=== PATIENT | male | born 1930 | race Caucasian/White ===

== ENCOUNTER 2017-11-16 07:04 | Emergency (ER) | payer OTHER ==
[~2017-11-16] VITALS: Ht 177.8 cm; Wt 75.0 kg
[~2017-11-16 07:04] MED LIST: ASPI81 PO; LISI-363 PO
[2017-11-16 07:08] VITALS: BP 160/71; PULSE 73; RESP 16; TEMP 97.8; O2SAT 99
[2017-11-16] MEDS ORDERED: FAMOTIDINE 20 MG/2 ML VIAL IV PUSH ONE (07:30)
[2017-11-16] MEDS ORDERED: diphenhydrAMINE HCL 50 MG/ML VIAL IVP ONE (07:30)
[2017-11-16] MEDS ORDERED: SODIUM CHLORIDE 0.9% FLUSH 10 ML FLUSH IV FLUSH PRN (07:30)
[2017-11-16] MEDS ORDERED: methylPREDNISolone SOD SUCC 125 MG/2 ML VIAL IV PUSH ONE (07:30)
--- NOTE | 2017-11-16 07:34 | PD ---
HPI Chief Complaint: Allergic/Adverse Reaction Time Seen by Provider: 07:27 Travel History International Travel<30 days: No Contact w/Intl Traveler<30days: No Traveled to known affect area: No History of Present Illness HPI 87-year-old male patient with history of hypertension currently on an MARIA DEL CARMEN inhibitor, presents to the ER today because he woke up this morning felt that his tongue was swollen. He states that he does not have difficulty swallowing and is able to breathe but has to breathe through his nose. He denies any shortness of breath or any other symptoms currently. He states that this has never happened to him before but he has been on MARIA DEL CARMEN inhibitors for years. He denies any other new medications or food. Modifying Factors: None Associated Signs & Symptoms: Tongue swelling Risk Factors: On MARIA DEL CARMEN inhibitor PFSH Past Medical History Cancer: No Cardiovascular Problems: Yes Endocrine: No Genitourinary: No Hypertension: Yes Immune Disorder: No Musculoskeletal: No Neurologic: Yes Psychiatric: No Reproductive: No Respiratory: No Social History Alcohol Use: No Tobacco Use: No Substance Use: No Allergies-Medications (Allergen,Severity, Reaction): Coded Allergies: No Known Allergies (Verified Adverse Reaction, Unknown, 11/16/17) Reported Meds & Prescriptions Reported Meds & Active Scripts Active Reported Aspirin 81 Mg Chew 81 Mg CHEW DAILY Lisinopril 10 Mg Tab 10 Mg PO BID Review of Systems Except as stated in HPI: all other systems reviewed are Neg Physical Exam Narrative GENERAL: Well-developed elderly male patient currently in mild distress. Awake and oriented 3. SKIN: Focused skin assessment warm/dry. HEAD: Atraumatic. Normocephalic. EYES: Pupils equal and round. No scleral icterus. No injection or drainage. ENT: Mucosa pink and moist. There is notable edema of the tongue. No erythema or exudates. No uvular edema. No uvular, palatal, or tonsillar deviation. Airway patent. NECK: Trachea midline. No JVD. Supple. No masses. CARDIOVASCULAR: Regular rate and rhythm. No murmur appreciated. RESPIRATORY: No accessory muscle use. Clear to auscultation. Breath sounds equal bilaterally. GASTROINTESTINAL: Abdomen soft, non-tender, nondistended. Hepatic and splenic margins not palpable. MUSCULOSKELETAL: No obvious deformities. No clubbing. No cyanosis. No edema. NEUROLOGICAL: Awake and alert. No obvious cranial nerve deficits. Motor grossly within normal limits. Slurred speech. PSYCHIATRIC: Appropriate mood and affect; insight and judgment normal. Data Data Last Documented VS Vital Signs Date Time Temp Pulse Resp B/P (MAP) Pulse Ox O2 Delivery O2 Flow Rate FiO2 11/16/17 08:44 54 17 140/65 (90) 99 Room Air 11/16/17 07:08 97.8 Orders Orders Ecg Monitoring (11/16/17 07:27) Iv Access Insert/Monitor (11/16/17 07:27) Oximetry (11/16/17 07:27) Diphenhydramine Inj (Benadryl Inj) (11/16/17 07:30) Methylprednisolone So Succ Inj (Solumedr (11/16/17 07:30) Famotidine Inj (Pepcid Inj) (11/16/17 07:30) Sodium Chloride 0.9% Flush (Ns Flush) (11/16/17 07:30) Ed Discharge Order (11/16/17 10:17) MDM Medical Decision Making Medical Screen Exam Complete: Yes Emergency Medical Condition: Yes Medical Record Reviewed: Yes Differential Diagnosis MARIA DEL CARMEN inhibitor reaction versus allergic reaction/angioedema Narrative Course I suspect an MARIA DEL CARMEN inhibitor reaction in this case. Patient has been on lisinopril for years. I will stop lisinopril. Patient was given Benadryl and Solu-Medrol in the ER. After a few hours, on reevaluation the patient is doing well, states his tongue is feeling better and he is swallowing without issues. At this point, my plan would be to release him with further treatment. We will have him follow-up with his primary care doctor for reevaluation and also for new blood pressure medication. Return for any worsening in symptoms as needed. The plan has been discussed with him and he states understanding. 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
[2017-11-16 07:43] VITALS: BP 149/68; PULSE 65; RESP 17; O2SAT 98
[2017-11-16] MEDS ORDERED: LISI10TA3 PO (07:50)
[2017-11-16] MEDS ORDERED: ASPI-516 CHEW (07:50)
[2017-11-16 08:44] VITALS: BP 140/65; PULSE 54; RESP 17; O2SAT 99
[2017-11-16] MEDS ORDERED: EPIP0.3I SQ (10:20)
[2017-11-16] MEDS ORDERED: MEDR4PAK PO (10:20)
[2017-11-16] MEDS ORDERED: DIPH25TA2 PO (10:20)
[2017-11-16 10:37] VITALS: BP 156/70
== END 2017-11-16 10:43 | disposition home or self-care (01) ==
LOC: NEPC 07:04
DX: T46.4X5A Adverse effect of angiotensin-converting-enzyme inhibitors, initial encounter (principal); T78.3XXA Angioneurotic edema, initial encounter; I10 Essential (primary) hypertension
CPT/HCPCS: 96374; 96375; 99284; J1200; J2930

== ENCOUNTER 2017-11-18 17:23 | Emergency (ER) | payer OTHER ==
[~2017-11-18] VITALS: Ht 180.3 cm; Wt 71.2 kg
[~2017-11-18 17:23] MED LIST changes: +ASPI-516 CHEW; -ASPI81 PO; +DIPH25TA2 PO; +EPIP0.3I SQ; -LISI-363 PO; +LISI10TA3 PO; +MEDR4PAK PO
[2017-11-18 17:33] VITALS: BP 172/72; PULSE 54; RESP 16; TEMP 98.3; O2SAT 98
[2017-11-18] MEDS ORDERED: LOSA25TA PO (17:45)
[2017-11-18] MEDS ORDERED: MULTTAB67 PO (17:45)
--- NOTE | 2017-11-18 19:06 | PD ---
HPI Chief Complaint: Skin Problem Time Seen by Provider: 18:35 Travel History International Travel<30 days: No Contact w/Intl Traveler<30days: No Traveled to known affect area: No History of Present Illness HPI This is an 87-year-old male here for evaluation of bleeding from his right ear at the site of a skin biopsy performed 2 days ago. He reports the area intermittently bleeds. Bleeding is controlled with applied pressure. His granddaughter encouraged him to come seek evaluation today. No fever or pain. Since in severity mild. Minimal active bleeding currently. PFSH Past Medical History Hx Anticoagulant Therapy: Yes (asa 81mg) Cancer: No Cardiovascular Problems: Yes (htn on meds) Diminished Hearing: No Endocrine: No Genitourinary: No Hypertension: Yes Immune Disorder: No Musculoskeletal: No Neurologic: Yes Psychiatric: No Reproductive: No Respiratory: No Immunizations Current: Yes Tetanus Vaccination: < 5 Years Influenza Vaccination: Yes Social History Alcohol Use: No Tobacco Use: No Substance Use: No Allergies-Medications (Allergen,Severity, Reaction): Coded Allergies: lisinopril (Verified Allergy, Severe, tounge swelling, 11/18/17) Reported Meds & Prescriptions Reported Meds & Active Scripts Active Reported Multiple Vitamin 1 Tab 1 Tab PO DAILY Losartan (Losartan Potassium) 25 Mg Tab 25 Mg PO DAILY Aspirin 81 Mg Chew 81 Mg CHEW DAILY Review of Systems Except as stated in HPI: all other systems reviewed are Neg General / Constitutional: No: Fever Eyes: No: Visual changes HENT: No: Headaches Cardiovascular: No: Chest Pain or Discomfort Physical Exam Narrative GENERAL: Alert and well-appearing 87-year-old male SKIN: Warm and dry. Biopsy site to the posterior aspect of the right helix measuring 1 cm. The area has mild bleeding. No evidence of infection HEAD: Normocephalic. EYES: No injection or drainage. Ears/nose/throat: Normal external appearance of the ear. See skin noted above NECK: Supple Data Data Last Documented VS Vital Signs Date Time Temp Pulse Resp B/P (MAP) Pulse Ox O2 Delivery O2 Flow Rate FiO2 11/18/17 17:33 98.3 54 16 172/72 (105) 98 MDM Medical Decision Making Medical Screen Exam Complete: Yes Emergency Medical Condition: Yes Differential Diagnosis Bleeding from biopsy site, wound infection, wound recheck Narrative Course 87-year-old male here for evaluation of bleeding from a skin biopsy site on his right ear. On exam he has minimal bleeding. No evidence of infection. Quick clot hemostatic dressing applied. Hemostasis achieved Diagnosis Primary Impression: Bleeding Referrals: Forest Fire Control Officer Additional Instructions: Keep the dressing in place for 48 hours. To remove the dressing apply warm water or get in the shower and then removed. Follow-up with the helicopter pilot instructor for recheck Disposition: 01 DISCHARGE HOME Condition: Stable Mary Montano Nov 18, 2017 19:06
== END 2017-11-18 19:16 | disposition home or self-care (01) ==
LOC: PHEFT 17:23
DX: H95.42 Postprocedural hemorrhage of ear and mastoid process following other procedure (principal); I10 Essential (primary) hypertension; Z88.8 Allergy status to other drugs, medicaments and biological substances; Z79.82 Long term (current) use of aspirin; Z79.899 Other long term (current) drug therapy
CPT/HCPCS: 12011

== ENCOUNTER 2018-03-01 09:03 | Emergency (ER) | payer OTHER ==
[~2018-03-01 09:03] MED LIST changes: -DIPH25TA2 PO; -EPIP0.3I SQ; -LISI10TA3 PO; +LOSA25TA PO; -MEDR4PAK PO; +MULTTAB67 PO
[2018-03-01 09:04] VITALS: BP 185/76; PULSE 82; RESP 18; TEMP 97.7
[2018-03-01] MEDS ORDERED: IRONTAB5 (09:17)
[2018-03-01] MEDS ORDERED: VITATAB43 PO (09:17)
--- NOTE | 2018-03-01 09:25 | PD ---
HPI Chief Complaint: Dizziness Time Seen by Provider: 09:17 Travel History International Travel<30 days: No Contact w/Intl Traveler<30days: No Traveled to known affect area: No History of Present Illness HPI Patient states that he has been feeling this sharp chest sensation that has been going on repeatedly over the last 2-3 days. Describes the area as substernal, intermittent, lasting approximately an hour at a time, patient has a hard time really developing good description of the pain, HE HAS USED WORDS such as jabbing, pooling, States allergy to lisinopril Past medical history significant for macular degeneration, dizziness, hypertension, ankle fracture surgery PFSH Past Medical History Hx Anticoagulant Therapy: Yes (asa 81mg) Cancer: No Cardiovascular Problems: Yes Diminished Hearing: No Endocrine: No Genitourinary: No Hypertension: Yes Immune Disorder: No Musculoskeletal: No Neurologic: Yes Psychiatric: No Reproductive: No Respiratory: No Immunizations Current: Yes Past Surgical History Other Surgery: No Social History Alcohol Use: No Tobacco Use: No Substance Use: No Allergies-Medications (Allergen,Severity, Reaction): Coded Allergies: lisinopril (Verified Allergy, Severe, tounge swelling, 03/01/18) Reported Meds & Prescriptions Reported Meds & Active Scripts Active Reported [Iron] Vitamin N11-Buhnz Acid (Cobalamine Combinations) 500-400 Mcg Tab 1 Tab PO DAILY Multiple Vitamin 1 Tab 1 Tab PO DAILY Losartan (Losartan Potassium) 25 Mg Tab 25 Mg PO DAILY Aspirin 81 Mg Chew 81 Mg CHEW DAILY Review of Systems General / Constitutional: No: Fever Eyes: No: Visual changes HENT: Positive: Lightheadedness Cardiovascular: Positive: Chest Pain or Discomfort Respiratory: No: Shortness of Breath Gastrointestinal: No: Abdominal Pain Genitourinary: No: Dysuria Musculoskeletal: No: Pain Skin: No Rash Neurologic: Positive: Weakness (Generalized), Dizziness Psychiatric: No: Depression Endocrine: No: Polydipsia Hematologic/Lymphatic: No: Easy Bruising Physical Exam Narrative GENERAL: SKIN: Warm and dry. HEAD: Atraumatic. Normocephalic. EYES: Pupils equal and round. No scleral icterus. No injection or drainage. ENT: No nasal bleeding or discharge. Mucous membranes pink and moist. NECK: Trachea midline. No JVD. CARDIOVASCULAR: Regular rate and rhythm. RESPIRATORY: No accessory muscle use. Clear to auscultation. Breath sounds equal bilaterally. GASTROINTESTINAL: Abdomen soft, non-tender, nondistended. Hepatic and splenic margins not palpable. MUSCULOSKELETAL: Extremities without clubbing, cyanosis, or edema. No obvious deformities. NEUROLOGICAL: Awake and alert. No obvious cranial nerve deficits. Motor grossly within normal limits. Five out of 5 muscle strength in the arms and legs. Normal speech. PSYCHIATRIC: Appropriate mood and affect; insight and judgment normal. Data Data Last Documented VS Vital Signs Date Time Temp Pulse Resp B/P (MAP) Pulse Ox O2 Delivery O2 Flow Rate FiO2 03/01/18 13:12 54 20 176/80 (112) 94 Nasal Cannula 2.00 03/01/18 09:04 97.7 Orders Orders Electrocardiogram (03/01/18 09:17) B-Type Natriuretic Peptide (03/01/18 09:17) Ckmb (Isoenzyme) Profile (03/01/18 09:17) Complete Blood Count With Diff (03/01/18 09:17) Comprehensive Metabolic Panel (03/01/18 09:17) Prothrombin Time / Inr (Pt) (03/01/18 09:17) Act Partial Throm Time (Ptt) (03/01/18 09:17) Troponin I (03/01/18 09:17) Lipase (03/01/18 09:17) Chest, Single Ap (03/01/18 09:17) Ecg Monitoring (03/01/18 09:17) Bilateral Bp Monitoring (03/01/18 09:17) Iv Access Insert/Monitor (03/01/18 09:17) Oximetry (03/01/18 09:17) Oxygen Administration (03/01/18 09:17) Sodium Chloride 0.9% Flush (Ns Flush) (03/01/18 09:30) Ct Pulmonary Angiogram (03/01/18 09:49) Iohexol 350 Inj (Omnipaque 350 Inj) (03/01/18 10:41) Ketorolac Inj (Toradol Inj) (03/01/18 11:15) Troponin I (03/01/18 12:25) Labs Laboratory Tests Test 03/01/18 09:25 03/01/18 11:25 White Blood Count 5.4 TH/MM3 Red Blood Count 3.61 MIL/MM3 Hemoglobin 10.7 GM/DL Hematocrit 30.9 % Mean Corpuscular Volume 85.4 FL Mean Corpuscular Hemoglobin 29.5 PG Mean Corpuscular Hemoglobin Concent 34.6 % Red Cell Distribution Width 14.8 % Platelet Count 174 TH/MM3 Mean Platelet Volume 8.3 FL Neutrophils (%) (Auto) 67.7 % Lymphocytes (%) (Auto) 21.1 % Monocytes (%) (Auto) 6.8 % Eosinophils (%) (Auto) 3.4 % Basophils (%) (Auto) 1.0 % Neutrophils # (Auto) 3.5 TH/MM3 Lymphocytes # (Auto) 1.1 TH/MM3 Monocytes # (Auto) 0.4 TH/MM3 Eosinophils # (Auto) 0.2 TH/MM3 Basophils # (Auto) 0.1 TH/MM3 CBC Comment DIFF FINAL Differential Comment Prothrombin Time 10.2 SEC Prothromb Time International Ratio 1.0 RATIO Activated Partial Thromboplast Time 25.7 SEC Blood Urea Nitrogen 33 MG/DL Creatinine 1.30 MG/DL Random Glucose 95 MG/DL Total Protein 8.1 GM/DL Albumin 3.7 GM/DL Calcium Level 8.8 MG/DL Alkaline Phosphatase 52 U/L Aspartate Amino Transf (AST/SGOT) 14 U/L Alanine Aminotransferase (ALT/SGPT) 16 U/L Total Bilirubin 0.5 MG/DL Sodium Level 141 MEQ/L Potassium Level 4.2 MEQ/L Chloride Level 107 MEQ/L Carbon Dioxide Level 25.5 MEQ/L Anion Gap 9 MEQ/L Estimat Glomerular Filtration Rate 52 ML/MIN Total Creatine Kinase 96 U/L Troponin I LESS THAN 0.02 NG/ML LESS THAN 0.02 NG/ML B-Type Natriuretic Peptide 46 PG/ML Lipase 94 U/L MDM Medical Decision Making Medical Screen Exam Complete: Yes Emergency Medical Condition: Yes Medical Record Reviewed: Yes Interpretation(s) EKG shows normal sinus rhythm, 64 bpm, right bundle branch block pattern, PVCs, no evidence of any SGARBOSSA'S criteria or ST elevation VT Differential Diagnosis Pneumonia versus pneumothorax versus STEMI versus pericardial effusion versus pulmonary embolus Narrative Course CBC does not show any evidence of leukocytosis, mild anemia 10/30, normal platelet count, no left shift Coagulation profile is within normal limits Electrolytes are all within normal limits, normal kidney liver and pancreatic functions. First set of cardiac enzymes are negative, and beta natruretic peptide is 46. CT Angio-Seal read by radiologist as no evidence of pulmonary embolism, coronary artery calcifications, lungs are clear, and no evidence of any pericardial effusion. Diagnosis Primary Impression: Atypical chest Patient Instructions: General Instructions, Noncardiac Chest Pain (ED) Scripts Ketorolac (Ketorolac) 10 Mg Tab 10 MG PO TID Y for Pain Management for 3 Days, #10 TAB 0 Refills Prov: Jean Pierre Tolliver MD 03/01/18 Disposition: 01 DISCHARGE HOME Condition: Stable Jean Pierre Tolliver MD March 01, 2018 09:25
[2018-03-01 09:28] VITALS: O2SAT 98
[2018-03-01] MEDS ORDERED: SODIUM CHLORIDE 0.9% FLUSH 10 ML FLUSH IVF PRN (09:30)
[2018-03-01 09:32] LABS: AUTOMATED NEUTROPHIL # 3.5 TH/MM3 (1.8-7.7); BASOPHIL # 0.1 TH/MM3 (0-0.2); EOSINOPHIL # 0.2 TH/MM3 (0-0.4); EOSINOPHIL % 3.4 % (0.0-4.0); HEMATOCRIT 30.9 % (39.0-51.0); HEMOGLOBIN 10.7 GM/DL (13.0-17.0); LYMPH % 21.1 % (9.0-44.0); LYMPHOCYTE # 1.1 TH/MM3 (1.0-4.8); MEAN CELL VOLUME 85.4 FL (80.0-100.0); MEAN CORPUSCULAR HEMOGLOBIN 29.5 PG (27.0-34.0); MEAN CORPUSCULAR HGB CONC 34.6 % (32.0-36.0); MEAN PLATELET VOLUME 8.3 FL (7.0-11.0); MONO % 6.8 % (0.0-8.0); MONOCYTE # 0.4 TH/MM3 (0-0.9); NEUT % 67.7 % (16.0-70.0); PLATELET COUNT 174 TH/MM3 (150-450); RED BLOOD COUNT 3.61 MIL/MM3 (4.50-5.90); RED CELL DISTRIBUTION WIDTH 14.8 % (11.6-17.2); WHITE BLOOD COUNT 5.4 TH/MM3 (4.0-11.0)
[2018-03-01 09:44] LABS: PROTHROMBIN TIME - PATIENT 10.2 SEC (9.8-11.6)
[2018-03-01 09:58] VITALS: BP_SYST 171; BP_SYST 174; BP_DIAS 70; BP_DIAS 76; PULSE 61; RESP 20; O2SAT 100
--- NOTE | 2018-03-01 10:04 | RADRPT ---
EXAM DATE: 03/01/2018 10:01 AM EDT AGE/SEX: 88 years / Male INDICATIONS: Chest pain, short of breath. CLINICAL DATA: This is the patient's initial encounter. Patient reports that signs and symptoms have been present for 1 day and indicates a pain score of 1/10. MEDICAL/SURGICAL HISTORY: Hypertension. None. COMPARISON: [facility] [place], 06/27/2011. . FINDINGS: No new focal pleural or parenchymal opacities. Cardiomediastinal contours are stable. Osseous structu res are intact. CONCLUSION: 1. No acute abnormality or significant interval change. Electronically signed by: Quirino Butler MD 03/01/2018 10:02 AM EDT
[2018-03-01 10:13] LABS: ALBUMIN 3.7 GM/DL (3.4-5.0); BICARBONATE 25.5 MEQ/L (21.0-32.0); CALCIUM 8.8 MG/DL (8.5-10.1); GLUCOSE,RANDOM 95 MG/DL (74-106)
[2018-03-01 10:16] LABS: ALT (GPT) 16 U/L (12-78); AST (GOT) 14 U/L (15-37); GLOMERULAR FILTRATION RATE 52 ML/MIN (>89)
[2018-03-01 10:18] LABS: TOTAL BILIRUBIN ADULT 0.5 MG/DL (0.2-1.0); TOTAL PROTEIN 8.1 GM/DL (6.4-8.2)
[2018-03-01 10:19] LABS: ALKALINE PHOSPHATASE 52 U/L (45-117); CHLORIDE 107 MEQ/L (98-107); SODIUM (NA) 141 MEQ/L (136-145)
[2018-03-01 10:21] LABS: TROPONIN I LESS THAN 0.02 NG/ML (0.02-0.05)
[2018-03-01 10:24] LABS: BLOOD UREA NITROGEN 33 MG/DL (7-18)
[2018-03-01] MEDS ORDERED: IOHEXOL 350 MG/ML 10 ML VIAL (for RAD DIAG) IVCONTRAST ONE (10:41)
[2018-03-01 10:50] VITALS: BP 164/74; PULSE 54; RESP 20; O2SAT 93
--- NOTE | 2018-03-01 10:53 | RADRPT ---
EXAM DATE: 03/01/2018 10:40 AM EDT AGE/SEX: 88 years / Male INDICATIONS: Intermittent chest pain and dizziness since last night. CLINICAL DATA: This is the patient's initial encounter. Patient reports that signs and symptoms have been present for 1 day and indicates a pain score of 2/10. MEDICAL/SURGICAL HISTORY: Hypertension. Cardiovascular disease. None. RADIATION DOSE: 10.78 CTDI (mGy) COMPARISON: [facility], CHEST SINGLE AP, 03/01/2018. . TECHNIQUE: Volumetric scanning was performed using a multi-row detector CT scanner during bolus infu chelsey of 75 ml Omnipaque 350 (iohexol) nonionic water-soluble contrast as a single exam dose. The gmóez a was post processed with a variety of visualization algorithms including full volume maximum intensi ty projection and sliding thin slab reformation. Using automated exposure control and adjustment of the mA and/or kV according to patient size, radiation dose was kept as low as reasonably achievable t o obtain optimal diagnostic quality images. FINDINGS: Pulmonary Arteries: No filling defects are seen in the pulmonary arteries out to the subsegmental ve ssels. The left and right pulmonary arteries are normal in diameter. Lung: No infiltrates seen. Effusion: None. Mediastinum: No evidence of mediastinal or hilar adenopathy. Coronary artery calcifications are pres ent. Other: The axilla is unremarkable. CONCLUSION: 1. No evidence of pulmonary embolism. 2. The lungs are clear. 3. Coronary artery calcifications. Electronically signed by: Scott Sal MD 03/01/2018 10:51 AM EDT
[2018-03-01] MEDS ORDERED: KETOROLAC TROMETHAMINE 30 MG/ML (IVP) VIAL IV PUSH ONE (11:15)
[2018-03-01 11:50] VITALS: BP 169/70; PULSE 61; RESP 20; O2SAT 100
[2018-03-01 13:12] VITALS: BP 176/80; PULSE 54; RESP 20; O2SAT 94
[2018-03-01] MEDS ORDERED: KETO10 PO (14:01)
--- NOTE | 2018-03-01 14:49 | EKG ---
Date Performed: 03/01/2018 Time Performed: 09:17:45 PTAGE: 88 years EKG: Sinus rhythm WITH OCCASIONAL VENTRICULAR PREMATURE COMPLEXES MARKED LEFT AXIS DEVIATION RIGHT BUNDLE BRANCH BLOCK Left anterior fascicular block ABNORMAL ECG PREVIOUS TRACING : 06/28/2011 08.44 DOCTOR: Austin Carbajal Interpretating Date/Time 03/01/2018 14:45:40
== END 2018-03-01 14:19 | disposition home or self-care (01) ==
LOC: PHED 09:03
DX: R07.89 Other chest pain (principal); I10 Essential (primary) hypertension; R42 Dizziness and giddiness; R94.31 Abnormal electrocardiogram [ECG] [EKG]; R53.1 Weakness; Z88.8 Allergy status to other drugs, medicaments and biological substances; Z79.82 Long term (current) use of aspirin
CPT/HCPCS: 71045; 71275; 80053; 82550; 83690; 83880; 84484; 85025; 85610; 85730; 93005; 96374; 99285; J1885; Q9967

== ENCOUNTER 2018-03-14 09:39 | Observation (INO) | payer OTHER ==
[~2018-03-14] VITALS: Ht 180.3 cm; Wt 61.4 kg
[2018-03-14] VITALS (8 sets, daily range): BP systolic 116–181; BP diastolic 57–78; PULSE 56–82; RESP 16–22; TEMP 96–98.7; O2SAT 95–100
[~2018-03-14 09:39] MED LIST changes: +IRONTAB5; +KETO10 PO; +VITATAB43 PO
[2018-03-14] MEDS ORDERED: SODIUM CHLOR 0.9% 1000 ML INJ 1,000 ML IV ONE (09:51)
--- NOTE | 2018-03-14 09:57 | PD ---
HPI Chief Complaint: Neuro Symptoms/ Deficits Time Seen by Provider: 09:44 Travel History International Travel<30 days: No Contact w/Intl Traveler<30days: No Traveled to known affect area: No History of Present Illness HPI This 88-year-old man is brought by family members because of slurred speech. He lives with his grandson who saw him at 630 and said he seemed okay. His girlfriend called him at 830 and so the gentleman was slurring his speech. The son says that he had trouble standing. He was leaning to one side. He is not complaining of headache. He does have a history of dementia. The son thinks he may have had a stroke several years ago. He is not on any blood thinners. He was evaluated here for atypical chest pain on March 01. At that time his creatinine was 1.3. PFSH Past Medical History Hx Anticoagulant Therapy: Yes (asa 81mg) Cancer: No Cardiovascular Problems: Yes Diminished Hearing: No Endocrine: No Genitourinary: No Hypertension: Yes Immune Disorder: No Musculoskeletal: No Neurologic: Yes Psychiatric: No Reproductive: No Respiratory: No Immunizations Current: Yes Past Surgical History Other Surgery: No Social History Alcohol Use: No Tobacco Use: No Substance Use: No Allergies-Medications (Allergen,Severity, Reaction): Coded Allergies: lisinopril (Verified Allergy, Severe, tounge swelling, 03/14/18) Reported Meds & Prescriptions Reported Meds & Active Scripts Active Reported Ferrous Sulfate 325 Mg (65 Mg Iron) Tablet 325 Mg PO DAILY Thera-M (Multiple Vitamins W/ Minerals) 1 Tab 1 Tab PO DAILT Quetiapine (Quetiapine Fumarate) 50 Mg Tab 50 Mg PO HS Donepezil 10 Mg Tab 10 Mg PO HS Vitamin E23-Keifj Acid (Cobalamine Combinations) 500-400 Mcg Tab 1 Tab PO DAILY Losartan (Losartan Potassium) 25 Mg Tab 25 Mg PO DAILY Aspirin 81 Mg Chew 81 Mg CHEW DAILY Review of Systems ROS Limitations: Poor Historian Except as stated in HPI: all other systems reviewed are Neg Neurologic: Positive: Weakness, Slurred Speech Physical Exam Narrative GENERAL: Elderly male SKIN: Focused skin assessment warm/dry. HEAD: Atraumatic. Normocephalic. EYES: Pupils equal and round. No scleral icterus. No injection or drainage. ENT: No nasal bleeding or discharge. Mucous membranes pink and moist. NECK: Trachea midline. No JVD. CARDIOVASCULAR: Regular rate and rhythm. No murmur appreciated. RESPIRATORY: No accessory muscle use. Clear to auscultation. Breath sounds equal bilaterally. GASTROINTESTINAL: Abdomen soft, non-tender, nondistended. Hepatic and splenic margins not palpable. MUSCULOSKELETAL: No obvious deformities. No clubbing. No cyanosis. No edema. NEUROLOGICAL: Awake and alert. No obvious cranial nerve deficits. Motor grossly within normal limits. Speech is slurred. There is no obvious weakness. Sensation appears to be intact. He is oriented to the year but not to the month. He does know he is in [place]. He is confused and asks questions repeatedly. Psychiatric: He is somewhat volatile he gets angry easily Data Data Last Documented VS Vital Signs Date Time Temp Pulse Resp B/P (MAP) Pulse Ox O2 Delivery O2 Flow Rate FiO2 03/14/18 11:20 82 16 121/57 (78) 99 Room Air 03/14/18 09:40 98.7 Orders Orders Cath For Specimen (03/14/18 09:51) Neuro Checks Q2HX12,Q4H (03/14/18 09:51) Nursing Bedside Swallow Assess .ONCE (03/14/18 09:51) Activity Bed Rest (03/14/18 09:51) Diet Npo (03/14/18 Breakfast) Prothrombin Time / Inr (Pt) (03/14/18 09:51) Act Partial Throm Time (Ptt) (03/14/18 09:51) Complete Blood Count With Diff (03/14/18 09:51) Basic Metabolic Panel (Bmp) (03/14/18 09:51) Fibrinogen (03/14/18 09:51) Creatine Kinase (Cpk) (03/14/18 09:51) Troponin I (03/14/18 09:51) Ua Includes Microscopic (03/14/18 09:51) Drug Screen, Random Urine (03/14/18 09:51) Type And Screen (03/14/18 09:51) Ct Brain W/O Iv Contrast(Rout) (03/14/18 ) Electrocardiogram (03/14/18 ) Consult Neurology (03/14/18 09:51) Sodium Chlor 0.9% 1000 Ml Inj (Ns 1000 M (03/14/18 09:51) Blood Glucose (6/13/18 09:51) Ecg Monitoring (03/14/18 09:51) Iv Access Insert/Monitor (03/14/18 09:51) NPO (03/14/18 09:51) Oximetry (03/14/18 09:51) Resp Oxygen Nc Stroke (03/14/18 ) Cta Brain W Iv Contrast W 3d (03/14/18 09:58) Cta Neck W Iv Contrast W 3d (03/14/18 09:58) Mri Brain W/O Contrast (03/14/18 10:23) Iodixanol 320 Inj (Rad Ct) (Visipaque 32 (03/14/18 10:34) (Hub Use Only)Inp Phy Cons/Ref (03/14/18 10:46) Aspirin (Aspirin) (03/14/18 11:30) Admit Order (Ed Use Only) (03/14/18 11:24) Labs Laboratory Tests Test 03/14/18 09:48 White Blood Count 6.1 TH/MM3 Red Blood Count 3.41 MIL/MM3 Hemoglobin 10.2 GM/DL Hematocrit 29.0 % Mean Corpuscular Volume 85.2 FL Mean Corpuscular Hemoglobin 29.8 PG Mean Corpuscular Hemoglobin Concent 35.0 % Red Cell Distribution Width 14.6 % Platelet Count 193 TH/MM3 Mean Platelet Volume 8.3 FL Neutrophils (%) (Auto) 79.6 % Lymphocytes (%) (Auto) 13.5 % Monocytes (%) (Auto) 5.7 % Eosinophils (%) (Auto) 0.8 % Basophils (%) (Auto) 0.4 % Neutrophils # (Auto) 5.0 TH/MM3 Lymphocytes # (Auto) 0.8 TH/MM3 Monocytes # (Auto) 0.3 TH/MM3 Eosinophils # (Auto) 0.0 TH/MM3 Basophils # (Auto) 0.0 TH/MM3 CBC Comment DIFF FINAL Differential Comment Prothrombin Time 10.6 SEC Prothromb Time International Ratio 1.0 RATIO Activated Partial Thromboplast Time 25.4 SEC Fibrinogen 265 mg/dL Blood Urea Nitrogen 27 MG/DL Creatinine 1.30 MG/DL Random Glucose 112 MG/DL Calcium Level 8.4 MG/DL Sodium Level 141 MEQ/L Potassium Level 4.3 MEQ/L Chloride Level 106 MEQ/L Carbon Dioxide Level 26.6 MEQ/L Anion Gap 8 MEQ/L Estimat Glomerular Filtration Rate 52 ML/MIN Total Creatine Kinase 136 U/L Troponin I LESS THAN 0.02 NG/ML MDM Medical Decision Making Medical Screen Exam Complete: Yes Emergency Medical Condition: Yes Medical Record Reviewed: Yes Differential Diagnosis Differential includes CVA, TIA, adverse medication reaction Narrative Course CT is read as negative. A CTA has been done and there is some blockage at the right carotid. She has been given aspirin. He will be admitted this appears to be a stroke or TIA. He still has some residual slurred speech though the speech seemed worse when he first came in. Case was discussed with Dr. Lobato. He was not thought to be a candidate for TPA. The timing is a little bit confusing and the deficit is relatively mild. The risks would be high because of his advanced age and dementia Diagnosis Primary Impression: CVA (cerebral vascular accident) Admitting Information Admitting Physician Requests: Admit Disposition: 01 DISCHARGE HOME Condition: Stable Jeff Guajardo MD Mar 14, 2018 09:57
[2018-03-14 10:02] LABS: BASOPHIL % 0.4 % (0.0-2.0); EOSINOPHIL % 0.8 % (0.0-4.0); HEMOGLOBIN 10.2 GM/DL (13.0-17.0); LYMPH % 13.5 % (9.0-44.0); LYMPHOCYTE # 0.8 TH/MM3 (1.0-4.8); MEAN CELL VOLUME 85.2 FL (80.0-100.0); MEAN CORPUSCULAR HEMOGLOBIN 29.8 PG (27.0-34.0); MEAN PLATELET VOLUME 8.3 FL (7.0-11.0); MONO % 5.7 % (0.0-8.0); MONOCYTE # 0.3 TH/MM3 (0-0.9); NEUT % 79.6 % (16.0-70.0); PLATELET COUNT 193 TH/MM3 (150-450); RED BLOOD COUNT 3.41 MIL/MM3 (4.50-5.90); RED CELL DISTRIBUTION WIDTH 14.6 % (11.6-17.2); WHITE BLOOD COUNT 6.1 TH/MM3 (4.0-11.0)
--- NOTE | 2018-03-14 10:06 | RADRPT ---
EXAM DATE: 03/14/2018 10:02 AM EDT AGE/SEX: 88 years / Male INDICATIONS: Stroke alert. Slurred speech. Altered mental status. CLINICAL DATA: This is the patient's initial encounter. Patient reports that signs and symptoms have been present for 1 day and indicates a pain score of 0/10. MEDICAL/SURGICAL HISTORY: Hypertension. Dementia. None. RADIATION DOSE: 56.13 CTDI (mGy) COMPARISON: [facility] – [place], [place] BRAIN W/O CONTRAST, 06/27/2011. . TECHNIQUE: CT of the head without contrast. Using automated exposure control and adjustment of the mA and/or kV according to patient size, radiation dose was kept as low as reasonably achievable to ob tain optimal diagnostic quality images. FINDINGS: Cerebrum: The ventricles are normal for age. No evidence of midline shift, mass lesion, hemorrhage or acute infarction. No extraaxial fluid collections are seen. Posterior Fossa: The cerebellum and brainstem are intact. The 4th ventricle is midline. The cerebe llopontine angle is unremarkable. Extracranial: The visualized portion of the orbits is intact. Skull: The calvaria is intact. No evidence of skull fracture. CONCLUSION: 1. Negative for acute process Electronically signed by: Seth Gonzales MD 03/14/2018 10:05 AM EDT
[2018-03-14 10:22] LABS: CHLORIDE 106 MEQ/L (98-107); SODIUM (NA) 141 MEQ/L (136-145)
[2018-03-14 10:25] LABS: PROTHROMBIN TIME - PATIENT 10.6 SEC (9.8-11.6)
[2018-03-14 10:26] LABS: CALCIUM 8.4 MG/DL (8.5-10.1)
[2018-03-14 10:27] LABS: BICARBONATE 26.6 MEQ/L (21.0-32.0); BLOOD UREA NITROGEN 27 MG/DL (7-18); GLUCOSE,RANDOM 112 MG/DL (74-106)
[2018-03-14 10:30] LABS: GLOMERULAR FILTRATION RATE 52 ML/MIN (>89)
[2018-03-14] MEDS ORDERED: FERR325T18 PO (10:33)
[2018-03-14] MEDS ORDERED: THERTAB17 PO (10:33)
[2018-03-14] MEDS ORDERED: QUET5TAB PO (10:33)
[2018-03-14] MEDS ORDERED: DONE10TA7 PO (10:33)
[2018-03-14] MEDS ORDERED: IODIXANOL 320 MG/ML 10 ML VIAL (for Rad CT) IVCONTRAST ONE (10:34)
[2018-03-14 10:35] LABS: TROPONIN I LESS THAN 0.02 NG/ML (0.02-0.05)
--- NOTE | 2018-03-14 11:11 | RADRPT ---
EXAM DATE: 03/14/2018 10:22 AM EDT AGE/SEX: 88 years / Male INDICATIONS: Stroke alert. Slurred speech. Altered mental status. CLINICAL DATA: This is the patient's initial encounter. Patient reports that signs and symptoms have been present for 1 day and indicates a pain score of 0/10. MEDICAL/SURGICAL HISTORY: Hypertension. Dementia. None. RADIATION DOSE: 42.27 CTDI (mGy) ; Combined studies COMPARISON: No prior exams available for comparison. TECHNIQUE: Volumetric scanning was performed using a multi-row detector CT scanner during bolus infu chelsey of 95 ml Visipaque 320 (iodixanol) nonionic water-soluble contrast as a cumulative dose for mul tiple exams. The data was post processed with a variety of visualization algorithms including full volume maximum intensity projection, multi-planar sliding thin slab reformation, curved planar reform ation, and surface rendering techniques. Using automated exposure control and adjustment of the mA a nd/or kV according to patient size, radiation dose was kept as low as reasonably achievable to obtain optimal diagnostic quality images. FINDINGS: There is excellent visualization of the major intracranial arteries out to the second-order branch ve ssels. There is no evidence for aneurysm, vessel truncation or stenosis, and no evidence for vascula r malformation. Moderate atherosclerotic intracranial vascular disease. CONCLUSION: 1. Moderate atherosclerotic intracranial vascular disease without major branch vessel occlusion. Electronically signed by: Seth Gonzales MD 03/14/2018 11:10 AM EDT
--- NOTE | 2018-03-14 11:13 | RADRPT ---
EXAM DATE: 03/14/2018 10:37 AM EDT AGE/SEX: 88 years / Male INDICATIONS: Stroke alert. Slurred speech. Altered mental status. CLINICAL DATA: This is the patient's initial encounter. Patient reports that signs and symptoms have been present for 1 day and indicates a pain score of 0/10. MEDICAL/SURGICAL HISTORY: Hypertension. Dementia. None. RADIATION DOSE: 42.27 CTDI (mGy) COMPARISON: [facility] – [place] CAROTID ARTERIES, 06/28/2011. . TECHNIQUE: Volumetric scanning was performed using a multirow detector CT scanner during bolus infus ion of 95 ml Visipaque 320 (iodixanol) nonionic water-soluble contrast as a cumulative dose for mult iple exams. The data was postprocessed with a variety of visualization algorithms including full-vo lume maximum intensity projection, multiplanar sliding thin-slab reformation, curved-planar reformati on, and surface-rendering techniques. Using automated exposure control and adjustment of the mA and/ or kV according to patient size, radiation dose was kept as low as reasonably achievable to obtain op timal diagnostic quality images. FINDINGS: Aortic Arch: Moderate vascular calcifications are seen at the origin of the innominate artery, and l eft subclavian. Left carotid arises from a bovine configuration. Right Carotid: Moderate osseous chronic vascular calcifications are evident, not felt to be hemodyna mically significant. The bulk of the plaque is hard. Left Carotid: Minimal soft plaque is evident with moderate calcification at the origin. Lumen is com promised I 60-70%. Carotid ultrasound be of benefit to exclude significant stenosis. Vertebrals: Both vertebral arteries are patent with this right small and diminutive. Elevated flow velocities and ICA/CCA ratios have been found to correlate with increased degrees of ve ssel stenosis, calculated as percentage of diameter relative to a normal segment of distal ICA/CCA. CONCLUSION: 1. Borderline significant stenosis on the left. Ultrasound the carotids would be of benefit. Electronically signed by: Seth Gonzales MD 03/14/2018 11:12 AM EDT
[2018-03-14] MEDS ORDERED: SODIUM CHLORIDE 0.9% FLUSH 10 ML FLUSH IV FLUSH PRN (11:30)
[2018-03-14] MEDS ORDERED: ASPIRIN 325 MG TAB PO ONE (11:30)
--- NOTE | 2018-03-14 11:50 | HHI.HP ---
[facility] Service [facility] Primary Care Physician [facility] Admission Diagnosis CVA, TIA Diagnoses: Chief Complaint: ams Travel History International Travel<30 Days: No Contact w/Intl Traveler <30 Da: No Traveled to Known Affected Are: No History of Present Illness patient is a 88-year-old gentleman with a history of progressive dementia. He had an episode of confusion with some slurred speech while being quite antagonizing to his family members with whom he lives. He notes no chest pain or shortness of breath. He has had no symptoms of diarrhea or cough. At this time he appears to be back to baseline per the family at the bedside. His speech is back to baseline. He is following commands. He is moving all 4 extremities and there is no focal deficit. Patient reports he was recently started on "memory pills "due to worsening dementia. Patient was brought to the emergency room for further evaluation due to acute neurological complaints. Initial imaging is unremarkable. Patient will be observed in the hospital for further evaluation Review of Systems Constitutional: DENIES: Diaphoretic episodes, Fatigue, Fever, Weight gain, Weight loss, Chills, Dizziness, Change in appetite, Night Sweats Endocrine: DENIES: Heat/cold intolerance, Polydipsia, Polyuria, Polyphagia Eyes: DENIES: Blurred vision, Diplopia, Eye inflammation, Eye pain, Vision loss , Photosensitivity, Double Vision Ears, nose, mouth, throat: DENIES: Tinnitus, Hearing loss, Vertigo, Nasal discharge, Oral lesions, Throat pain, Hoarseness, Ear Pain, Running Nose, Epistaxis, Sinus Pain, Toothache, Odynophagia Respiratory: DENIES: Apneas, Cough, Snoring, Wheezing, Hemoptysis, Sputum production, Shortness of breath Cardiovascular: DENIES: Chest pain, Palpitations, Syncope, Dyspnea on Exertion , PND, Lower Extremity Edema, Orthopnea, Claudication Gastrointestinal: DENIES: Abdominal pain, Black stools, Bloody stools, Constipation, Diarrhea, Nausea, Vomiting, Difficulty Swallowing, Anorexia Genitourinary: DENIES: Sexual dysfunction, Urinary frequency, Urinary incontinence, Urgency, Hematuria, Dysuria, Nocturia, Penile Discharge, Testicular Pain, Testicular Swelling Musculoskeletal: DENIES: Joint pain, Muscle aches, Stiffness, Joint Swelling, Back pain, Neck pain Integumentary: DENIES: Abnormal pigmentation, Nail changes, Pruritus, Rash Hematologic/lymphatic: DENIES: Bruising, Lymphadenopathy Immunologic/allergic: DENIES: Eczema, Urticaria Neurologic: DENIES: Abnormal gait, Headache, Localized weakness, Paresthesias, Seizures, Speech Problems, Tremor, Poor Balance Psychiatric: COMPLAINS OF: Confusion, DENIES: Anxiety, Mood changes, Depression , Hallucinations, Agitation, Suicidal Ideation, Homicidal Ideation, Delusions Past Family Social History Past Medical History Dementia Hypertension Iron deficiency anemia Past Surgical History Denies Reported Medications Reviewed in the EMR, recently prescribed Seroquel and donezepil but has not yet started Allergies: Coded Allergies: lisinopril (Verified Allergy, Severe, tounge swelling, 03/14/18) Active Ordered Medications Reviewed in the EMR Family History Patient does not recall Social History Lives with his family, independent with ADLs No tobacco, alcohol or illicit drug use Physical Exam Vital Signs Vital Signs Date Time Temp Pulse Resp B/P (MAP) Pulse Ox O2 Delivery O2 Flow Rate FiO2 03/14/18 11:20 82 16 121/57 (78) 99 Room Air 03/14/18 09:45 Room Air 03/14/18 09:40 98.7 72 18 116/69 (85) 98 03/14/18 09:40 18 98 Room Air 03/14/18 09:40 98 Room Air Physical Exam GENERAL: This is a well-nourished, well-developed patient, in no apparent distress. Poor dentition SKIN: No rashes, ecchymoses or lesions. Cool and dry. HEAD: Atraumatic. Normocephalic. No temporal or scalp tenderness. EYES: Pupils equal round and reactive. Extraocular motions intact. No scleral icterus. No injection or drainage. ENT: Nose without bleeding, purulent drainage or septal hematoma. Throat without erythema, tonsillar hypertrophy or exudate. Uvula midline. Airway patent. NECK: Trachea midline. No JVD or lymphadenopathy. Supple, nontender, no meningeal signs. CARDIOVASCULAR: Regular rate and rhythm without murmurs, gallops, or rubs. RESPIRATORY: Clear to auscultation. Breath sounds equal bilaterally. No wheezes , rales, or rhonchi. GASTROINTESTINAL: Abdomen soft, non-tender, nondistended. No hepato-splenomegaly , or palpable masses. No guarding. MUSCULOSKELETAL: Extremities without clubbing, cyanosis, or edema. No joint tenderness, effusion, or edema noted. No calf tenderness. Negative Homans sign bilaterally. NEUROLOGICAL: Awake and alert. Cranial nerves II through XII intact. Motor and sensory grossly within normal limits. Five out of 5 muscle strength in all muscle groups. Normal speech. Laboratory Laboratory Tests Test 03/14/18 09:48 White Blood Count 6.1 Red Blood Count 3.41 Hemoglobin 10.2 Hematocrit 29.0 Mean Corpuscular Volume 85.2 Mean Corpuscular Hemoglobin 29.8 Mean Corpuscular Hemoglobin Concent 35.0 Red Cell Distribution Width 14.6 Platelet Count 193 Mean Platelet Volume 8.3 Neutrophils (%) (Auto) 79.6 Lymphocytes (%) (Auto) 13.5 Monocytes (%) (Auto) 5.7 Eosinophils (%) (Auto) 0.8 Basophils (%) (Auto) 0.4 Neutrophils # (Auto) 5.0 Lymphocytes # (Auto) 0.8 Monocytes # (Auto) 0.3 Eosinophils # (Auto) 0.0 Basophils # (Auto) 0.0 CBC Comment DIFF FINAL Differential Comment Prothrombin Time 10.6 Prothromb Time International Ratio 1.0 Activated Partial Thromboplast Time 25.4 Fibrinogen 265 Blood Urea Nitrogen 27 Creatinine 1.30 Random Glucose 112 Calcium Level 8.4 Sodium Level 141 Potassium Level 4.3 Chloride Level 106 Carbon Dioxide Level 26.6 Anion Gap 8 Estimat Glomerular Filtration Rate 52 Total Creatine Kinase 136 Troponin I LESS THAN 0.02 Result Diagram: 03/14/1894703/14/18947 Imaging Last Impressions Neck CTA 03/14/18957 Signed Impressions: CONCLUSION: 1. Borderline significant stenosis on the left. Ultrasound the carotids would be of benefit. Head CTA 03/14/18957 Signed Impressions: CONCLUSION: 1. Moderate atherosclerotic intracranial vascular disease without major [facility] h vessel occlusion. Head CT 03/14/18 0000 Signed Impressions: CONCLUSION: 1. Negative for acute process Assessment and Plan Problem List: (1) Neurological symptoms ICD Code: R29.90 - Unspecified symptoms and signs involving the nervous system Plan: Patient with unclear presentation whether it was a TIA versus acute psychosis related to dementia remains unchanged. Current neurologic workup in progress for her MRI. CT, CTA head and neck unremarkable at this time. Patient blood pressure stable. Urinalysis is pending We will follow clinically. Patient was recently put on quetiapine and danazepil for increased dementia symptoms. Care plan discussed with the ER MD and family at bedside. Code Status DO NOT RESUSCITATE Discussed Condition With Patient, son, ER Kiley Hairston MD Mar 14, 2018 11:50
[2018-03-14 12:08] LABS: BILIRUBIN, URINE NEG (NEG); BLOOD, URINE TRACE (NEG); GLUCOSE,URINE NEG (NEG); KETONE, URINE NEG (NEG); NITRITE,URINE NEG (NEG); PH, URINE 5.5 (5.0-8.5); URINE COLOR YELLOW (YELLW/STRAW); URINE LEUKOCYTE ESTERASE NEG (NEG)
[2018-03-14 12:16] LABS: WBC, URINE 0-2 /hpf (0-5)
--- NOTE | 2018-03-14 12:38 | RADRPT ---
EXAM DATE: 03/14/2018 12:29 PM EDT AGE/SEX: 88 years / Male INDICATIONS: CVA. Slurred speech. CLINICAL DATA: This is the patient's initial encounter. Patient reports that signs and symptoms have been present for 1 day and indicates a pain score of 0/10. MEDICAL/SURGICAL HISTORY: Hypertension. . Right ankle. COMPARISON: No prior exams available for comparison. TECHNIQUE: Multiplanar, multisequence examination of the brain was performed without contrast. FINDINGS: There is no recent infarct on the diffusion-weighted images. There is no mass effect or midline shift . No hydrocephalus. Mild white matter ischemic changes are present. No sellar mass. No abnormal extra -axial fluid collections CONCLUSION: 1. No recent infarct or acute findings. Mild white matter ischemic changes, chronic. Electronically signed by: Odell Banks MD 03/14/2018 12:37 PM EDT
--- NOTE | 2018-03-14 13:05 | EKG ---
Date Performed: 03/14/2018 Time Performed: 09:47:57 PTAGE: 88 years EKG: Sinus rhythm WITH FREQUENT VENTRICULAR PREMATURE COMPLEXES RIGHT BUNDLE BRANCH BLOCK LEFT ANTERIOR FASCICULAR BLO CK POSSIBLE SEPTAL MYOCARDIAL INFARCTION ABNORMAL ECG INTERPRETATION BASED ON A DEFAULT AGE OF 40 ROGELIO CURRY PREVIOUS TRACING : 03/01/2018 09.17 DOCTOR: Milton Moncada Interpretating Date/Time 03/14/2018 13:03:08
[2018-03-14] MEDS: HEPARIN SODIUM - SQ 10,000 UNITS/ML VIAL SQ SCH ×2 (14:07→21:23)
--- NOTE | 2018-03-14 16:07 | RADRPT ---
EXAM DATE: 03/14/2018 3:35 PM EDT AGE/SEX: 88 years / Male INDICATIONS: Altered mental status. Slurred speech. CLINICAL DATA: This is the patient's initial encounter. Patient reports that signs and symptoms have been present for 1 day and indicates a pain score of 0/10. MEDICAL/SURGICAL HISTORY: . Hypertension. Dementia . COMPARISON: [facility] – [place], CAROTID ARTERIES, 06/28/2011. . CTA done here. VELOCITY PARAMETERS: ICA/CCA Ratio: Right 2.1 , Left 1.5 ICA: Right 95.2 cm/sec, Left 87.7 cm/sec CCA: Right 45.1 cm/sec, Left 60.3 cm/sec ECA: Right 76.3 cm/sec, Left 65.3 cm/sec Vertebral: Right not visualized. cm/sec absent, Left 61.2 cm/sec antegrade FINDINGS: Right Carotid: Calcific plaque on the right and elevated ratio and depressed velocities. Stenosis is is not felt to be significant at this time. Left Carotid: Calcified plaque without hemodynamically significant stenosis. Other: None antegrade flow both vertebral bodies.. CONCLUSION: Calcified plaques bilaterally worse on the right not felt to be significant at this time by asaf bloom. CT angiogram may be helpful. Electronically signed by: Seth Gonzales MD 03/14/2018 3:43 PM EDT
--- NOTE | 2018-03-14 16:15 | MB ---
cc: Lisseth Lobato MD DATE: 03/14/2018 REASON FOR CONSULTATION: Initially stroke alert. HISTORY OF PRESENT ILLNESS: An 88-year-old man with a history of dementia with confusion and some slurred speech today, worried that he may have had a stroke, came in as a stroke alert. Symptoms had improved by the time he came here and given his questionable symptoms, he was not deemed to be a TPA candidate. He seems to be moving everything now equally, is confused, needing to use a urinal. He has a history of dementia, hypertension, iron deficiency anemia. HOME MEDICATIONS: Aricept, Seroquel. ALLERGIES: LISINOPRIL. SOCIAL HISTORY: Lives with family, does not smoke, drink or use drugs. PHYSICAL EXAMINATION: GENERAL: He is awake and alert. NECK: Supple, no bruits. HEART: Regular. NEUROLOGIC: He knows himself. His pupils are reactive. Face symmetrical. Tongue midline. Motor: I do not see any lateralizing weakness. Withdraws, holds his arms up. Toes downgoing. DTRs are 1+. Gait is withheld at this time. IMAGING: Brain MRI did not show anything acute. His CTA showed possible borderline left carotid. They recommend a carotid ultrasound, I did order that. [place] showed moderate atherosclerosis. LABORATORY DATA: Reviewed. Hemoglobin 10.2. Chemistries: BUN 27, GFR 52. Hemoglobin A1c is pending. Lipids are pending. Echo is pending. Toxicology screen was negative. IMPRESSION/PLAN: Questionable TIA. Recommend putting him on aspirin. Can tolerate a full dose and put him on a baby aspirin. Will get a carotid ultrasound, lipid panel, hemoglobin A1c, and 2D echo, PT, OT evaluation and if stable discharge planning. Lisseth Lobato MD DF/LAURI , 03:34 PM , 03:51 PM
[2018-03-14] MEDS ORDERED: DONEPEZIL HCL 5 MG TAB PO SCH (21:00)
[2018-03-14] MEDS ORDERED: QUEtiapine FUMARATE 25 MG TAB PO SCH (21:00)
[2018-03-14] MEDS: SODIUM CHLORIDE 0.9% FLUSH 10 ML FLUSH IV FLUSH SCH (21:23)
[2018-03-15] VITALS: BP 172/72; PULSE 61; RESP 20; TEMP 96.2; O2SAT 97
[2018-03-15 04:00] VITALS: BP 167/75; PULSE 66; RESP 18; TEMP 96; O2SAT 98
[2018-03-15] MEDS: HEPARIN SODIUM - SQ 10,000 UNITS/ML VIAL SQ SCH ×2 (04:57→12:49)
[2018-03-15 08:52] VITALS: BP 151/68; PULSE 69; RESP 18; TEMP 96.5; O2SAT 100
[2018-03-15] MEDS ORDERED: MULTIVITAMINS/MINERALS THERAPEUTIC TAB PO SCH (09:00)
[2018-03-15] MEDS ORDERED: NON-FORMULARY DRUG (Cobalamine Combinations (Vitamin B12-Folic Acid) 1 TAB) PO SCH (09:00)
[2018-03-15] MEDS ORDERED: FERROUS SULFATE 325 MG (65 MG ELEMENTAL IRON) TAB PO SCH (09:00)
[2018-03-15] MEDS ORDERED: ASPIRIN 325 MG TAB PO SCH (09:00)
[2018-03-15] MEDS ORDERED: LOSARTAN 25 MG TAB PO SCH (09:00)
[2018-03-15] MEDS: SODIUM CHLORIDE 0.9% FLUSH 10 ML FLUSH IV FLUSH SCH (09:31)
[2018-03-15 10:12] LABS: CHOLESTEROL/ HDL RATIO 2.45 RATIO; HDL CHOLESTEROL 47.3 MG/DL (40.0-60.0)
--- NOTE | 2018-03-15 12:20 | HHI.PR ---
Subjective Remarks She seen today in follow-up for acute neurological issues which are resolved Objective Vitals Vital Signs Date Time Temp Pulse Resp B/P (MAP) Pulse Ox O2 Delivery O2 Flow Rate FiO2 03/15/18 08:52 96.5 69 18 151/68 (95) 100 03/15/18 04:00 96.0 66 18 167/75 (105) 98 03/15/18 00:00 96.2 61 20 172/72 (105) 97 03/14/18 21:00 59 03/14/18 20:03 95 21 03/14/18 20:00 96.0 58 20 181/78 (112) 100 03/14/18 16:00 97.8 56 22 166/74 (104) 100 I/O 03/14/18 03/14/18 03/14/18 03/15/18 03/15/18 03/15/18 07:00 15:00 23:00 07:00 15:00 23:00 Intake Total 120 ml 240 ml Output Total 600 ml 300 ml Balance -480 ml -60 ml Intake Oral 120 ml 240 ml Output Urine Total 600 ml 300 ml # Voids 3 # Bowel Movements 1 0 Result Diagram: 03/14/18 0948 03/14/18 0948 Objective Remarks GENERAL: This is a well-nourished, well-developed patient, in no apparent distress. CARDIOVASCULAR: Regular rate and rhythm without murmurs, gallops, or rubs. RESPIRATORY: Clear to auscultation. Breath sounds equal bilaterally. No wheezes , rales, or rhonchi. GASTROINTESTINAL: Abdomen soft, non-tender, nondistended. Normal active bowel sounds MUSCULOSKELETAL: Extremities without clubbing, cyanosis, or edema. NEURO: Alert & Oriented x4 at his baseline, moves all 4 extremities A/P Problem List: (1) Neurological symptoms ICD Code: R29.90 - Unspecified symptoms and signs involving the nervous system Plan: Symptoms improved Continue aspirin and home medication Blood pressures improved continue quetiapine and donepezil (2) Dementia ICD Code: F03.90 - Unspecified dementia without behavioral disturbance Plan: Continue home medications Stable Discharge Planning Likely discharge home pending echo and MRI results Kiley Orozco MD Mar 15, 2018 12:20
[2018-03-15 13:29] VITALS: BP 127/58; PULSE 63; RESP 16; TEMP 97; O2SAT 100
--- NOTE | 2018-03-15 14:18 | HHI.DCPOC ---
Discharge Care Plan Diagnosis: (1) Dementia (2) Neurological symptoms Goals to Promote Your Health * To prevent worsening of your condition and complications * To maintain your health at the optimal level Directions to Meet Your Goals Take your medications as prescribed Follow your dietary instruction Follow activity as directed Keep your appointments as scheduled Take your immunizations and boosters as scheduled If your symptoms worsen call your PCP, if no PCP go to Urgent Care Center or Emergency Room Smoking is Dangerous to Your Health. Avoid second hand smoke Call the 24-hour hour crisis hotline for domestic abuse at Kiley Orozco MD Mar 15, 2018 14:18
--- NOTE | 2018-03-15 14:20 | HHI.FF ---
Face to Face Verification Diagnosis: (1) Dementia (2) Neurological symptoms Physical Therapy Order: Evaluate and Treat, Improve ambulation Home Health Nursing Order: Medical education Signs/symptoms of disease process Nursing assessment with vital signs Senior Research Analyst Order: To Provide: Community services I have seen patient Del García on 03/15/18. My clinical findings support the need for the requested home health care services because: Ltd mobility - disease progression Med compliance is questionable Limited ability to care for self I certify that my clinical findings support that this patient is homebound because: Impaired cognitive ability/safety Unsteady gait/balance Kiley Orozco MD Mar 15, 2018 14:20
--- NOTE | 2018-03-15 14:35 | ECHRPT ---
Indication: CVA/TIA CONCLUSIONS The left ventricular systolic function is normal with an estimated ejection fraction in the range of 55-60%. Mild concentric left ventricular hypertrophy. Doppler parameters are consistent with impaired left ventricular relaxtion (grade 1 diastolic dysfun ction). Mild aortic valve regurgitation. There is mild tricuspid valve regurgitation. BP: 167 / 75 HR: 66 Rhythm: Sinus MEASUREMENTS (Male / Female) Normal Values Technical Quality:Fair 2D ECHO LV Diastolic Diameter PLAX 4.9 cm 4.2 - 5.9 / 3.9 - 5.3 cm LV Systolic Diameter PLAX 3.4 cm IVS Diastolic Thickness 1.1 cm 0.6 - 1.0 / 0.6 - 0.9 cm LVPW Diastolic Thickness 1.1 cm 0.6 - 1.0 / 0.6 - 0.9 cm LV Relative Wall Thickness 0.5 RV Internal Dim ED PLAX 1.6 cm LVOT Diameter 1.9 cm Aortic Root Diameter 3.0 cm DOPPLER AV Peak Velocity 196.0 cm/s AV Peak Gradient 15.4 mmHg AV Mean Gradient 7.0 mmHg AV Velocity Time Integral 32.3 cm AI Peak Velocity 388.0 cm/s AI Peak Gradient 60.2 mmHg AI Pressure Half Time 563.0 ms LVOT Peak Velocity 102.0 cm/s LVOT Peak Gradient 4.2 mmHg LVOT Velocity Time Integral 19.3 cm AV Area Cont Eq vti 1.7 cm AV Area Cont Eq pk 1.5 cm Mitral E Point Velocity 58.7 cm/s Mitral A Point Velocity 79.5 cm/s Mitral E to A Ratio 0.7 LV E' Lateral Velocity 4.7 cm/s Mitral E to LV E' Lateral Ratio 12.5 LV E' Septal Velocity 4.9 cm/s Mitral E to LV E' Septal Ratio 12.1 TR Peak Velocity 255.0 cm/s TR Peak Gradient 26.0 mmHg Right Atrial Pressure 10.0 mmHg Pulmonary Artery Systolic Pressu 36.0 mmHg Right Ventricular Systolic Press 36.0 mmHg FINDINGS LEFT VENTRICLE Normal left ventricular size. Mild concentric left ventricular hypertrophy. The left ventricular systolic function is normal with an estimated ejection fraction in the range of 55-60%. Doppler parameters are consistent with impaired left ventricular relaxtion (grade 1 diastolic dysfun ction). RIGHT VENTRICLE Normal right ventricular size and systolic function. LEFT ATRIUM The left atrial size is normal. RIGHT ATRIUM The right atrial size is normal. ATRIAL SEPTUM No atrial level shunt is demonstrated by color flow Doppler interrogation. AORTA The aortic root and proximal ascending aorta are not well visualized. MITRAL VALVE Structurally normal mitral valve. No mitral valve stenosis or regurgitation. AORTIC VALVE Trileaflet aortic valve. Mild aortic valve regurgitation. No aortic valve stenosis. TRICUSPID VALVE Grossly normal There is mild tricuspid valve regurgitation. The estimated pulmonary arterial pressure is 36 mmHg. PULMONARY VALVE The pulmonary valve is not well visualized. VESSELS The inferior vena cava is normal in size. PERICARDIUM No pericardial effusion. Tan Munoz DO (Electronically Signed) Final Date:15 March 2018 14:34
== END 2018-03-15 15:18 | disposition home or self-care (01) ==
LOC: PHED 09:39 → PHEDA 11:41 → PH3B 12:19
PROVIDERS: ADMIT Hospitalist; ATTEND Hospitalist
DX: F03.90 Unspecified dementia, unspecified severity, without behavioral disturbance, psychotic disturbance, mood disturbance, and anxiety (principal); R29.90 Unspecified symptoms and signs involving the nervous system; I65.23 Occlusion and stenosis of bilateral carotid arteries; I10 Essential (primary) hypertension; Z79.82 Long term (current) use of aspirin; Z66 Do not resuscitate
CPT/HCPCS: 70450; 70496; 70498; 70551; 80048; 80061; 80307; 81001; 82550; 82948; 83036; 84443; 84484; 85025; 85384; 85610; 85730; 86850; 86900; 86901; 93005; 93306; 93880; 96125; 96360; 96361; 96372; 97162; 97166; 99285; G0378; G8987; G8988; G8989; G9168; G9169; G9170; J1644; J7030; Q9967

== ENCOUNTER 2018-06-22 20:05 | Inpatient (IN) ==
--- NOTE | 2018-06-22 20:35 | ED ---
HPI General Chief Complaint: Psychiatric Symptoms Stated Complaint: Pysch Eval/[facility] Time Seen by Provider: 06/23/18 14:13 Source: patient, RN notes reviewed and police Mode of arrival: other (police) Limitations: other (dementia) History of Present Illness HPI Narrative: 88-year-old male the presents to the ED for evaluation of Ngo act. Patient was Ngo acted by police secondary to apparently making suicidal statements. Patient has a history of Alzheimer's and apparently going argument with family. Patient apparently left the home and when police arrived he stated that he was going to walk into traffic. Per patient he is not homicidal or suicidal. Patient himself is a very poor historian and cannot really get much history from him. No family at bedside to provide any information. Patient was brought here by police for evaluation of Ngo act and psychiatric evaluation. Patient does appear to have some skin tears to the right arm. Patient denies any chest pain or shortness of breath. No other medical issues reported at this time. Related Data Previous Rx's Medication Instructions Recorded nitrofurantoin monohyd/m-cryst 100 mg PO BID 5 Days #10 cap 06/22/18 [Macrobid] Allergies Allergy/AdvReac Type Severity Reaction Status Date / Time lisinopril Allergy Severe tounge Verified 06/22/18 20:19 swelling Review of Systems ROS Unobtainable ROS Unobtainable: unobtainable due to mental status [facility] Medical History Medical History Alzheimer disease (Acute) Social History Social History Substance History: Unable to Obtain Smoking Status: Cognitive impairment How Often Do You Have a Drink Containing Alcohol: Unable to Obtain Recent Travel in [facility] within the Last 8 Weeks: No Recent Out of Country Travel within the Last 8 Weeks: No Immunization History Tetanus Immunization: Unable to Assess Hx Influenza Vaccine This Season: Unable to Assess Exam Narrative Exam Narrative: GENERAL: Well appearing SKIN: Focused skin assessment warm/dry. HEAD: Atraumatic. Normocephalic. EYES: Pupils equal and round. No scleral icterus. No injection or drainage. ENT: No nasal bleeding or discharge. Mucous membranes pink and moist. NECK: Trachea midline. No JVD. CARDIOVASCULAR: Regular rate and rhythm. No murmur appreciated. RESPIRATORY: No accessory muscle use. Clear to auscultation. Breath sounds equal bilaterally. GASTROINTESTINAL: Abdomen soft, non-tender, nondistended. Hepatic and splenic margins not palpable. MUSCULOSKELETAL: No obvious deformities. No clubbing. No cyanosis. No edema. Full range of motion of the upper and lower extremities bilaterally. Patient does have some skin tears to the right arm that appeared to be old. Not actively bleeding. NEUROLOGICAL: Awake and alert. No obvious cranial nerve deficits. Motor grossly within normal limits. Normal speech. PSYCHIATRIC: Demented mood and affect; insight and judgment very minimal. Course Initial Documented Vital Signs Temperature 98.4 F 06/22/18 20:14 Pulse Rate 102 H 06/22/18 20:14 Respiratory Rate 20 06/22/18 20:14 Blood Pressure 104/61 06/22/18 20:14 Pulse Oximetry 96 06/22/18 20:14 Last Documented Vital Signs Temperature 98.6 F 06/23/18 07:29 Pulse Rate 61 06/23/18 12:58 Respiratory Rate 16 06/23/18 12:58 Blood Pressure 143/65 H 06/23/18 12:58 Pulse Oximetry 99 06/23/18 12:58 Medical Decision Making LALO Attestation LALO supervised visit: Yes Attestation: I, Dr. Escalona, have reviewed the advance practice practitioner's documentation and am in agreement, met with the patient face to face, made the diagnosis, and the medical decision making was done by me. *My assessment and Findings: Patient seen and examined by me at 1450, Ngo acted been lifted by Elsy KARIMI. Patient has no medical complaints on my history that warrant further workup. The patient is alert and awake and oriented however does have some minor confusion. He states he is trying to buy house but is broke. He states that his 2 nephews he has been living with, he states he has been trying to get out of that living situation. He states he has a couple of fishing buddies he might be able to go stay with. Nursing is attempted to call his 2 nephews with no response, we have asked case management consult to determine a safe discharge for this patient. MDM Narrative Medical decision making narrative: 88-year-old male the presents to the ED for evaluation of Ngo act. Patient was properly examined and was found to have signs and symptoms consistent with appears to be likely dementia. Labs and imagings were ordered. Labs and imaging showed no sign of acute disease. Patient was medically cleared. Okay to be seen by psych. Mental health screening was discussed with the patient. Medical Screen Exam Complete: Yes Emergency Medical Condition: Yes Differential Diagnosis Differential Diagnosis: Alzheimer's disease versus altered mental status versus dementia versus UTI versus suicidal ideation Medical Records Medical records reviewed: Yes I reviewed the patient's medical records. Lab Data Result diagrams: 06/22/18 20:20 06/22/18 20:20 Lab Results 06/22/18 06/22/18 06/22/18 Range/Units 20:20 20:20 22:35 WBC 10.2 (4.0-11.0) th/mm3 RBC 4.25 L (4.50-5.90) mil/mm3 Hgb 12.6 L (13.0-17.0) gm/dL Hct 36.6 L (39.0-51.0) % MCV 86.2 (80.0-100.0) fL MCH 29.7 (27.0-34.0) pg MCHC 34.5 (32.0-36.0) % RDW 14.4 (11.6-17.2) % Plt Count 201 (150-450) th/mm3 MPV 8.6 (7.0-11.0) fL Neut % (Auto) 87.7 H (16.0-70.0) % Lymph % (Auto) 8.1 L (9.0-44.0) % [place] % (Auto) 3.6 (0.0-8.0) % Eos % (Auto) 0.3 (0.0-4.0) % Baso % (Auto) 0.3 (0.0-2.0) % Neut # (Auto) 9.0 H (1.8-7.7) th/mm3 Lymph # (Auto) 0.8 L (1.0-4.8) th/mm3 [place] # (Auto) 0.4 (0.0-0.9) th/mm3 Eos # (Auto) 0.0 (0.0-0.4) th/mm3 Baso # (Auto) 0.0 (0.0-0.2) th/mm3 WBC Differential . Differential Comment Auto diff final Sodium 139 (136-145) meq/L Potassium 3.9 (3.5-5.1) meq/L Chloride 105 (98-107) meq/L Carbon Dioxide 23.7 (21.0-32.0) meq/L Anion Gap 10 (5-15) meq/L BUN 28 H (7-18) mg/dL Creatinine 1.63 H (0.60-1.30) mg/dL Estimated GFR 40 L (>89) mL/min Random Glucose 192 H (74-106) mg/dL Calcium 8.7 (8.5-10.1) mg/dL Total Bilirubin 0.6 (0.2-1.0) mg/dL AST 14 L (15-37) U/L ALT 17 (12-78) U/L Alkaline Phosphatase 56 (45-117) U/L Total Protein 8.0 (6.4-8.2) g/dL Albumin 3.9 (3.4-5.0) g/dL TSH 1.780 (0.358-3.740) uIU/mL Urine Color (Yellw/Straw) Urine Clarity (Clear) Urine pH (5.0-8.5) Ur Specific [place] (1.002-1.035) Urine Protein (Neg-Trace) mg/dL Urine Glucose (UA) (Negative) mg/dL Urine Ketones (Negative) mg/dL Urine Occult Blood (Negative) Urine Nitrate (Negative) Urine Bilirubin (Negative) Urine Urobilinogen (Less than 2) mg/dL Ur Leukocyte Esterase (Negative) Urine RBC (0-3) /hpf Urine WBC (0-5) /hpf Ur Squamous Epith Cells (0-5) /hpf Urine Bacteria (None) /hpf Hyaline Casts (0-3) /lpf Urine Mucus (Occasional) /lpf Micro UA Comment Ur Microscopic Review Urine Culture Comments Urine Opiates Screen Neg (Neg) Ur Barbiturates Screen Neg (Neg) Ur Amphetamines Screen Neg (Neg) U Benzodiazepines Scrn Neg (Neg) Urine Cocaine Screen Neg (Neg) U Cannabinoids Screen Neg (Neg) Serum Alcohol Less than 3 (0-5) mg/dL 06/22/18 Range/Units 22:35 WBC (4.0-11.0) th/mm3 RBC (4.50-5.90) mil/mm3 Hgb (13.0-17.0) gm/dL Hct (39.0-51.0) % MCV (80.0-100.0) fL MCH (27.0-34.0) pg MCHC (32.0-36.0) % RDW (11.6-17.2) % Plt Count (150-450) th/mm3 MPV (7.0-11.0) fL Neut % (Auto) (16.0-70.0) % Lymph % (Auto) (9.0-44.0) % [place] % (Auto) (0.0-8.0) % Eos % (Auto) (0.0-4.0) % Baso % (Auto) (0.0-2.0) % Neut # (Auto) (1.8-7.7) th/mm3 Lymph # (Auto) (1.0-4.8) th/mm3 [place] # (Auto) (0.0-0.9) th/mm3 Eos # (Auto) (0.0-0.4) th/mm3 Baso # (Auto) (0.0-0.2) th/mm3 WBC Differential Differential Comment Sodium (136-145) meq/L Potassium (3.5-5.1) meq/L Chloride (98-107) meq/L Carbon Dioxide (21.0-32.0) meq/L Anion Gap (5-15) meq/L BUN (7-18) mg/dL Creatinine (0.60-1.30) mg/dL Estimated GFR (>89) mL/min Random Glucose (74-106) mg/dL Calcium (8.5-10.1) mg/dL Total Bilirubin (0.2-1.0) mg/dL AST (15-37) U/L ALT (12-78) U/L Alkaline Phosphatase (45-117) U/L Total Protein (6.4-8.2) g/dL Albumin (3.4-5.0) g/dL TSH (0.358-3.740) uIU/mL Urine Color Yellow (Yellw/Straw) Urine Clarity Hazy H (Clear) Urine pH 5.0 (5.0-8.5) Ur Specific [place] 1.020 (1.002-1.035) Urine Protein 30 H (Neg-Trace) mg/dL Urine Glucose (UA) Negative (Negative) mg/dL Urine Ketones Negative (Negative) mg/dL Urine Occult Blood Large H (Negative) Urine Nitrate Negative (Negative) Urine Bilirubin Negative (Negative) Urine Urobilinogen 2.0 H (Less than 2) mg/dL Ur Leukocyte Esterase Negative (Negative) Urine RBC 154 H (0-3) /hpf Urine WBC 3 (0-5) /hpf Ur Squamous Epith Cells <1 (0-5) /hpf Urine Bacteria Few H (None) /hpf Hyaline Casts 1 (0-3) /lpf Urine Mucus Few H (Occasional) /lpf Micro UA Comment Culture not ind Ur Microscopic Review Not Reportable Urine Culture Comments Culture not ind Urine Opiates Screen (Neg) Ur Barbiturates Screen (Neg) Ur Amphetamines Screen (Neg) U Benzodiazepines Scrn (Neg) Urine Cocaine Screen (Neg) U Cannabinoids Screen (Neg) Serum Alcohol (0-5) mg/dL Imaging Data Radiologist's impression: Head CT 06/22/18 20:28 CONCLUSION: 1. No acute intracranial abnormalities. . Discharge Plan Discharge Disposition Patient Disposition: 01 Discharge Home Discharge Condition Condition: Stable Discharge Details Diagnosis: Dementia, UTI (urinary tract infection) Physicians Team ED Provider: Del Escalona ED Midlevel Provider: Erick Rodriguez Primary Care Provider: UNKNOWN, Rxs /Orders / Referrals /Forms Prescriptions: New nitrofurantoin monohyd/m-cryst [Macrobid] 100 mg capsule 100 mg PO BID 5 Days Qty: 10 RF: 0 Discharge Instructions Patient Printed Instructions: Urinary Tract Infection in Men (ED) Status ED Status: Medically Cleared
[2018-06-22 21:00] LABS: Baso % (Auto) 0.3 % (0.0-2.0); Eos % (Auto) 0.3 % (0.0-4.0); Hematocrit 36.6 % (39.0-51.0); Hemoglobin 12.6 gm/dL (13.0-17.0); Lymph # (Auto) 0.8 th/mm3 (1.0-4.8); Lymph % (Auto) 8.1 % (9.0-44.0); Mean Corpuscular HGB Conc 34.5 % (32.0-36.0); Mean Corpuscular Hemoglobin 29.7 pg (27.0-34.0); Mean Corpuscular Volume 86.2 fL (80.0-100.0); Mean Platelet Volume 8.6 fL (7.0-11.0); Mono # (Auto) 0.4 th/mm3 (0.0-0.9); Mono % (Auto) 3.6 % (0.0-8.0); Neut % (Auto) 87.7 % (16.0-70.0); Platelet Count 201 th/mm3 (150-450); Red Blood Count 4.25 mil/mm3 (4.50-5.90); Red Cell Distribution Width 14.4 % (11.6-17.2); White Blood Count 10.2 th/mm3 (4.0-11.0)
[2018-06-22 21:16] LABS: Albumin 3.9 g/dL (3.4-5.0); Anion Gap 10 meq/L (5-15); Aspartate Aminotransferase 14 U/L (15-37); Blood Urea Nitrogen 28 mg/dL (7-18); Calcium 8.7 mg/dL (8.5-10.1); Carbon Dioxide 23.7 meq/L (21.0-32.0); Chloride 105 meq/L (98-107); Glomerular Filtration Rate 40 mL/min (>89); Glucose,Random 192 mg/dL (74-106); Potassium 3.9 meq/L (3.5-5.1); Sodium 139 meq/L (136-145)
[2018-06-22 21:17] LABS: Alanine Aminotransferase 17 U/L (12-78)
[2018-06-22 21:27] LABS: Alkaline Phosphatase 56 U/L (45-117)
--- NOTE | 2018-06-22 21:30 | CT ---
EXAM DATE: 06/22/2018 9:16 PM EDT AGE/SEX: 88 years / Male INDICATIONS: Altered mental status, patient stated that he wanted to walk into traffic. CLINICAL DATA: This is the patient's initial encounter. Patient reports that signs and symptoms have been present for 1 day and indicates a pain score of 0/10. MEDICAL/SURGICAL HISTORY: Alzheimer's disease. None. RADIATION DOSE: 56.35 CTDI (mGy) COMPARISON: [facility], CT BRAIN W/O CONTRAST, 03/14/2018. . TECHNIQUE: CT of the head without contrast. Using automated exposure control and adjustment of the mA and/or kV according to patient size, radiation dose was kept as low as reasonably achievable to ob tain optimal diagnostic quality images. DICOM format image data is available electronically for revi ew and comparison. FINDINGS: Cerebrum: The ventricles are normal for age. No evidence of midline shift, mass lesion, hemorrhage or acute infarction. No extraaxial fluid collections are seen. Posterior Fossa: The cerebellum and brainstem are intact. The 4th ventricle is midline. The cerebe llopontine angle is unremarkable. Extracranial: The visualized portion of the orbits is intact. Skull: The calvaria is intact. No evidence of skull fracture. CONCLUSION: 1. No acute intracranial abnormalities. . Electronically signed by: Odell Banks MD 06/22/2018 9:28 PM EDT
[2018-06-22 23:00] LABS: Bacteria,Urine Few /hpf; Bilirubin,Urine Negative (Negative); Clarity,Urine Hazy (Clear); Color,Urine Yellow (Yellw/Straw); Glucose,Urine (UA) Negative (Negative); Hyaline Casts,Urine 1 /lpf (0-3); Leukocyte Esterase,Urine Negative (Negative); Mucus,Urine Few /lpf (Occasional); Nitrite,Urine Negative (Negative); Squamous Epithelial Cell,Urine <1 /hpf (0-5)
[2018-06-22 23:01] LABS: Amphetamine Screen,Urine Neg (Neg); Barbiturate Screen,Urine Neg (Neg); Cannabinoid Screen,Urine Neg (Neg); Cocaine Screen,Urine Neg (Neg)
[2018-06-22 23:06] LABS: Opiate Screen,Urine Neg (Neg)
[2018-06-23] MEDS: Nitrofurantoin Monohydrate-Macrocrystal 100 MG Capsule PO SCH ×3 (00:16→19:24)
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
[2018-06-24] MEDS ORDERED: Bisacodyl 10 MG Supp RECTAL PRN (02:12)
--- NOTE | 2018-06-24 02:21 | P.HPIM ---
History of Present Illness Primary Care Physician: UNKNOWN History of Present Illness: This is an 88-year-old male with PMH of Alzheimer's Dementia was originally brought to the ER under [place] by Police secondary to suicidal ideation. Unable to obtain much history from patient, per report pt had argued w/ family members and left the house, found wandering into traffic by police. S/p eval by Psychiatry, not noted to be suicidal/homicidal and BA lifted. Pt attempted to be discharged, however family not willing to take patient back despite being informed by Officer that DCF would be called. Unable to obtain placement at this time, pending DCF evaluation in the next 24hrs. Of note, pt found to have UTI, started on Macrobid bid. - Diagnosis (1) Dementia (2) UTI (urinary tract infection) Review of Systems PAST FAMILY HISTORY: Unknown unobtainable due to mental status PMFSH - Medical History Medical History: Medical History (Last Reviewed 06/22/18 @ 20:34 by SANTOSH Barrientos) Alzheimer disease - Tobacco History Smoking Status: Cognitive impairment - Alcohol History How Often Do You Have a Drink Containing Alcohol: Unable to Obtain - Substance Use History Substance History: Unable to Obtain - Travel History Recent Travel in the USA Within the Last 8 Weeks: No Recent Travel Out of the Country Within the Last 8 Weeks: No - Immunization History Tetanus Immunization: Unable to Assess Hx Influenza Vaccine This Season: Unable to Assess Medications and Allergies Active Medications: Active Medications Al Hydroxide/Mg Hydroxide (Milk Of Magnesia Liq) 30 ml PO Q12H PRN PRN Reason: Mild Constipation Bisacodyl (Dulcolax Supp) 10 mg RECTAL DAILY PRN PRN Reason: SEVERE CONSITIPATION Lactulose (Lactulose Liq) 30 ml PO DAILY PRN PRN Reason: SEVERE CONSITIPATION Nitrofurantoin Macrocrystals (Macrobid) 100 mg PO BIDPC [facility]HA Last Admin: 06/23/18 19:24 Dose: 100 mg Senna/Docusate Sodium (Jenn-Colace) 1 tab PO BID [facility] Sennosides (Senokot) 17.2 mg PO Q12H PRN PRN Reason: Moderate Constipation Allergies Allergy/AdvReac Type Severity Reaction Status Date / Time lisinopril Allergy Severe tounge Verified 06/22/18 20:19 swelling Exam Vital signs: Vital Signs 06/23/18 07:29 06/23/18 12:58 06/23/18 19:15 Temperature 98.6 F Pulse Rate 62 61 75 Respiratory Rate 17 16 17 Blood Pressure 189/69 H 143/65 H 149/67 H Pulse Oximetry 99 99 99 Intake & Output 06/23/18 06/23/18 06/24/18 06:59 18:59 06:59 Weight 68.039 kg Narrative: PE: GENERAL: Elderly white male in no acute distress resting,. SKIN: Focused skin assessment warm and dry. HEENT: PERRLA, EOMI. No scleral icterus or conjunctival pallor. No lid lag or facial droop. CARDIOVASCULAR: Regular rate and rhythm. No obvious murmurs to auscultation. No chest tenderness to palpation. RESPIRATORY: No obvious rhonchi or wheezing. Clear to auscultation. Breath sounds equal bilaterally. GASTROINTESTINAL: Abdomen soft, non-tender, nondistended. BS normal. MUSCULOSKELETAL: Extremities without clubbing, cyanosis, or edema. No obvious deformities. NEUROLOGICAL: Awake, alert. No focal neurologic deficits. Moving both upper and lower extremities spontaneously. PSYCHIATRIC: Appropriate mood and affect. Insight and judgment normal. Results - Labs CBC & Chem 7: 06/22/18 20:20 06/22/18 20:20 Caprini VTE Risk Assessment Caprini VTE Risk Assessment: No/Low Risk (score <= 1) Caprini Risk Assessment Model: Point Value = 1 Point Value = 2 Point Value = 3 Point Value = 5 Age 41-60 Minor surgery BMI > 25 kg/m2 Swollen legs Varicose veins or History of unexplained or recurrent spontaneous Oral contraceptives or hormone replacement Sepsis (< 1 month) Serious lung disease, including pneumonia (< 1 month) Abnormal pulmonary function Acute myocardial infarction Congestive heart failure (< 1 month) History of inflammatory bowel disease Medical patient at bed rest Age 61-74 Arthroscopic surgery Major open surgery (> 45 min) Laparoscopic surgery (> 45 min) Malignancy Confined to bed (> 72 hours) Immobilizing plaster cast Central venous access Age >= 75 History of VTE Family history of VTE Factor V Leiden Prothrombin [id number] Lupus anticoagulant Anticardiolipin antibodies Elevated serum homocysteine Heparin-induced thrombocytopenia Other congenital or acquired thrombophilia Stroke (< 1 month) Elective arthroplasty Hip, pelvis, or leg fracture Acute spinal cord injury (< 1 month) Prophylaxis Regimen: Total Risk Factor Score Risk Level Prophylaxis Regimen 0-1 Low Early ambulation 2 Moderate Order ONE of the following: *Sequential Compression Device (SCD) *Heparin 5000 units SQ BID 3-4 Higher Order ONE of the following medications: *Heparin 5000 units SQ TID *Enoxaparin/Lovenox 40 mg SQ daily (WT < 150 kg, CrCl > 30 mL/min) *Enoxaparin/Lovenox 30 mg SQ daily (WT < 150 kg, CrCl > 10-29 mL/min) *Enoxaparin/Lovenox 30 mg SQ BID (WT < 150 kg, CrCl > 30 mL/min) AND/OR *Sequential Compression Device (SCD) 5 or more Highest Order ONE of the following medications: *Heparin 5000 units SQ TID (Preferred with Epidurals) *Enoxaparin/Lovenox 40 mg SQ daily (WT < 150 kg, CrCl > 30 mL/min) *Enoxaparin/Lovenox 30 mg SQ daily (WT < 150 kg, CrCl > 10-29 mL/min) *Enoxaparin/Lovenox 30 mg SQ BID (WT < 150 kg, CrCl > 30 mL/min) AND *Sequential Compression Device (SCD) Assessment and Plan - Assessment (1) Dementia Code(s): F03.90 - Unspecified dementia without behavioral disturbance Status: Acute (2) UTI (urinary tract infection) Code(s): N39.0 - Urinary tract infection, site not specified Status: Acute - Plan A/P: 1. Dementia: h/o Alzheimer's Dementia, brought in by Police under BA for suicidal ideation after being found wandering in the street. S/p eval by [facility] , pt not suicidal/homicidal, BA lifted. Family contacted at time of discharge, however per report family not willing to take pt back, DCF involved, pending eval in the next 24hrs. Will admit as Bedded Outpatient. 2. UTI: U/a w/ UTI, started on Macrobid bid, will continue. 3. DVT Prophylaxis: SCD/Teds 4. Social work for assistance w/ discharge 5. Case discussed at length w/ ER staff/Case Management, labs/records reviewed by me (1) Dementia Qualifiers: Dementia type: Alzheimer's disease Alzheimer's disease onset: late-onset Dementia behavioral disturbance: with behavioral disturbance Qualified Code(s) : G30.1 - Alzheimer's disease with late onset; F02.81 - Dementia in other diseases classified elsewhere with behavioral disturbance
--- NOTE | 2018-06-24 07:43 | P.PN ---
Subjective Interval history: Patient doing well overnight. Patient reports that he is tolerating p.o. and voiding without difficulty. Per nursing, no overnight events. Patient states that he is ready to be discharged from the ER however that he does not know where he is going to go, as he does not remember where he lives. Physical Exam Vital signs: Vital Signs 06/23/18 12:58 06/23/18 19:15 06/24/18 04:00 Temperature 97.5 F L Pulse Rate 61 75 57 L Respiratory Rate 16 17 18 Blood Pressure 143/65 H 149/67 H 180/71 H Pulse Oximetry 99 99 99 Intake & Output 06/23/18 06/24/18 06/24/18 18:59 06:59 18:59 Intake Total 0 / 0 Balance 0 / 0 Intake: Oral 0 / 0 Other: # Voids 0 Date of Last Bowel Movement 06/23/18 Narrative: GENERAL: thin male, in NAD, lying comfortably in bed, AAOx2 SKIN: Warm and dry. HEAD: Normocephalic. EYES: No scleral icterus. No injection or drainage. NECK: Supple, trachea midline. No JVD or lymphadenopathy. CARDIOVASCULAR: Regular rate and rhythm without murmurs, gallops, or rubs. RESPIRATORY: Breath sounds equal bilaterally. No accessory muscle use. GASTROINTESTINAL: Abdomen soft, non-tender, nondistended. MUSCULOSKELETAL: No cyanosis, or edema. BACK: Nontender without obvious deformity. No CVA tenderness. - Urinary Catheter Management Straight Cath placed during this visit: yes, but has since been removed by the nurse Reason for continuing: Not indwelling catheter Insertion date: 06/22/18 Insertion time: 22:42 Removal date: 06/22/18 Removal time: 22:43 Results - Labs CBC & Chem 7: 06/22/18 20:20 06/24/18 09:30 Assessment and Plan - Assessment (1) Dementia Code(s): F03.90 - Unspecified dementia without behavioral disturbance Status: Chronic (2) UTI (urinary tract infection) Code(s): N39.0 - Urinary tract infection, site not specified Status: Acute - Plan 88 y/o CM with PMHx of Dementia admitted for IP mgmt of KELESY and UTI, initially brought in by Police under BA for suicidal ideation after being found wandering in the street. s/p eval by [facility], pt not suicidal/homicidal, BA lifted. Family contacted at time of discharge, however per report family not willing to take pt back, DCF involved, HD#1 1. UTI: Dx via UA Started on Macrobid PO BID F/U Urine Cx 2. Dementia: at basline per family, increased confusion due to UTI on admission Cleared by Psych Not on meds 3. KELSEY/Dehydration: improved with PO hydration Creatinine 1.40 today, 1.63 on admission Starting IVF F/U in AM, avoid nephortoxic meds 4. DVT Prophylaxis: SCD/Teds 5. Case mgmt consult for assistance w/ discharge 6. Dispo: F/U urine cx and creatinine in AM, pending placement Code Status: full Discussed Condition With: patient and RN (1) Dementia Qualifiers: Dementia type: Alzheimer's disease Alzheimer's disease onset: late-onset Dementia behavioral disturbance: with behavioral disturbance Qualified Code(s) : G30.1 - Alzheimer's disease with late onset; F02.81 - Dementia in other diseases classified elsewhere with behavioral disturbance
[2018-06-24] MEDS: Senna/Docusate Sodium 8.6/50 MG Tablet PO SCH ×2 (10:25→21:36)
[2018-06-24] MEDS: Nitrofurantoin Monohydrate-Macrocrystal 100 MG Capsule PO SCH ×2 (10:36→18:05)
[2018-06-24 11:06] LABS: Carbon Dioxide 27.7 meq/L (21.0-32.0); Potassium 4.2 meq/L (3.5-5.1)
--- NOTE | 2018-06-24 16:14 | P.CONPSY ---
Provisional Diagnosis Admission Date: June 24, 2018 00:59 [place] I.: Dementia [place] III.: Urinary tract infection History of Present Illness Service: Psychiatry Reason for Consult: dementia Primary Care Provider: UNKNOWN Chief Complaint: "I'm very happy" History of Present Illness: Pt is an 88 YOWM with a hx of dementia who was admitted to [facility] observation unit for UTI. Pt was originally brought to [facility] under a BA after he left home and allegedly made statements of wanting to harm self. He was seen by psych service yesterday, he did not meet criteria for BA and BA was lifted. Chart reviewed by author. Family is refusing to take pt home and DCF has been contacted by primary team. Pt is very friendly and affable. He states that he is happy to be at the hospital "taking care of whatever the problems are." He states that he was experiencing discomfort with using the bathroom but feels better today. He cannot recall the name of the president but states, "I know that I don't like him and what he is doing. But if I met him I'd probably say "pleased to meet you " to be polite." He states that his memory is poor and he takes medication for it. He denies SI/HI and states that "you don't have to worry about that. I'm a big chicken and I don't like pain!" He states that he thinks he did elope from his home but he gets confused. He states that the staff has been very kind to him and he appreciates care. I spoke with RN who reports that pt has been calm without agitation and has not expressed any SI/HI. He denies psychosis and does not appear to be internally stimulated or preoccupied. He reports that it is june, but does not know year. He does know that he is "at the hospital in [facility]". Review of Systems Psychiatric: Reports confusion PMFSH - History History Provided By: Patient, Medical Record - Medical History Medical History: Medical History (Last Reviewed 06/24/18 @ 16:09 by Rachel Guillaume MD) Alzheimer disease - Tobacco History Second Hand Smoke Exposure: No Tobacco Use In Past 30 Days: No Smoking Status: Never smoker - Alcohol History How Often Do You Have a Drink Containing Alcohol: Never - Substance Use History Substance History: No History of Abuse - Travel History Recent Travel in the [place] Within the Last 8 Weeks: No Recent Travel Out of the Country Within the Last 8 Weeks: No - Immunization History Tetanus Immunization: Unable to Assess Hx Influenza Vaccine This Season: Unable to Assess Medications and Allergies Active Medications: Active Medications Al Hydroxide/Mg Hydroxide (Milk Of Magnesia Liq) 30 ml PO Q12H PRN PRN Reason: Mild Constipation Bisacodyl (Dulcolax Supp) 10 mg RECTAL DAILY PRN PRN Reason: SEVERE CONSITIPATION Lactulose (Lactulose Liq) 30 ml PO DAILY PRN PRN Reason: SEVERE CONSITIPATION Nitrofurantoin [facility]rocrystals [facility]bid) [facility] Last Admin: 06/24/18 10:36 Dose: 100 mg Senna/Docusate Sodium (Jenn-Colace) 1 tab PO BID [facility] Last Admin: 06/24/18 10:25 Dose: Not Given Sennosides (Senokot) 17.2 mg PO Q12H PRN PRN Reason: Moderate Constipation Allergies Allergy/AdvReac Type Severity Reaction Status Date / Time lisinopril Allergy Severe tounge Verified 06/22/18 20:19 swelling Exam Vital signs: Vital Signs 06/23/18 19:15 06/24/18 04:00 06/24/18 11:36 Temperature 97.5 F L 97.7 F Pulse Rate 75 57 L 76 Respiratory Rate 17 18 16 Blood Pressure 149/67 H 180/71 H 107/63 Pulse Oximetry 99 99 98 Intake & Output 06/23/18 06/24/18 06/24/18 18:59 06:59 18:59 Intake Total 0 / 0 Balance 0 / 0 Intake: Oral 0 / 0 Other: # Voids 0 Date of Last Bowel Movement 06/23/18 Mental Status Examination Appearance: Appropriate Consciousness: Alert Orientation: Person, Place, Date/Time (Partial) Speech: Unremarkable Language: Adequate Fund of Knowledge: Adequate Attention and Concentration: Inadequate Memory: Impaired Mood: Appropriate Affect: Appropriate ("happy"), Euthymic Thought Process & Associations: Intact, Logical Thought Content: Appropriate Hallucination Type: None Delusion Type: None Suicidal Ideation: No Suicidal Plan: No Suicidal Intention: No Homicidal Ideation: No Homicidal Plan: No Homicidal Intention: No Insight: Poor Judgment: Poor Assessment and Plan - Assessment (1) Dementia Code(s): F03.90 - Unspecified dementia without behavioral disturbance Status: Acute - Plan Plan: Estimated LOS: [] days Presenting behavioral changes most likely due to UTI, which is being treated by primary team. Pt does not meet criteria for inpatient psychiatric admission at this time. He does not meet criteria for BA which was dismissed. Justification for Continued Inpatient Stay: medial care by primary team (1) Dementia Qualifiers: Dementia type: Alzheimer's disease Alzheimer's disease onset: late-onset Dementia behavioral disturbance: with behavioral disturbance Qualified Code(s) : G30.1 - Alzheimer's disease with late onset; F02.81 - Dementia in other diseases classified elsewhere with behavioral disturbance
[2018-06-24] MEDS ORDERED: amLODIPine 5 MG Tablet PO SCH (17:30)
[2018-06-24] MEDS: Sod Chloride 0.9% Inj 1,000 ML IV.CONT SCH ×2 (18:04→21:37)
[2018-06-25] MEDS: Sod Chloride 0.9% Inj 1,000 ML IV.CONT SCH ×2 (03:00)
[2018-06-25 06:07] LABS: Hematocrit 35.3 % (39.0-51.0); Hemoglobin 11.8 gm/dL (13.0-17.0); Mean Corpuscular HGB Conc 33.4 % (32.0-36.0); Mean Corpuscular Hemoglobin 29.4 pg (27.0-34.0); Mean Platelet Volume 8.8 fL (7.0-11.0); Platelet Count 180 th/mm3 (150-450); Red Blood Count 4.02 mil/mm3 (4.50-5.90); Red Cell Distribution Width 14.8 % (11.6-17.2); White Blood Count 6.4 th/mm3 (4.0-11.0)
[2018-06-25 06:21] LABS: Alanine Aminotransferase 16 U/L (12-78); Albumin 3.7 g/dL (3.4-5.0); Anion Gap 11 meq/L (5-15); Aspartate Aminotransferase 15 U/L (15-37); Blood Urea Nitrogen 25 mg/dL (7-18); Calcium 8.4 mg/dL (8.5-10.1); Carbon Dioxide 27.4 meq/L (21.0-32.0); Chloride 106 meq/L (98-107); Glomerular Filtration Rate 52 mL/min (>89); Glucose,Random 87 mg/dL (74-106); Potassium 4.1 meq/L (3.5-5.1); Sodium 144 meq/L (136-145)
[2018-06-25 06:24] LABS: Alkaline Phosphatase 54 U/L (45-117); Total Protein 7.9 g/dL (6.4-8.2)
--- NOTE | 2018-06-25 07:51 | P.PN ---
Subjective Interval history: Patient doing well overnight, tolerating PO and voiding/stooling without difficulty. Per RN patient fell overnight coming out of bed and hit his L elbow , no head trauma. Patient reports pain is minimal and he desires D/C home. Physical Exam Vital signs: Vital Signs 06/24/18 11:36 06/24/18 16:00 06/24/18 17:20 Temperature 97.7 F Pulse Rate 76 72 Respiratory Rate 16 18 Blood Pressure 107/63 181/80 H 168/63 H Pulse Oximetry 98 97 6 L 06/24/18 20:00 06/24/18 23:56 06/25/18 01:57 Temperature 98.3 F 98.0 F 98.7 F Pulse Rate 72 78 84 Respiratory Rate 18 19 18 Blood Pressure 171/77 H 164/76 H 150/74 H Pulse Oximetry 100 99 99 06/25/18 04:00 Temperature 98.2 F Pulse Rate 54 L Respiratory Rate 17 Blood Pressure 120/78 Pulse Oximetry 96 Intake & Output 06/24/18 06/25/18 06/25/18 18:59 06:59 18:59 Intake Total 800 / 800 Balance 800 / 800 Intake: Oral 800 / 800 Narrative: GENERAL: thin male, in NAD, lying comfortably in bed, AAOx2 SKIN: Warm and dry. HEAD: Normocephalic. EYES: No scleral icterus. No injection or drainage. NECK: Supple, trachea midline. No JVD or lymphadenopathy. CARDIOVASCULAR: Regular rate and rhythm without murmurs, gallops, or rubs. RESPIRATORY: Breath sounds equal bilaterally. No accessory muscle use. GASTROINTESTINAL: Abdomen soft, non-tender, nondistended. MUSCULOSKELETAL: No cyanosis, or edema. BACK: Nontender without obvious deformity. No CVA tenderness. - Urinary Catheter Management Straight Cath placed during this visit: yes, but has since been removed by the nurse Reason for continuing: Not indwelling catheter Insertion date: 06/22/18 Insertion time: 22:42 Removal date: 06/22/18 Removal time: 22:43 Results - Labs CBC & Chem 7: 06/25/18 05:00 06/25/18 05:00 Laboratory Results - last 24 hr 06/24/18 06/25/18 06/25/18 09:30 01:29 05:00 WBC 6.4 RBC 4.02 L Hgb 11.8 L Hct 35.3 L MCV 88.0 MCH 29.4 MCHC 33.4 RDW 14.8 Plt Count 180 MPV 8.8 Sodium 142 Potassium 4.2 Chloride 104 Carbon Dioxide 27.7 Anion Gap 10 BUN 30 H Creatinine 1.55 H Estimated GFR 43 L POC Glucose 105 Random Glucose 115 H Calcium 9.0 Total Bilirubin AST ALT Alkaline Phosphatase Total Protein Albumin 06/25/18 05:00 WBC RBC Hgb Hct MCV MCH MCHC RDW Plt Count MPV Sodium 144 Potassium 4.1 Chloride 106 Carbon Dioxide 27.4 Anion Gap 11 BUN 25 H Creatinine 1.31 H Estimated GFR 52 L POC Glucose Random Glucose 87 Calcium 8.4 L Total Bilirubin 0.3 AST 15 ALT 16 Alkaline Phosphatase 54 Total Protein 7.9 Albumin 3.7 Assessment and Plan - Assessment (1) Dementia Code(s): F03.90 - Unspecified dementia without behavioral disturbance Status: Chronic (2) UTI (urinary tract infection) Code(s): N39.0 - Urinary tract infection, site not specified Status: Acute - Plan 88 y/o CM with PMHx of Dementia admitted for IP mgmt of KELSEY and UTI, initially brought in by Police under BA for suicidal ideation after being found wandering in the street. [facility] not suicidal/homicidal, BA lifted. Family contacted at time of discharge, however per report family not willing to take pt back, DCF involved, HD#2 1. UTI: Dx via UA Started on Macrobid PO BID F/U Urine Cx- still not resulted 2. Dementia: at basline per family, increased confusion due to UTI on admission Cleared by Psych- per their note behavioral changes most likely due to UTI Not on meds 3. KELSEY/Dehydration: improved with PO hydration Creatinine 1.31 from 1.40, 1.63 on admission (per EMR review 1.30 is baseline) s/p IVF F/U in AM, avoid nephrotoxic meds 4. HTN: not well controlled overnight, started on Norvasc 5mg QD on 06/24, will increase to 10mg today. 5. DVT Prophylaxis: SCD/Teds 6. Case mgmt consult for assistance w/ discharge 7. Dispo: Pending placement Code Status: full Discussed Condition With: RN and patient (1) Dementia Qualifiers: Dementia type: Alzheimer's disease Alzheimer's disease onset: late-onset Dementia behavioral disturbance: with behavioral disturbance Qualified Code(s) : G30.1 - Alzheimer's disease with late onset; F02.81 - Dementia in other diseases classified elsewhere with behavioral disturbance
[2018-06-25] MEDS: Nitrofurantoin Monohydrate-Macrocrystal 100 MG Capsule PO SCH ×2 (11:20→17:39)
[2018-06-25] MEDS: amLODIPine 10 MG Tablet PO SCH (11:20)
[2018-06-25] MEDS: Senna/Docusate Sodium 8.6/50 MG Tablet PO SCH ×2 (11:20→20:36)
[2018-06-26 07:22] LABS: Baso % (Auto) 0.6 % (0.0-2.0); Eos # (Auto) 0.1 th/mm3 (0.0-0.4); Eos % (Auto) 1.9 % (0.0-4.0); Hematocrit 35.2 % (39.0-51.0); Lymph # (Auto) 1.5 th/mm3 (1.0-4.8); Lymph % (Auto) 20.5 % (9.0-44.0); Mean Corpuscular HGB Conc 34.2 % (32.0-36.0); Mean Corpuscular Hemoglobin 29.6 pg (27.0-34.0); Mean Corpuscular Volume 86.3 fL (80.0-100.0); Mean Platelet Volume 8.9 fL (7.0-11.0); Mono # (Auto) 0.6 th/mm3 (0.0-0.9); Mono % (Auto) 8.5 % (0.0-8.0); Neut % (Auto) 68.5 % (16.0-70.0); Platelet Count 189 th/mm3 (150-450); Red Blood Count 4.07 mil/mm3 (4.50-5.90); Red Cell Distribution Width 15.2 % (11.6-17.2); White Blood Count 7.3 th/mm3 (4.0-11.0)
--- NOTE | 2018-06-26 07:41 | P.PN ---
Subjective Interval history: Patient doing well, tolerating PO, voiding/stooling without difficulty. Patient states he wants to eat breakfast and that he is ready to go home. His left elbow is not causing him pain, no further falls. No overnight events per RN. Physical Exam Vital signs: Vital Signs 06/25/18 07:49 06/25/18 11:57 06/25/18 16:00 Temperature 97.8 F 97.8 F 97.5 F L Pulse Rate 66 77 68 Respiratory Rate 16 16 12 Blood Pressure 138/75 170/76 H 140/65 Pulse Oximetry 99 100 100 06/25/18 20:00 06/25/18 23:37 06/26/18 03:56 Temperature 98.3 F 97.8 F Pulse Rate 72 77 68 Respiratory Rate 21 21 21 Blood Pressure 117/70 129/68 131/66 Pulse Oximetry 98 97 96 Intake & Output 06/25/18 06/26/18 06/26/18 18:59 06:59 18:59 Output Total 300 / 300 300 / 300 Balance -300 / -300 -300 / -300 Weight 59.9 kg Output: Urine 300 / 300 300 / 300 Other: # Voids 2 Narrative: GENERAL: thin male, in NAD, lying comfortably in bed, AAOx2 SKIN: Warm and dry. HEAD: Normocephalic. EYES: No scleral icterus. No injection or drainage. NECK: Supple, trachea midline. No JVD or lymphadenopathy. CARDIOVASCULAR: Regular rate and rhythm without murmurs, gallops, or rubs. RESPIRATORY: Breath sounds equal bilaterally. No accessory muscle use. GASTROINTESTINAL: Abdomen soft, non-tender, nondistended. MUSCULOSKELETAL: No cyanosis, or edema. L elbow abrasion with bandage in place, no active bleeding. BACK: Nontender without obvious deformity. No CVA tenderness. - Urinary Catheter Management Straight Cath placed during this visit: yes, but has since been removed by the nurse Reason for continuing: Not indwelling catheter Insertion date: 06/22/18 Insertion time: 22:42 Removal date: 06/22/18 Removal time: 22:43 Results - Labs CBC & Chem 7: 06/26/18 06:20 06/26/18 06:20 Laboratory Results - last 24 hr 06/26/18 06:20 WBC 7.3 RBC 4.07 L Hgb 12.0 L Hct 35.2 L MCV 86.3 MCH 29.6 MCHC 34.2 RDW 15.2 Plt Count 189 MPV 8.9 Neut % (Auto) 68.5 Lymph % (Auto) 20.5 Storey % (Auto) 8.5 H Eos % (Auto) 1.9 Baso % (Auto) 0.6 Neut # (Auto) 5.0 Lymph # (Auto) 1.5 [place] # (Auto) 0.6 Eos # (Auto) 0.1 Baso # (Auto) 0.0 WBC Differential . Differential Comment Auto diff final Assessment and Plan - Assessment (1) Dementia Code(s): F03.90 - Unspecified dementia without behavioral disturbance Status: Chronic (2) UTI (urinary tract infection) Code(s): N39.0 - Urinary tract infection, site not specified Status: Acute - Plan 88 y/o CM with PMHx of Dementia admitted for IP mgmt of KELSEY and UTI, initially brought in by Police under BA for suicidal ideation after being found wandering in the street. s/p eval by [facility], pt not suicidal/homicidal, BA lifted. Family contacted at time of discharge, however per report family not willing to take pt back, DCF involved, HD#3 1. UTI: Dx via UA Started on Macrobid PO BID on 06/22, cont. x7days F/U Urine Cx- still not resulted 2. Dementia: at basline per family, increased confusion due to UTI on admission Cleared by Psych- per their note behavioral changes most likely due to UTI Not on meds 3. KELSEY/Dehydration: improved with PO hydration Creatinine 1.22 today from 1.31 yesterday (1.63 on admission, per EMR review 1.30 is baseline) s/p IVF Avoid nephrotoxic meds 4. HTN: improved, asymptomatic, started on Norvasc 10mg QD on 06/25 5. DVT Prophylaxis: SCD/Teds 6. Case mgmt consult for assistance w/ discharge 7. Dispo: [place] ([facility]) Code Status: full Discussed Condition With: patient, CM (1) Dementia Qualifiers: Dementia type: Alzheimer's disease Alzheimer's disease onset: late-onset Dementia behavioral disturbance: with behavioral disturbance Qualified Code(s) : G30.1 - Alzheimer's disease with late onset; F02.81 - Dementia in other diseases classified elsewhere with behavioral disturbance
[2018-06-26 07:51] LABS: Albumin 3.7 g/dL (3.4-5.0); Anion Gap 8 meq/L (5-15); Aspartate Aminotransferase 11 U/L (15-37); Blood Urea Nitrogen 27 mg/dL (7-18); Calcium 8.8 mg/dL (8.5-10.1); Carbon Dioxide 29.5 meq/L (21.0-32.0); Chloride 106 meq/L (98-107); Glomerular Filtration Rate 56 mL/min (>89); Glucose,Random 90 mg/dL (74-106); Potassium 3.9 meq/L (3.5-5.1); Sodium 143 meq/L (136-145)
[2018-06-26 07:54] LABS: Alanine Aminotransferase 19 U/L (12-78); Alkaline Phosphatase 54 U/L (45-117); Total Protein 7.8 g/dL (6.4-8.2)
[2018-06-26] MEDS: Nitrofurantoin Monohydrate-Macrocrystal 100 MG Capsule PO SCH ×2 (10:17→18:29)
[2018-06-26] MEDS: Senna/Docusate Sodium 8.6/50 MG Tablet PO SCH ×2 (10:17→21:03)
[2018-06-26] MEDS: amLODIPine 10 MG Tablet PO SCH (10:17)
--- NOTE | 2018-06-26 17:56 | XR ---
EXAM DATE: 06/26/2018 12:00 AM EDT AGE/SEX: 88 years / Male INDICATIONS: Right arm pain. CLINICAL DATA: This is the patient's initial encounter. Patient reports that signs and symptoms have been present for 2 days and indicates a pain score of 5/10. MEDICAL/SURGICAL HISTORY: Alzheimer's disease. None. COMPARISON: No prior exams available for comparison. FINDINGS: Bony structures are intact and in normal alignment. Osseous density is normal. Soft tissues are unre markable. No radiopaque foreign bodies seen. CONCLUSION: No acute bony abnormality. Electronically signed by: Odell Banks MD 06/26/2018 5:54 PM EDT
--- NOTE | 2018-06-26 17:57 | XR ---
EXAM DATE: 06/26/2018 12:00 AM EDT AGE/SEX: 88 years / Male INDICATIONS: Lower back pain. CLINICAL DATA: This is the patient's initial encounter. Patient reports that signs and symptoms have been present for > 1 year and indicates a pain score of 5/10. MEDICAL/SURGICAL HISTORY: Alzheimer's disease. None. COMPARISON: No prior exams available for comparison. FINDINGS: Advanced degenerative disc disease. Mild levoscoliosis. No acute fracture. Minimal degenerative anter olisthesis of L 2 on L3 and retrolisthesis of L1 on L2. CONCLUSION: Advanced degenerative disc disease with minimal degenerative listhesis as above. No acute fracture. M ild scoliosis. Electronically signed by: Odell Banks MD 06/26/2018 5:55 PM EDT
--- NOTE | 2018-06-26 17:58 | XR ---
EXAM DATE: 06/26/2018 12:00 AM EDT AGE/SEX: 88 years / Male INDICATIONS: Upper back pain. CLINICAL DATA: This is the patient's initial encounter. Patient reports that signs and symptoms have been present for > 1 year and indicates a pain score of 5/10. MEDICAL/SURGICAL HISTORY: Alzheimer's disease. None. COMPARISON: No prior exams available for comparison. FINDINGS: Moderate to advanced degenerative disc disease. Mild scoliosis. No significant paravertebral soft tis thomas swelling. No acute fracture. 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 Electronically signed by: Odell Banks MD 06/26/2018 5:56 PM EDT
[2018-06-27 05:44] LABS: Alanine Aminotransferase 19 U/L (12-78); Albumin 3.5 g/dL (3.4-5.0); Anion Gap 10 meq/L (5-15); Aspartate Aminotransferase 17 U/L (15-37); Blood Urea Nitrogen 32 mg/dL (7-18); Calcium 8.4 mg/dL (8.5-10.1); Carbon Dioxide 24.8 meq/L (21.0-32.0); Chloride 107 meq/L (98-107); Glomerular Filtration Rate 57 mL/min (>89); Glucose,Random 86 mg/dL (74-106); Potassium 4.2 meq/L (3.5-5.1); Sodium 142 meq/L (136-145)
[2018-06-27 05:46] LABS: Alkaline Phosphatase 54 U/L (45-117); Total Protein 7.7 g/dL (6.4-8.2)
[2018-06-27 05:57] LABS: Hematocrit 36.4 % (39.0-51.0); Hemoglobin 12.2 gm/dL (13.0-17.0); Mean Corpuscular HGB Conc 33.7 % (32.0-36.0); Mean Corpuscular Volume 89.3 fL (80.0-100.0); Mean Platelet Volume 9.1 fL (7.0-11.0); Platelet Count 184 th/mm3 (150-450); Red Blood Count 4.08 mil/mm3 (4.50-5.90); White Blood Count 7.7 th/mm3 (4.0-11.0)
--- NOTE | 2018-06-27 09:28 | P.PN ---
Subjective Interval history: Patient doing well overnight, reports that he feels that he is ready to go home. Patient is F/V/S well. No current concerns. Physical Exam Vital signs: Vital Signs 06/26/18 12:00 06/26/18 13:30 06/26/18 13:36 Temperature 97.4 F L 97.4 F L 97.4 F L Pulse Rate 76 69 69 Respiratory Rate 16 16 16 Blood Pressure 140/70 150/67 H 150/67 H Pulse Oximetry 99 96 96 06/26/18 15:03 06/26/18 16:00 06/26/18 16:03 Temperature 97.4 F L 97.4 F L 97.4 F L Pulse Rate 93 H 93 H 93 H Respiratory Rate 16 16 16 Blood Pressure 126/76 126/76 126/76 Pulse Oximetry 97 97 06/27/18 00:00 06/27/18 07:27 06/27/18 08:38 Temperature 97.6 F 98.2 F Pulse Rate 74 80 75 Respiratory Rate 17 18 20 Blood Pressure 170/75 H 161/77 H 135/63 Pulse Oximetry 98 99 97 Intake & Output 06/26/18 06/27/18 06/27/18 18:59 06:59 18:59 Weight 59.874 kg Other: # Voids 1 6 Narrative: GENERAL: thin male, in NAD, lying comfortably in bed, AAOx2 SKIN: Warm and dry. HEAD: Normocephalic. EYES: No scleral icterus. No injection or drainage. NECK: Supple, trachea midline. No JVD or lymphadenopathy. CARDIOVASCULAR: Regular rate and rhythm without murmurs, gallops, or rubs. RESPIRATORY: Breath sounds equal bilaterally. No accessory muscle use. GASTROINTESTINAL: Abdomen soft, non-tender, nondistended. MUSCULOSKELETAL: No cyanosis, or edema. L elbow abrasion with bandage in place, no active bleeding. BACK: Nontender without obvious deformity. No CVA tenderness. - Urinary Catheter Management Straight Cath placed during this visit: yes, but has since been removed by the nurse Reason for continuing: Not indwelling catheter Insertion date: 06/22/18 Insertion time: 22:42 Removal date: 06/22/18 Removal time: 22:43 Results - Labs CBC & Chem 7: 06/27/18 03:30 06/27/18 03:30 Laboratory Results - last 24 hr 06/27/18 06/27/18 03:30 03:30 WBC 7.7 RBC 4.08 L Hgb 12.2 L Hct 36.4 L MCV 89.3 MCH 30.0 MCHC 33.7 RDW 15.0 Plt Count 184 MPV 9.1 Sodium 142 Potassium 4.2 Chloride 107 Carbon Dioxide 24.8 Anion Gap 10 BUN 32 H Creatinine 1.21 Estimated GFR 57 L Random Glucose 86 Calcium 8.4 L Total Bilirubin 0.3 AST 17 ALT 19 Alkaline Phosphatase 54 Total Protein 7.7 Albumin 3.5 Microbiology 06/25/18 17:45 Random Urine Urine Culture - Final 10-50,000 cfu/mL mixed gram positive mila (probable contaminants) - Imaging Impressions Forearm X-Ray 06/26/18 00:00 CONCLUSION: No acute bony abnormality. Lumbar Spine X-Ray 06/26/18 00:00 CONCLUSION: Advanced degenerative disc disease with minimal degenerative listhesis as above. No acute fracture. Mild scoliosis. Thoracic Spine X-Ray 06/26/18 00:00 CONCLUSION: Moderate to advanced degenerative disc disease with mild kyphoscoliosis. Assessment and Plan - Assessment (1) Dementia Code(s): F03.90 - Unspecified dementia without behavioral disturbance Status: Chronic (2) UTI (urinary tract infection) Code(s): N39.0 - Urinary tract infection, site not specified Status: Acute - Plan 88 y/o CM with PMHx of Dementia admitted for IP mgmt of KELSEY and UTI, initially brought in by Police under BA for suicidal ideation after being found wandering in the street. [facility], pt not suicidal/homicidal, BA lifted. Family contacted at time of discharge, however per report family not willing to take pt back, DCF involved, HD#4 1. UTI: Dx via UA Started on Macrobid PO BID on 06/22, cont. x7days F/U Urine Cx- NG@24hrs (obtained after starting ABX x24hrs) 2. Dementia: at basline per family, increased confusion due to UTI on admission now resolved Cleared by Psych- per their note behavioral changes most likely due to UTI Not on meds 3. KELSEY/Dehydration: improved with PO hydration Creatinine 1.21 today (1.63 on admission, per EMR review 1.30 is baseline) s/p IVF Avoid nephrotoxic meds 4. HTN: improved, asymptomatic, started on Norvasc 10mg QD on 06/25 and Metoprolol 12.5mg BID on 06/26 5. DVT Prophylaxis: SCD/Teds 6. Case mgmt consult for assistance w/ discharge 7. s/p fall on 06/26 Back exam WNL Thoracic/Lumbar XR with no acute findings 8. [facility]: [facility] [place] Code Status: full Discussed Condition With: patient, RN, (1) Dementia Qualifiers: Dementia type: Alzheimer's disease Alzheimer's disease onset: late-onset Dementia behavioral disturbance: with behavioral disturbance Qualified Code(s) : G30.1 - Alzheimer's disease with late onset; F02.81 - Dementia in other diseases classified elsewhere with behavioral disturbance
[2018-06-27] MEDS: Nitrofurantoin Monohydrate-Macrocrystal 100 MG Capsule PO SCH ×2 (10:47→18:25)
[2018-06-27] MEDS: Senna/Docusate Sodium 8.6/50 MG Tablet PO SCH ×2 (10:47→22:12)
[2018-06-27] MEDS: Metoprolol Tartrate 25 MG Tablet PO SCH ×2 (10:47→20:17)
[2018-06-27] MEDS: amLODIPine 10 MG Tablet PO SCH (10:47)
[2018-06-28 05:23] LABS: Hematocrit 37.5 % (39.0-51.0); Hemoglobin 12.6 gm/dL (13.0-17.0); Mean Corpuscular HGB Conc 33.5 % (32.0-36.0); Mean Corpuscular Hemoglobin 29.7 pg (27.0-34.0); Mean Corpuscular Volume 88.5 fL (80.0-100.0); Mean Platelet Volume 8.5 fL (7.0-11.0); Platelet Count 193 th/mm3 (150-450); Red Blood Count 4.23 mil/mm3 (4.50-5.90); White Blood Count 6.9 th/mm3 (4.0-11.0)
[2018-06-28 05:46] LABS: Calcium 8.9 mg/dL (8.5-10.1); Carbon Dioxide 31.4 meq/L (21.0-32.0); Potassium 3.8 meq/L (3.5-5.1)
--- NOTE | 2018-06-28 07:18 | P.PN ---
Subjective Interval history: Patient doing well overnight. Patient is tolerating p.o., and voiding/stooling with no difficulties. Patient desires to be discharged home. Physical Exam Vital signs: Vital Signs 06/27/18 07:27 06/27/18 12:45 06/27/18 16:21 Temperature 97.6 F 98.0 F 97.5 F L Pulse Rate 80 68 73 Respiratory Rate 18 16 18 Blood Pressure 161/77 H 173/80 H 88/53 L Pulse Oximetry 99 98 100 06/27/18 16:39 06/27/18 19:31 06/27/18 23:49 Temperature 97.7 F 97.8 F Pulse Rate 64 62 Respiratory Rate 17 17 Blood Pressure 122/82 159/71 H 149/69 H Pulse Oximetry 94 L 98 Intake & Output 06/27/18 06/28/18 06/28/18 18:59 06:59 18:59 Other: Date of Last Bowel Movement 06/27/18 06/27/18 Narrative: GENERAL: thin male, in NAD, lying comfortably in bed, AAOx2, wearing a diaper (he removed his gown) SKIN: Warm and dry. HEAD: Normocephalic. EYES: No scleral icterus. No injection or drainage. NECK: Supple, trachea midline. No JVD or lymphadenopathy. CARDIOVASCULAR: Regular rate and rhythm without murmurs, gallops, or rubs. RESPIRATORY: Breath sounds equal bilaterally. No accessory muscle use. GASTROINTESTINAL: Abdomen soft, non-tender, nondistended. MUSCULOSKELETAL: No cyanosis, or edema. L elbow abrasion with bandage in place, no active bleeding. BACK: Nontender without obvious deformity. No CVA tenderness. - Urinary Catheter Management Straight Cath placed during this visit: yes, but has since been removed by the nurse Reason for continuing: Not indwelling catheter Insertion date: 06/22/18 Insertion time: 22:42 Removal date: 06/22/18 Removal time: 22:43 Results - Labs CBC & Chem 7: 06/28/18 04:22 06/28/18 04:22 Laboratory Results - last 24 hr 06/28/18 06/28/18 04:22 04:22 WBC 6.9 RBC 4.23 L Hgb 12.6 L Hct 37.5 L MCV 88.5 MCH 29.7 MCHC 33.5 RDW 15.0 Plt Count 193 MPV 8.5 Sodium 139 Potassium 3.8 Chloride 103 Carbon Dioxide 31.4 Anion Gap 5 BUN 33 H Creatinine 1.22 Estimated GFR 56 L Random Glucose 91 Calcium 8.9 Microbiology 06/25/18 17:45 Random Urine Urine Culture - Final 10-50,000 cfu/mL mixed gram positive mila (probable contaminants) Assessment and Plan - Assessment (1) Dementia Code(s): F03.90 - Unspecified dementia without behavioral disturbance Status: Chronic (2) UTI (urinary tract infection) Code(s): N39.0 - Urinary tract infection, site not specified Status: Acute - Plan 88 y/o CM with PMHx of Dementia admitted for IP mgmt of KELSEY and UTI, initially brought in by Police under BA for suicidal ideation after being found wandering in the street. s/p eval by Pscy, pt not suicidal/homicidal, BA lifted. Family contacted at time of discharge, however per report family not willing to take pt back, DCF involved, HD#5 1. UTI: Dx via UA Started on Macrobid PO BID on 06/22, cont. x7days, stop on 06/29 Urine Cx- Gram+ mila (obtained after starting ABX x24hrs) 2. Dementia: at basline per family, increased confusion due to UTI on admission now resolved Cleared by Psych- per their note behavioral changes most likely due to UTI Not on meds 3. KELSEY/Dehydration: improved with PO hydration Creatinine 1.22 today (1.63 on admission, per EMR review 1.30 is baseline) s/p IVF Avoid nephrotoxic meds 4. HTN: improved, asymptomatic, started on Norvasc 10mg QD on 06/25 and Metoprolol 12.5mg BID on 06/26 5. DVT Prophylaxis: SCD/Teds 6. Case mgmt consult for assistance w/ discharge 7. s/p fall on 06/26 Back exam WNL Thoracic/Lumbar XR with no acute findings 8. Dispo: [facility]) Code Status: full Discussed Condition With: patient, RN, CM (1) Dementia Qualifiers: Dementia type: Alzheimer's disease Alzheimer's disease onset: late-onset Dementia behavioral disturbance: with behavioral disturbance Qualified Code(s) : G30.1 - Alzheimer's disease with late onset; F02.81 - Dementia in other diseases classified elsewhere with behavioral disturbance
[2018-06-28] MEDS: Senna/Docusate Sodium 8.6/50 MG Tablet PO SCH ×2 (09:47→21:45)
[2018-06-28] MEDS: Nitrofurantoin Monohydrate-Macrocrystal 100 MG Capsule PO SCH ×2 (09:47→18:40)
[2018-06-28] MEDS: Metoprolol Tartrate 25 MG Tablet PO SCH ×2 (09:47→20:57)
[2018-06-28] MEDS: amLODIPine 10 MG Tablet PO SCH (09:47)
--- NOTE | 2018-06-29 07:53 | P.PN ---
Subjective Interval history: Patient doing well overnight, tolerating PO and voiding/stooling without difficulty. Per Nursing patient is pleasant and has not been aggressive. No overnight events or nursing concerns. Physical Exam Vital signs: Vital Signs 06/28/18 09:22 06/28/18 11:43 06/28/18 15:10 Temperature 97.6 F 97.5 F L 98.6 F Pulse Rate 64 72 87 Respiratory Rate 16 18 18 Blood Pressure 154/66 H 196/87 H 170/77 H Pulse Oximetry 99 94 L 99 06/28/18 20:00 06/28/18 23:43 06/29/18 03:50 Temperature 98.5 F 98.0 F 97.7 F Pulse Rate 85 89 101 H Respiratory Rate 16 20 20 Blood Pressure 183/86 H 163/72 H 171/74 H Pulse Oximetry 96 99 90 L Intake & Output 06/28/18 06/29/18 06/29/18 18:59 06:59 18:59 Intake Total 240 / 240 Balance 240 / 240 Weight 59.874 kg Intake: Oral 240 / 240 Other: # Voids 2 # Urine Diapers 3 Date of Last Bowel Movement 06/28/18 06/28/18 Weight On Admission 59.874 kg Narrative: GENERAL: thin male, in NAD, lying comfortably in bed, AAOx2 SKIN: Warm and dry. HEAD: Normocephalic. EYES: No scleral icterus. No injection or drainage. NECK: Supple, trachea midline. No JVD or lymphadenopathy. CARDIOVASCULAR: Regular rate and rhythm without murmurs, gallops, or rubs. RESPIRATORY: Breath sounds equal bilaterally. No accessory muscle use. GASTROINTESTINAL: Abdomen soft, non-tender, nondistended. MUSCULOSKELETAL: No cyanosis, or edema. L elbow abrasion with bandage in place, no active bleeding. BACK: Nontender without obvious deformity. No CVA tenderness. - Urinary Catheter Management Straight Cath placed during this visit: yes, but has since been removed by the nurse Reason for continuing: Not indwelling catheter Insertion date: 06/22/18 Insertion time: 22:42 Removal date: 06/22/18 Removal time: 22:43 Results - Labs CBC & Chem 7: 06/28/18 04:22 06/28/18 04:22 Assessment and Plan - Assessment (1) Dementia Code(s): F03.90 - Unspecified dementia without behavioral disturbance Status: Chronic (2) UTI (urinary tract infection) Code(s): N39.0 - Urinary tract infection, site not specified Status: Acute - Plan 88 y/o CM with PMHx of Dementia admitted for IP mgmt of KELSEY and UTI, initially brought in by Police under BA for suicidal ideation after being found wandering in the street. [facility], pt not suicidal/homicidal, BA lifted. Family contacted at time of discharge, however per report family not willing to take pt back, DCF involved, HD#6 1. UTI: Dx via UA s/p Macrobid x7days, stopped on 06/29 Urine Cx- Gram+ mila (obtained after starting ABX x24hrs) 2. Dementia: at basline per family, increased confusion due to UTI on admission now resolved Cleared by Psych- per their note behavioral changes most likely due to UTI Not on meds 3. KELSEY/Dehydration: improved with PO hydration Creatinine 1.22 today (1.63 on admission, per EMR review 1.30 is baseline) s/p IVF Avoid nephrotoxic meds 4. HTN: elevated, asymptomatic, started on Norvasc 10mg QD on 06/25 and Metoprolol increased today to 25mg BID on 06/29 5. DVT Prophylaxis: SCD/Teds 6. Case mgmt consult for assistance w/ discharge 7. s/p fall on 06/26 Back exam WNL Thoracic/Lumbar XR with no acute findings 8. Anemia Hgb 12.6, at baseline Cont. Ferroous sulfate 9. [facility]po: [facility] [place]) Code Status: full Discussed Condition With: patient, RN, CM (1) Dementia Qualifiers: Dementia type: Alzheimer's disease Alzheimer's disease onset: late-onset Dementia behavioral disturbance: with behavioral disturbance Qualified Code(s) : G30.1 - Alzheimer's disease with late onset; F02.81 - Dementia in other diseases classified elsewhere with behavioral disturbance
[2018-06-29] MEDS: amLODIPine 10 MG Tablet PO SCH (08:23)
[2018-06-29] MEDS: Metoprolol Tartrate 25 MG Tablet PO SCH ×2 (08:23→21:32)
[2018-06-29] MEDS: Senna/Docusate Sodium 8.6/50 MG Tablet PO SCH ×2 (08:23→21:28)
[2018-06-29] MEDS: Ferrous Sulfate 325 MG Tablet PO SCH ×2 (12:22→17:02)
[2018-06-30 06:49] LABS: Baso % (Auto) 0.1 % (0.0-2.0); Hematocrit 34.7 % (39.0-51.0); Hemoglobin 11.8 gm/dL (13.0-17.0); Lymph # (Auto) 0.6 th/mm3 (1.0-4.8); Lymph % (Auto) 4.3 % (9.0-44.0); Mean Corpuscular Hemoglobin 29.4 pg (27.0-34.0); Mean Corpuscular Volume 86.4 fL (80.0-100.0); Mean Platelet Volume 8.8 fL (7.0-11.0); Mono # (Auto) 1.3 th/mm3 (0.0-0.9); Mono % (Auto) 8.7 % (0.0-8.0); Neut # (Auto) 12.8 th/mm3 (1.8-7.7); Neut % (Auto) 86.9 % (16.0-70.0); Platelet Count 160 th/mm3 (150-450); Red Blood Count 4.01 mil/mm3 (4.50-5.90); Red Cell Distribution Width 15.4 % (11.6-17.2); White Blood Count 14.7 th/mm3 (4.0-11.0)
[2018-06-30 07:06] LABS: Calcium 9.1 mg/dL (8.5-10.1); Carbon Dioxide 24.6 meq/L (21.0-32.0); Potassium 4.3 meq/L (3.5-5.1)
[2018-06-30] MEDS ORDERED: Levofloxacin 500 mg Premix Inj 500 MG/100 ML PIGGYBACK IV.SIG ONE (08:26)
--- NOTE | 2018-06-30 08:50 | XR ---
EXAM DATE: 06/30/2018 12:00 AM EDT AGE/SEX: 88 years / Male INDICATIONS: Cough CLINICAL DATA: This is the patient's initial encounter. Patient reports that signs and symptoms have been present for 1 day and indicates a pain score of Nonresponsive. MEDICAL/SURGICAL HISTORY: Hypertension. None. COMPARISON: [facility], CT PULMONARY ANGIOGRAM, 03/01/2018. [facility], CHEST SINGLE AP, 03/01/2018. . FINDINGS: Portable AP view of the chest demonstrates a normal-sized cardiac silhouette and stable appearance of the mediastinum. Lungs are underinflated but no effusion, consolidation, or pneumothorax is identifi ed. The bones and soft tissues demonstrate no acute abnormality. There is colon beneath the right hem idiaphragm. CONCLUSION: No acute cardiopulmonary abnormality is identified. Electronically signed by: Skyler Kwok MD 06/30/2018 8:49 AM EDT
[2018-06-30 09:33] LABS: Bilirubin,Urine Negative (Negative); Clarity,Urine Hazy (Clear); Color,Urine Yellow (Yellw/Straw); Glucose,Urine (UA) Negative (Negative); Leukocyte Esterase,Urine Negative (Negative); Mucus,Urine Few /lpf (Occasional); Nitrite,Urine Negative (Negative); Specific Gravity,Urine 1.015 (1.002-1.035)
--- NOTE | 2018-06-30 09:41 | P.PN ---
Subjective Interval history: Follow-up for social placement, Alzheimer's dementia, acute kidney injury, leukocytosis. Patient was a social admit. However today's labs show significant increase in white blood cell count, increase in creatinine. Patient 's mentation has changed as well per nursing staff. He is in bed but appears to be uncomfortable. He appears to be encephalopathic as well. No fever documented. Given the acute changes in his labs and mental status, will admit patient as full admission. Physical Exam Vital signs: Vital Signs 06/29/18 12:00 06/29/18 16:00 06/29/18 20:00 Temperature 98.2 F 97.5 F L 98.3 F Pulse Rate 73 71 65 Respiratory Rate 16 16 20 Blood Pressure 113/76 153/68 H 165/73 H Pulse Oximetry 100 98 95 06/30/18 00:00 06/30/18 04:00 06/30/18 08:00 Temperature 98.1 F 98.3 F 98.9 F Pulse Rate 78 80 73 Respiratory Rate 20 20 16 Blood Pressure 137/77 140/64 135/60 Pulse Oximetry 95 94 L 97 Intake & Output 06/29/18 06/30/18 06/30/18 18:59 06:59 18:59 Other: Date of Last Bowel Movement 06/28/18 Narrative: GENERAL: Alert, in mild distress. Not able to verbalize any complaints. SKIN: Warm and dry. HEAD: Normocephalic. EYES: No scleral icterus. No injection or drainage. NECK: Supple, trachea midline. No JVD or lymphadenopathy. CARDIOVASCULAR: Regular rate and rhythm without murmurs, gallops, or rubs. RESPIRATORY: Breath sounds equal bilaterally. No accessory muscle use. GASTROINTESTINAL: Abdomen soft, tenderness noted in the lower abdomen, nondistended. MUSCULOSKELETAL: No cyanosis, or edema. BACK: Nontender without obvious deformity. No CVA tenderness. - Urinary Catheter Management Straight Cath placed during this visit: yes, but has since been removed by the nurse Reason for continuing: Acute urinary retention Insertion date: 06/30/18 Insertion time: 09:03 Removal date: 06/22/18 Removal time: 22:43 Results - Labs CBC & Chem 7: 06/30/18 06:25 06/30/18 06:25 Laboratory Results - last 24 hr 06/30/18 06/30/18 06:25 06:25 WBC 14.7 H RBC 4.01 L Hgb 11.8 L Hct 34.7 L MCV 86.4 MCH 29.4 MCHC 34.0 RDW 15.4 Plt Count 160 MPV 8.8 Neut % (Auto) 86.9 H Lymph % (Auto) 4.3 L Osborne % (Auto) 8.7 H Eos % (Auto) 0.0 Baso % (Auto) 0.1 Neut # (Auto) 12.8 H Lymph # (Auto) 0.6 L Osborne # (Auto) 1.3 H Eos # (Auto) 0.0 Baso # (Auto) 0.0 WBC Differential . Differential Comment Auto diff final Sodium 141 Potassium 4.3 Chloride 104 Carbon Dioxide 24.6 Anion Gap 12 BUN 78 H Creatinine 4.00 H Estimated GFR 14 L Random Glucose 126 H Calcium 9.1 - Imaging Impressions Chest X-Ray 06/30/18 00:00 CONCLUSION: No acute cardiopulmonary abnormality is identified. - Procedures Garza Catheter placed on 06/30/2018. Assessment and Plan - Assessment (1) Dementia Code(s): F03.90 - Unspecified dementia without behavioral disturbance Status: Chronic (2) UTI (urinary tract infection) Code(s): N39.0 - Urinary tract infection, site not specified Status: Acute (3) PEDRO PABLO (acute kidney injury) Code(s): N17.9 - Acute kidney failure, unspecified Status: Acute - Plan This is an 88-year-old male with PMH of Alzheimer's Dementia was originally brought to the ER under [place] by Police secondary to suicidal ideation. Unable to obtain much history from patient, per report pt had argued w/ family members and left the house, found wandering into traffic by police. S/p eval by Psychiatry, not noted to be suicidal/homicidal and BA lifted. Pt attempted to be discharged, however family not willing to take patient back despite being informed by Officer that DCF would be called. Patient was subsequently admitted as 'bedded outpatient'. Patient was being treated for UTI with Macrobid and treatment finished on 06/29/2018. On 06/30/2018, he was found to have significant decline in mental status, increased WBC and increased Creatinine. Acute metabolic encephalopathy Hx of Alzheimer's dementia -Likely due to Urinary tract infection and urinary retention -Will consult Palliative care. Per previous notes, DCF is already involved. -Possibly due to uremia as well. Leukocytosis Possible UTI -Patient WBC count went from 6.9 --> 14.7. -We will start patient empirically on ceftriaxone 2 g daily and Levaquin 500 mg once. -We will repeat urinalysis, lactic acid level -Chest x-ray was unremarkable. If UTI suggested by urinalysis, will decrease ceftriaxone to 1 g daily. Acute kidney injury Urinary retention -Creatinine was 1.22 on 06/28/2018. This morning creatinine is 4.0. BUN jumped from 33-78. -Creatinine elevation is likely due to urinary retention. -Place a Garza catheter. Will consult nephrology. I discussed with painting technician national sales manager. Hypertension Continue amlodipine 10 mg, metoprolol 25 mg twice daily. Full code. SCDs. (1) Dementia Qualifiers: Dementia type: Alzheimer's disease Alzheimer's disease onset: late-onset Dementia behavioral disturbance: with behavioral disturbance Qualified Code(s) : G30.1 - Alzheimer's disease with late onset; F02.81 - Dementia in other diseases classified elsewhere with behavioral disturbance
[2018-06-30] MEDS: Sod Chloride 0.9% Inj 1,000 ML IV.CONT SCH ×2 (10:26→16:03)
[2018-06-30] MEDS: Metoprolol Tartrate 25 MG Tablet PO SCH ×3 (10:26→20:16)
[2018-06-30] MEDS: amLODIPine 10 MG Tablet PO SCH ×2 (10:26→12:33)
[2018-06-30] MEDS: Senna/Docusate Sodium 8.6/50 MG Tablet PO SCH ×3 (10:27→20:16)
[2018-06-30] MEDS ORDERED: Vancomycin Consult Pharmacy OTHER PRN (10:59)
[2018-06-30] MEDS ORDERED: Vancomycin Inj 1,000 MG in Sodium Chlor 0.9% Inj 250 ML IV.SIG ONE (12:00)
[2018-06-30] MEDS: Ferrous Sulfate 325 MG Tablet PO SCH ×2 (12:32→16:03)
--- NOTE | 2018-06-30 13:32 | P.CONNP ---
<Lyn Dominguez - Last Filed: 06/30/18 13:15> History of Present Illness Service: Nephrology Consult date: 06/30/18 Requesting Physician: Anna Carmona Reason for Consult: Acute kidney injury Primary Care Provider: UNKNOWN Chief Complaint: "I'm very happy" History of Present Illness: Patient is a 88-year-old male with past medical history of Alzheimer's Dementia was originally brought to the ER under [place] by Police secondary to suicidal ideation. Unable to obtain history from patient, as he has is non verbal with altered mental status. Initially treated for urinary tract infection. Nephrology is consulted for acute kidney injury with a creatinine of 1.22 that increased to 4.0 today. On admission creatinine was 1.63 which improved to 1.2. Urine with large hematuria, mild proteinuria. Bladder scan done this morning with over 1 liter of urinary retention, indwelling was placed. Acute kidney injury, post renal from urinary retention. Review of Systems unobtainable due to mental status PMFSH - History History Provided By: Patient, Medical Record - Medical History Medical History: Medical History (Last Reviewed 06/24/18 @ 16:09 by Rachel Guillaume MD) Alzheimer disease - Tobacco History Second Hand Smoke Exposure: No Tobacco Use In Past 30 Days: No Smoking Status: Never smoker - Alcohol History How Often Do You Have a Drink Containing Alcohol: Never - Substance Use History Substance History: No History of Abuse - Travel History Recent Travel in the [place] Within the Last 8 Weeks: No Recent Travel Out of the Country Within the Last 8 Weeks: No - Immunization History Tetanus Immunization: Unable to Assess Hx Influenza Vaccine This Season: Unable to Assess Medications and Allergies Allergies Allergy/AdvReac Type Severity Reaction Status Date / Time lisinopril Allergy Severe tounge Verified 06/22/18 20:19 swelling Active Medications: Active Medications Al Hydroxide/Mg Hydroxide (Milk Of Magnesia Liq) 30 ml PO Q12H PRN PRN Reason: Mild Constipation Amlodipine Besylate (Norvasc) 10 mg PO DAILY [facility] Last Admin: 06/30/18 12:33 Dose: Not Given Bisacodyl (Dulcolax Supp) 10 mg RECTAL DAILY PRN PRN Reason: SEVERE CONSITIPATION Ferrous Sulfate (Ferosul) 325 mg PO BID@1200,1700 [facility] Last Admin: 06/30/18 12:32 Dose: Not Given Sodium Chloride (Ns Inj) 1,000 mls @ 125 mls/hr IV.CONT .Q8H [facility] Last Admin: 06/30/18 10:26 Dose: 125 mls/hr Ceftriaxone Sodium 2,000 mg/ (Sodium Chloride) 100 mls @ 200 mls/hr IV.SIG Q24H [facility] Last Infusion: 06/30/18 11:05 Dose: Infused Lactulose (Lactulose Liq) 30 ml PO DAILY PRN PRN Reason: SEVERE CONSITIPATION Metoprolol Tartrate (Lopressor) 25 mg PO BID [facility] Last Admin: 06/30/18 12:33 Dose: Not Given Pharmacy Profile Note (Vancomycin Consult Pharmacy) 1 each OTHER UNSCH PRN PRN Reason: Pharmacy to dose Senna/Docusate Sodium (Jenn-Colace) 1 tab PO BID [facility] Last Admin: 06/30/18 12:33 Dose: Not Given Sennosides (Senokot) 17.2 mg PO Q12H PRN PRN Reason: Moderate Constipation Tamsulosin HCl (Flomax) 0.4 mg PO DAILY [facility] Last Admin: 06/30/18 12:32 Dose: Not Given Exam Vital signs: Vital Signs 06/29/18 16:00 06/29/18 20:00 06/30/18 00:00 Temperature 97.5 F L 98.3 F 98.1 F Pulse Rate 71 65 78 Respiratory Rate 16 20 20 Blood Pressure 153/68 H 165/73 H 137/77 Pulse Oximetry 98 95 95 06/30/18 04:00 06/30/18 08:00 06/30/18 12:00 Temperature 98.3 F 98.9 F 97.4 F L Pulse Rate 80 73 67 Respiratory Rate 20 16 18 Blood Pressure 140/64 135/60 152/58 H Pulse Oximetry 94 L 97 95 Intake & Output 06/29/18 06/30/18 06/30/18 18:59 06:59 18:59 Intake Total 200 / 200 Output Total 1400 / 1400 Balance -1200 / -1200 Intake: IV 200 / 200 Levaquin 500 mg Premix Inj 500 100 / 100 mg In 100 ml @ 100 mls/hr IV. SIG ONCE ONE Rx#:[id number] Rocephin Inj 2,000 MG In NS Inj 100 / 100 100 ML @ 200 mls/hr IV.SIG Q24H [facility] Rx#:[id number] Output: Urine Amount (Catheter) 1400 / 1400 Indwelling Urethral Catheter 1400 / 1400 Other: Date of Last Bowel Movement 06/28/18 Narrative: GENERAL: Lethargic, non verbal, does not follow commands. SKIN: Warm and dry. Pale HEAD: Normocephalic. EYES: No scleral icterus. No injection or drainage. NECK: Supple, trachea midline. No JVD or lymphadenopathy. CARDIOVASCULAR: Regular rate and rhythm. RESPIRATORY: Breath sounds equal bilaterally. No accessory muscle use. GASTROINTESTINAL: Abdomen soft, non-tender, nondistended GENITOURINARY: Indwelling Garza catheter MUSCULOSKELETAL: No cyanosis, or edema. BACK: Nontender without obvious deformity. No CVA tenderness. Results - Lab Results 06/30/18 06:25 06/30/18 06:25 Most recent lab results Calcium 9.1 mg/dL (8.5-10.1) 06/30/18 06:25 Assessment and Plan - Assessment (1) PEDRO PABLO (acute kidney injury) Code(s): N17.9 - Acute kidney failure, unspecified Status: Acute Plan: Acute kidney injury with a creatinine of 1.22 that increased to 4.0 today. Acute kidney injury, post renal from urinary retention. On admission creatinine was 1.63 which improved to 1.2. Urine with large hematuria, mild proteinuria. Plan Avoid nephrotoxins including NSAIDS, IV contrast, and aminoglycosides Monitor strict I+O Continue IVF's Maintain indwelling Garza catheter for retention. Continue Flomax Will order renal ultrasound looking for masses or obstructions. Expect improvement in renal function tomorrow Labs in AM (2) UTI (urinary tract infection) Code(s): N39.0 - Urinary tract infection, site not specified Status: Acute Plan: On antibiotics (3) Hypertension Code(s): I10 - Essential (primary) hypertension Status: Acute Plan: Continue amlodipine and metoprolol Will monitor <Liza Knight - Last Filed: 07/03/18 15:24> History of Present Illness Primary Care Provider: UNKNOWN [facility] - Medical History Medical History: Medical History (Last Reviewed 06/24/18 @ 16:09 by Rachel Guillaume MD) Alzheimer disease Medications and Allergies Active Medications: Active Medications Al Hydroxide/Mg Hydroxide (Milk Of Magnesia Liq) 30 ml PO Q12H PRN PRN Reason: Mild Constipation Amlodipine Besylate (Norvasc) 10 mg PO DAILY [facility] Last Admin: 07/03/18 09:17 Dose: 10 mg Bisacodyl (Dulcolax Supp) 10 mg RECTAL DAILY PRN PRN Reason: SEVERE CONSITIPATION Collagenase (Santyl Oint) 1 applicatio TOPICAL DAILY [facility] Last Admin: 07/03/18 12:59 Dose: 1 applicatio Ferrous Sulfate (Ferosul) 325 mg PO BID@1200,1700 [facility] Last Admin: 07/03/18 12:22 Dose: 325 mg Sodium Chloride (1/2 Normal Saline Inj) 1,000 mls @ 84 mls/hr IV.CONT .[id number] [facility] Last Admin: 07/03/18 12:09 Dose: 84 mls/hr Lactulose (Lactulose Liq) 30 ml PO DAILY PRN PRN Reason: SEVERE CONSITIPATION Metoprolol Tartrate (Lopressor) 25 mg PO BID [facility] Last Admin: 07/03/18 09:17 Dose: 25 mg Senna/Docusate Sodium (Jenn-Colace) 1 tab PO BID [facility] Last Admin: 07/03/18 09:17 Dose: 1 tab Sennosides (Senokot) 17.2 mg PO Q12H PRN PRN Reason: Moderate Constipation Sodium Chloride (Ns Flush) 2 ml IV.FLUSH BID [facility] Last Admin: 07/03/18 09:17 Dose: Not Given Sodium Chloride (Ns Flush) 2 ml IV.FLUSH PRN PRN PRN Reason: FLUSH AFTER USING IV ACCESS Tamsulosin HCl (Flomax) 0.4 mg PO DAILY [facility] Last Admin: 07/03/18 09:17 Dose: 0.4 mg Exam Vital signs: Vital Signs 07/02/18 16:00 07/02/18 20:00 07/02/18 23:27 Temperature 97.8 F 97.8 F 97.6 F Pulse Rate 60 66 60 Respiratory Rate 18 18 19 Blood Pressure 158/67 H 119/56 L 102/56 L Pulse Oximetry 96 98 100 07/03/18 08:00 07/03/18 12:00 Temperature 97.5 F L 97.2 F L Pulse Rate 62 58 L Respiratory Rate 16 16 Blood Pressure 131/61 109/55 L Pulse Oximetry 94 L 100 Intake & Output 07/02/18 07/03/18 07/03/18 18:59 06:59 18:59 Intake Total 2100 / 2100 1260 / 1260 1000 / 1000 Output Total 850 / 850 1225 / 1225 Balance 1250 / 1250 35 / 35 1000 / 1000 Weight 63.3 kg Intake: IV 1350 / 1350 1260 / 1260 1000 / 1000 1/2 Normal Saline Inj 1,000 ML 1000 / 1000 1000 / 1000 1000 / 1000 @ 84 mls/hr IV.CONT .[id number] [facility] Rx#:[id number] Potassium Phosphate Inj 30 MMOL 260 / 260 In NS Inj 250 ML @ 43.333 mls/ hr IV.SIG ONCE ONE Rx#:[id number] Vancomycin Inj 1,000 MG In NS 250 / 250 Inj 250 ML @ 250 mls/hr IV.SIG Q24H [facility] Rx#:[id number] Rocephin Inj 2,000 MG In NS Inj 100 / 100 100 ML @ 200 mls/hr IV.SIG Q24H [facility] Rx#:[id number] Oral 750 / 750 Output: Urine 850 / 850 Urine Amount (Catheter) 1225 / 1225 Indwelling Urethral Catheter 1225 / 1225 Other: # Voids 1 Results - Lab Results 07/02/18 05:12 07/02/18 05:12 Most recent lab results Calcium 8.2 mg/dL (8.5-10.1) L 07/02/18 05:12 Phosphorus 1.8 mg/dL (2.5-4.9) L 07/02/18 05:12 Assessment and Plan - Assessment (1) PEDRO PABLO (acute kidney injury) Code(s): N17.9 - Acute kidney failure, unspecified Status: Acute Plan: Patient seen and examined, agree with above. Most likely has pre renal element. Continue IVF. Work up as above. (2) UTI (urinary tract infection) Code(s): N39.0 - Urinary tract infection, site not specified Status: Acute (3) Hypertension Code(s): I10 - Essential (primary) hypertension Status: Acute
--- NOTE | 2018-06-30 15:08 | US ---
EXAM DATE: 06/30/2018 12:00 AM EDT AGE/SEX: 88 years / Male INDICATIONS: Increased BUN and creatinine. CLINICAL DATA: This is the patient's initial encounter. Patient reports that signs and symptoms have been present for 1 day and indicates a pain score of Nonresponsive. MEDICAL/SURGICAL HISTORY: Alzheimer's disease. Hypertension. Non-responsive. COMPARISON: . MEASUREMENTS: Right Kidney:__10.6 x 4.9 x 4.5 cm Left Kidney:__12.1 x 6.4 x 5.3 cm FINDINGS: Right Kidney: The examination demonstrates increased echogenicity of the renal cortex and cortical th inning. No hydronephrosis is evident. There is a 1.2 x 0.9 x 1.2 cm simple cyst present within the co rtex. Left Kidney: The renal cortex is echogenic. There is mild cortical thinning. There is no hydronephros is. Note is made of a 1.5 x 1.6 x 1.6 cm simple cyst involving the midpole. Bladder: Garza catheter is present. Bladder decompressed. Other: None. CONCLUSION: 1. Echogenic renal cortex without evidence of hydronephrosis suggesting underlying medical renal dis ease. Electronically signed by: Fredo Gonzales MD 06/30/2018 3:07 PM EDT
[2018-07-01] MEDS: Sod Chloride 0.9% Inj 1,000 ML IV.CONT SCH ×2 (00:03→08:59)
[2018-07-01 06:11] LABS: Baso % (Auto) 0.3 % (0.0-2.0); Eos % (Auto) 0.4 % (0.0-4.0); Hematocrit 30.6 % (39.0-51.0); Hemoglobin 10.4 gm/dL (13.0-17.0); Lymph # (Auto) 0.9 th/mm3 (1.0-4.8); Mean Corpuscular HGB Conc 34.1 % (32.0-36.0); Mean Corpuscular Hemoglobin 29.8 pg (27.0-34.0); Mean Corpuscular Volume 87.2 fL (80.0-100.0); Mean Platelet Volume 9.4 fL (7.0-11.0); Mono # (Auto) 0.8 th/mm3 (0.0-0.9); Neut # (Auto) 6.8 th/mm3 (1.8-7.7); Neut % (Auto) 79.3 % (16.0-70.0); Platelet Count 141 th/mm3 (150-450); Red Blood Count 3.51 mil/mm3 (4.50-5.90); White Blood Count 8.5 th/mm3 (4.0-11.0)
[2018-07-01 06:28] LABS: Albumin 2.9 g/dL (3.4-5.0); Calcium 8.6 mg/dL (8.5-10.1); Carbon Dioxide 23.7 meq/L (21.0-32.0); Phosphorus 2.6 mg/dL (2.5-4.9); Potassium 3.6 meq/L (3.5-5.1); Vancomycin,Random 7.1 Comment
[2018-07-01] MEDS: Senna/Docusate Sodium 8.6/50 MG Tablet PO SCH ×2 (08:57→22:07)
[2018-07-01] MEDS: amLODIPine 10 MG Tablet PO SCH (08:58)
[2018-07-01] MEDS: Metoprolol Tartrate 25 MG Tablet PO SCH ×2 (08:58→22:07)
[2018-07-01] MEDS ORDERED: Sodium Chloride 0.9% 2 ML Flush PRN IV.FLUSH (10:48)
--- NOTE | 2018-07-01 10:48 | P.PNNP ---
Subjective Interval history: Patients mental status has improved. Creatinine improved at 1.54 today with good urinary output. <Lyn Dominguez - Last Filed: 07/01/18 10:42> Interval history: Patient is alert, not in distress. <Liza Knight - Last Filed: 07/03/18 17:58> Physical Exam Vital signs: Vital Signs 06/30/18 12:00 06/30/18 16:00 06/30/18 20:00 Temperature 97.4 F L 99.0 F 98.1 F Pulse Rate 67 71 76 Respiratory Rate 18 19 17 Blood Pressure 152/58 H 137/84 110/56 L Pulse Oximetry 95 93 L 93 L 07/01/18 00:00 07/01/18 08:00 Temperature 99.0 F 97.2 F L Pulse Rate 74 75 Respiratory Rate 19 18 Blood Pressure 101/50 L 167/68 H Pulse Oximetry 95 95 Intake & Output 06/30/18 07/01/18 07/01/18 18:59 06:59 18:59 Intake Total 1450 / 1450 1000 / 1000 1100 / 1100 Output Total 1900 / 1900 120 / 120 Balance -450 / -450 880 / 880 1100 / 1100 Weight 59 kg Intake: IV 1450 / 1450 1000 / 1000 1100 / 1100 NS Inj 1,000 ML @ 125 mls/hr IV 1000 / 1000 1000 / 1000 1000 / 1000 .CONT .Q8H [facility] Rx#:[id number] Levaquin 500 mg Premix Inj 500 100 / 100 mg In 100 ml @ 100 mls/hr IV. SIG ONCE ONE Rx#:[id number] Vancomycin Inj 1,000 MG In NS 250 / 250 Inj 250 ML @ 250 mls/hr IV.SIG ONCE ONE Rx#:[id number] Rocephin Inj 2,000 MG In NS Inj 100 / 100 100 / 100 100 ML @ 200 mls/hr IV.SIG Q24H [facility] Rx#:[id number] Output: Urine 500 / 500 Urine Amount (Catheter) 1400 / 1400 120 / 120 Indwelling Urethral Catheter 1400 / 1400 120 / 120 Other: Date of Last Bowel Movement 06/28/18 06/28/18 # Bowel Movements 0 Narrative: GENERAL: Alert, not oriented. NAD SKIN: Warm and dry. Pale HEAD: Normocephalic. EYES: No scleral icterus. No injection or drainage. NECK: Supple, trachea midline. No JVD or lymphadenopathy. CARDIOVASCULAR: Regular rate and rhythm. RESPIRATORY: Breath sounds equal bilaterally. No accessory muscle use. GASTROINTESTINAL: Abdomen soft, non-tender, nondistended GENITOURINARY: Indwelling Garza catheter MUSCULOSKELETAL: No cyanosis, or edema. BACK: Nontender without obvious deformity. No CVA tenderness. - Urinary Catheter Management Straight Cath placed during this visit: yes, but has since been removed by the nurse Reason for continuing: Acute urinary retention Insertion date: 06/30/18 Insertion time: 09:03 Removal date: 06/22/18 Removal time: 22:43 Indwelling Urethral Catheter Cath placed during this visit: no Reason for continuing: Acute urinary retention <Lyn Dominguez - Last Filed: 07/01/18 10:42> Vital signs: Vital Signs 07/01/18 12:00 07/01/18 16:00 07/01/18 19:59 Temperature 97.4 F L 97.5 F L 97.8 F Pulse Rate 62 70 66 Respiratory Rate 18 17 19 Blood Pressure 150/65 H 163/70 H 155/66 H Pulse Oximetry 91 L 94 L 96 07/02/18 00:00 07/02/18 08:00 Temperature 97.8 F 97.7 F Pulse Rate 58 L 56 L Respiratory Rate 19 14 Blood Pressure 153/66 H 136/62 Pulse Oximetry 95 99 Intake & Output 07/01/18 07/02/18 07/02/18 18:59 06:59 18:59 Intake Total 2065 / 2065 1180 / 1180 250 / 250 Output Total 1600 / 1600 680 / 680 Balance 465 / 465 500 / 500 250 / 250 Weight 59 kg Intake: IV 1750 / 1750 1000 / 1000 100 / 100 NS Inj 1,000 ML @ 125 mls/hr IV 1400 / 1400 .CONT .Q8H [facility] Rx#:[id number] 1/2 Normal Saline Inj 1,000 ML 1000 / 1000 @ 84 mls/hr IV.CONT .[id number] [facility] Rx#:[id number] Vancomycin Inj 1,000 MG In NS 250 / 250 Inj 250 ML @ 250 mls/hr IV.SIG Q24H [facility] Rx#:[id number] Rocephin Inj 2,000 MG In NS Inj 100 / 100 100 / 100 100 ML @ 200 mls/hr IV.SIG Q24H [facility] Rx#:[id number] Oral 315 / 315 180 / 180 150 / 150 Output: Urine 1600 / 1600 Urine Amount (Catheter) 680 / 680 Indwelling Urethral Catheter 680 / 680 Other: Date of Last Bowel Movement 06/28/18 # Bowel Movements 0 - Urinary Catheter Management Straight Cath placed during this visit: no Indwelling Urethral Catheter Cath placed during this visit: no <Janey Layton - Last Filed: 07/02/18 11:43> Vital signs: Vital Signs 07/02/18 20:00 07/02/18 23:27 07/03/18 08:00 Temperature 97.8 F 97.6 F 97.5 F L Pulse Rate 66 60 62 Respiratory Rate 18 19 16 Blood Pressure 119/56 L 102/56 L 131/61 Pulse Oximetry 98 100 94 L 07/03/18 12:00 07/03/18 16:00 Temperature 97.2 F L 97.9 F Pulse Rate 58 L 69 Respiratory Rate 16 16 Blood Pressure 109/55 L 106/72 Pulse Oximetry 100 100 Intake & Output 07/02/18 07/03/18 07/03/18 18:59 06:59 18:59 Intake Total 2100 / 2100 1260 / 1260 1000 / 1000 Output Total 850 / 850 1225 / 1225 Balance 1250 / 1250 35 / 35 1000 / 1000 Weight 63.3 kg Intake: IV 1350 / 1350 1260 / 1260 1000 / 1000 1/2 Normal Saline Inj 1,000 ML 1000 / 1000 1000 / 1000 1000 / 1000 @ 84 mls/hr IV.CONT .[id number] [facility] Rx#:[id number] Potassium Phosphate Inj 30 MMOL 260 / 260 In NS Inj 250 ML @ 43.333 mls/ hr IV.SIG ONCE ONE Rx#:[id number] Vancomycin Inj 1,000 MG In NS 250 / 250 Inj 250 ML @ 250 mls/hr IV.SIG Q24H [facility] Rx#:[id number] Rocephin Inj 2,000 MG In NS Inj 100 / 100 100 ML @ 200 mls/hr IV.SIG Q24H [facility] Rx#:[id number] Oral 750 / 750 Output: Urine 850 / 850 Urine Amount (Catheter) 1225 / 1225 Indwelling Urethral Catheter 1225 / 1225 Other: # Voids 1 Narrative: GENERAL: Alert, not oriented. NAD SKIN: Warm and dry. Pale HEAD: Normocephalic. EYES: No scleral icterus. No injection or drainage. NECK: Supple, trachea midline. No JVD or lymphadenopathy. CARDIOVASCULAR: Regular rate and rhythm. RESPIRATORY: Breath sounds equal bilaterally. No accessory muscle use. GASTROINTESTINAL: Abdomen soft, non-tender, nondistended GENITOURINARY: Indwelling Garza catheter MUSCULOSKELETAL: No cyanosis, or edema. BACK: Nontender without obvious deformity. No CVA tenderness. - Urinary Catheter Management Straight Cath placed during this visit: no Indwelling Urethral Catheter Cath placed during this visit: no <Liza Knight - Last Filed: 07/03/18 17:58> Assessment and Plan - Assessment (1) PEDRO PABLO (acute kidney injury) Code(s): N17.9 - Acute kidney failure, unspecified Status: Acute Plan: Acute kidney injury with a creatinine of 1.22 that increased to 4.0 today. Acute kidney injury, post renal from urinary retention. On admission creatinine was 1.63 which improved to 1.2. Urine with large hematuria, mild proteinuria. Renal ultrasound with echogenic renal cortex without evidence of hydronephrosis suggesting underlying medical renal disease. Plan Avoid nephrotoxins including NSAIDS, IV contrast, and aminoglycosides Monitor strict I+O Continue IVF's, changed to 1/2 NS and rate decreased, may discontinue when taking PO well Maintain indwelling Garza catheter for retention. Continue Flomax Will follow urinary output and BMP Labs in AM (2) UTI (urinary tract infection) Code(s): N39.0 - Urinary tract infection, site not specified Status: Acute Plan: On antibiotics (3) Hypertension Code(s): I10 - Essential (primary) hypertension Status: Acute Plan: Continue amlodipine and metoprolol Will monitor <Lyn Dominguez - Last Filed: 07/01/18 10:42> - Assessment (1) Dementia Code(s): F03.90 - Status: Chronic Qualifiers: Dementia type: Alzheimer's disease Alzheimer's disease onset: late-onset Dementia behavioral disturbance: with behavioral disturbance Qualified Code(s) : G30.1 - Alzheimer's disease with late onset; F02.81 - Dementia in other diseases classified elsewhere with behavioral disturbance (2) UTI (urinary tract infection) Code(s): N39.0 - Status: Acute (3) PEDRO PABLO (acute kidney injury) Code(s): N17.9 - Status: Acute <CalinLgluciana - Last Filed: 07/02/18 11:43> - Assessment (1) PEDRO PABLO (acute kidney injury) Code(s): N17.9 - Acute kidney failure, unspecified Status: Acute (2) UTI (urinary tract infection) Code(s): N39.0 - Urinary tract infection, site not specified Status: Acute (3) Hypertension Code(s): I10 - Essential (primary) hypertension Status: Acute - Plan (1) PEDRO PABLO (acute kidney injury) Code(s): N17.9 - Status: Acute Plan: Acute kidney injury with a creatinine of 1.22 that increased to 4.0 on day of consult. Acute kidney injury, post renal from urinary retention. Urine with large hematuria, mild proteinuria. Renal ultrasound with echogenic renal cortex without evidence of hydronephrosis suggesting underlying medical renal disease. Plan Avoid nephrotoxins including NSAIDS, IV contrast, and aminoglycosides Monitor strict I+O On IVF's, discontinue when taking PO well Maintain indwelling Garza catheter for retention. Continue Flomax Creatinine is better, 1.5. Continue hydration. (2) UTI (urinary tract infection) Code(s): N39.0 - Status: Acute Plan: On antibiotics (3) Hypertension Code(s): I10 - Status: Acute Plan: Continue amlodipine and metoprolol Will monitor <Liza Knight - Last Filed: 07/03/18 17:58>
--- NOTE | 2018-07-01 11:42 | P.DIET ---
Nutritional Evaluation Type of nutrition evaluation: initial Screening comments: [place] [facility] [place] Subjective Subjective Comments: Needs assist w/meals Objective - Diagnosis Social Admit - Objective [place] body weight: 67.3 kg % IBW: 89 Body Weight Used for Calculations: Actual (59.9kg) Energy Needs - Lower Range (kCal/kg): 30 Energy Needs - Upper Range (kCal/kg): 35 Lower Limit kCal/kg (kCals): 1,797 Upper Limit kCal/kg (kCals): 2,097 Lower Limit Protein Factor (Grams per Kg): 1.1 Upper Limit Protein Factor (Grams per Kg): 1.4 Lower Protein Needs (Protein): 66 Upper Protein Needs (Protein): 84 Fluid Factor (ml/kg): 30 Estimated Fluid Needs (ml): 2,097 Dietitian Reviewed in Medical Record: Current diet, Curent medications, Intake & Output, Labs, Medical history Diet Order: Regular Oral Diet Intake Amount: Fair 50-75% Objective Comments: PMH: Alzheimer Disease Skin: legt forearm soft tissue infection w/small draining abscess; posterior buttocks pressure injury Labs Include: BUN 69, Creatinine 1.54, estGFR 43, Glucose 87, Albumin 2.9 LBM 06/28 Assessment Assessment: Pt is at nutritional risk r/t clinical status and low BMI. Variable PO intake 0- 75% for meals here. Send Ensure Enlive BID(= 350 kcal and 20g Protein). Send Ensure Pudding BID(= 170 kcal and 4g Protein). Follow-up for pt supplement acceptance. Labs reviewed w/renal labs improving-monitor. Dietitian will follow. Recommendations: 1. Send Ensure Enlive BID 2. Send Ensure Pudding BID 3. Dietitian will follow Dietitian to Monitor: Lab values, Electrolytes, Renal labs, Supplement acceptance, Intake & Output, Diet tolerance, Weight change, PO Intake, Wound/ skin status, Medical course
[2018-07-01] MEDS: Sodium Chloride 0.45 % Inj 1,000 ML IV.CONT SCH (11:46)
[2018-07-01] MEDS: Vancomycin Inj 1,000 MG in Sodium Chlor 0.9% Inj 250 ML IV.SIG SCH (11:49)
[2018-07-01] MEDS: Ferrous Sulfate 325 MG Tablet PO SCH ×2 (11:58→17:10)
--- NOTE | 2018-07-01 15:16 | P.PN ---
Subjective Interval history: Patient appears in not acute distress at this time. He is pleasantly confused. He is not agitated. Has no complaints. Says no fever or chills. Says he is eating fairly well. No nausea or vomiting. Vital signs are stable. Physical Exam Vital signs: Vital Signs 06/30/18 16:00 06/30/18 20:00 07/01/18 00:00 Temperature 99.0 F 98.1 F 99.0 F Pulse Rate 71 76 74 Respiratory Rate 19 17 19 Blood Pressure 137/84 110/56 L 101/50 L Pulse Oximetry 93 L 93 L 95 07/01/18 08:00 07/01/18 12:00 Temperature 97.2 F L 97.4 F L Pulse Rate 75 62 Respiratory Rate 18 18 Blood Pressure 167/68 H 150/65 H Pulse Oximetry 95 91 L Intake & Output 06/30/18 07/01/18 07/01/18 18:59 06:59 18:59 Intake Total 1450 / 1450 1000 / 1000 1750 / 1750 Output Total 1900 / 1900 120 / 120 Balance -450 / -450 880 / 880 1750 / 1750 Weight 59 kg Intake: IV 1450 / 1450 1000 / 1000 1750 / 1750 NS Inj 1,000 ML @ 125 mls/hr IV 1000 / 1000 1000 / 1000 1400 / 1400 .CONT .Q8H [facility] Rx#:[id number] Levaquin 500 mg Premix Inj 500 100 / 100 mg In 100 ml @ 100 mls/hr IV. SIG ONCE ONE Rx#:[id number] Vancomycin Inj 1,000 MG In NS 250 / 250 250 / 250 Inj 250 ML @ 250 mls/hr IV.SIG Q24H [facility] Rx#:[id number] Rocephin Inj 2,000 MG In NS Inj 100 / 100 100 / 100 100 ML @ 200 mls/hr IV.SIG Q24H [facility] Rx#:[id number] Output: Urine 500 / 500 Urine Amount (Catheter) 1400 / 1400 120 / 120 Indwelling Urethral Catheter 1400 / 1400 120 / 120 Other: Date of Last Bowel Movement 06/28/18 06/28/18 # Bowel Movements 0 Narrative: GENERAL: Pleasantly confused elderly male appears to not acute distress. Alert , not oriented. SKIN: Warm and dry. Pale. Left arm with wound dressing CDI. CARDIOVASCULAR: Regular rate and rhythm. RESPIRATORY: Breath sounds equal bilaterally. No accessory muscle use. GASTROINTESTINAL: Abdomen soft, non-tender, nondistended GENITOURINARY: Indwelling Garza catheter MUSCULOSKELETAL: No cyanosis, or edema. BACK: Nontender without obvious deformity. No CVA tenderness. - Urinary Catheter Management Straight Cath placed during this visit: yes, but has since been removed by the nurse Reason for continuing: Acute urinary retention Insertion date: 06/30/18 Insertion time: 09:03 Removal date: 06/22/18 Removal time: 22:43 Indwelling Urethral Catheter Cath placed during this visit: no Reason for continuing: Acute urinary retention Results - Labs CBC & Chem 7: 07/01/18 04:02 07/01/18 04:02 Laboratory Results - last 24 hr 07/01/18 07/01/18 04:02 04:02 WBC 8.5 RBC 3.51 L Hgb 10.4 L Hct 30.6 L MCV 87.2 MCH 29.8 MCHC 34.1 RDW 15.0 Plt Count 141 L MPV 9.4 Neut % (Auto) 79.3 H Lymph % (Auto) 11.0 [place] % (Auto) 9.0 H Eos % (Auto) 0.4 Baso % (Auto) 0.3 Neut # (Auto) 6.8 Lymph # (Auto) 0.9 L [place] # (Auto) 0.8 Eos # (Auto) 0.0 Baso # (Auto) 0.0 WBC Differential . Differential Comment Auto diff final Sodium 146 H Potassium 3.6 Chloride 112 H D Carbon Dioxide 23.7 Anion Gap 10 BUN 69 H Creatinine 1.54 H Estimated GFR 43 L Random Glucose 87 Calcium 8.6 Phosphorus 2.6 Albumin 2.9 L Random Vancomycin 7.1 Microbiology 06/30/18 10:53 Abscess - Arm Gram Stain - Final 06/30/18 10:53 Abscess - Arm Wound Culture - Preliminary Group A beta Strep S. aureus MRSA - Procedures Garza Catheter placed on 06/30/2018. Assessment and Plan - Assessment (1) Dementia Code(s): F03.90 - Unspecified dementia without behavioral disturbance Status: Chronic (2) UTI (urinary tract infection) Code(s): N39.0 - Urinary tract infection, site not specified Status: Acute (3) PEDRO PABLO (acute kidney injury) Code(s): N17.9 - Acute kidney failure, unspecified Status: Acute - Plan This is an 88-year-old male with PMH of Alzheimer's Dementia was originally brought to the ER under [employer] Act by Police secondary to suicidal ideation. Unable to obtain much history from patient, per report pt had argued w/ family members and left the house, found wandering into traffic by police. S/p eval by Psychiatry, not noted to be suicidal/homicidal and BA lifted. Pt attempted to be discharged, however family not willing to take patient back despite being informed by Officer that DCF would be called. Patient was subsequently admitted as 'bedded outpatient'. Patient was being treated for UTI with Macrobid and treatment finished on 06/29/2018. On 06/30/2018, he was found to have significant decline in mental status, increased WBC and increased Creatinine. Acute metabolic encephalopathy Hx of Alzheimer's dementia -Likely due to Urinary tract infection and urinary retention -Will consult Palliative care. Per previous notes, DCF is already involved. -Possibly due to uremia as well. Leukocytosis Possible UTI -Patient WBC count went from 6.9 --> 14.7. -We will start patient empirically on ceftriaxone 2 g daily and Levaquin 500 mg once. -We will repeat urinalysis, lactic acid level -Chest x-ray was unremarkable. If UTI suggested by urinalysis, will decrease ceftriaxone to 1 g daily. - Left arm wound: Wound cultures pending. Consult wound care. started on vancomycin IV. Consult ID for further eval and abx recommendations. Acute kidney injury Urinary retention -Creatinine was 1.22 on 06/28/2018. This morning creatinine is 4.0. BUN jumped from 33-78. -Creatinine elevation is likely due to urinary retention. -Place a Garza catheter. Will consult nephrology. 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 Hypertension Continue amlodipine 10 mg, metoprolol 25 mg twice daily. Full code. SCDs. Discussed with the patient, nurse. (1) Dementia Qualifiers: Dementia type: Alzheimer's disease Alzheimer's disease onset: late-onset Dementia behavioral disturbance: with behavioral disturbance Qualified Code(s) : G30.1 - Alzheimer's disease with late onset; F02.81 - Dementia in other diseases classified elsewhere with behavioral disturbance
[2018-07-01] MEDS: Sodium Chloride 0.9% 2 ML Flush BID IV.FLUSH SCH (22:07)
[2018-07-02] MEDS: Sodium Chloride 0.45 % Inj 1,000 ML IV.CONT SCH ×2 (02:04→12:03)
[2018-07-02 06:18] LABS: Baso % (Auto) 0.5 % (0.0-2.0); Eos # (Auto) 0.1 th/mm3 (0.0-0.4); Hematocrit 30.1 % (39.0-51.0); Hemoglobin 10.2 gm/dL (13.0-17.0); Lymph # (Auto) 0.9 th/mm3 (1.0-4.8); Lymph % (Auto) 17.8 % (9.0-44.0); Mean Corpuscular HGB Conc 33.8 % (32.0-36.0); Mean Corpuscular Hemoglobin 29.7 pg (27.0-34.0); Mean Corpuscular Volume 87.8 fL (80.0-100.0); Mean Platelet Volume 8.8 fL (7.0-11.0); Mono # (Auto) 0.5 th/mm3 (0.0-0.9); Mono % (Auto) 10.2 % (0.0-8.0); Neut # (Auto) 3.3 th/mm3 (1.8-7.7); Neut % (Auto) 68.5 % (16.0-70.0); Platelet Count 144 th/mm3 (150-450); Red Blood Count 3.43 mil/mm3 (4.50-5.90); Red Cell Distribution Width 14.8 % (11.6-17.2); White Blood Count 4.8 th/mm3 (4.0-11.0)
[2018-07-02 06:46] LABS: Albumin 2.8 g/dL (3.4-5.0); Calcium 8.2 mg/dL (8.5-10.1); Phosphorus 1.8 mg/dL (2.5-4.9); Potassium 3.4 meq/L (3.5-5.1)
[2018-07-02] MEDS: amLODIPine 10 MG Tablet PO SCH (08:33)
[2018-07-02] MEDS: Metoprolol Tartrate 25 MG Tablet PO SCH ×2 (08:33→21:28)
[2018-07-02] MEDS: Senna/Docusate Sodium 8.6/50 MG Tablet PO SCH ×2 (08:33→21:28)
[2018-07-02] MEDS: Sodium Chloride 0.9% 2 ML Flush BID IV.FLUSH SCH ×2 (08:33→21:28)
--- NOTE | 2018-07-02 11:24 | P.CONPAL ---
Consult Service: Palliative Care Requesting Physician: Anna Carmona Reason for Consult: a. To assist with evaluation and management of symptoms including:confusion. b. To assist medical decision maker(s) with: better understanding of current medical conditions; weighing benefits/burdens of medical treatment options; making medical treatment decisions. Primary Care Provider: UNKNOWN History of Present Illness History of Present Illness: Mr. García is an 88 year old male with past medical history of Alzheimer's disease. Patient was at home reportedly arguing with family and threatening to walk into traffic. He was brought to [facility] by police under the [employer] Act. Psych evaluated the patient and lifted the [employer] Act, patient did not meet criteria for inpatient psych admission. Initial ER evaluation revealed: * VS; 98.4, HR 102, RR 20, BP 104/61, oxygen saturation 96% * WBC 10.1, hemoglobin 12.6, hematocrit 36.6, platelets 201, eutrophils 87.7% * Sodium 139, potassium 3.9, chloride 105, carbon dioxide 23.7, BUN 28, creatinine 1.63, glucose 192 * T. bili 0.6, AST 14, ALT 17, alk phos 56 * total protein 8.0, albumin 3.9 * TSH 1.780 * Urinalysis - occasional mucus * Tox screen - negative * Alcohol - less than 3 * CT head - no acute intracranial abnormalities. Family apparently refused to take the patient home, DCF was notified. Patient was admitted with acute mental status changes, possible UTI. Started on Macrobid. Additional test results since admission: * Forearm x-ray - no acute bony abnormality. * Lumbar spine x-ray - advanced degenerative disc disease with minimal degenerative listhesis, no acute fracture, mild scoliosis. * Thoracic spine x-ray - moderate advanced degenerative disc disease with mild kyphoscoliosis. Nephrology was consulted for increasing creatinine up to 4.0. Urine with hematuria and mild proteinuria. Catheter was placed for urinary retention. Acute kidney injury likely due to urinary retention. Abdomen bladder ultrasound - echogenic renal cortex without evidence of hydronephrosis suggesting underlying medical renal disease. Post catheter placement creatinine decreased to 1.54. Palliative care was consulted to assist with further clarification of goals of medical treatment in this patient with underlying Alzheimer's disease and deconditioning. Patient seen and examined in room, no family present. Also present Sweta Green, [employer]. Patient is awake and confused. He is able to answer many questions appropriately. He thinks he is in "the scientology." He appears quite malnourished, significant muscle wasting and temporal wasting noted. He denies pain or shortness of breath. He seems to understand we are looking for a place for him to live because he "cannot go back to his trailer." He indicates he has 4 living children, 1 . He indicates we should call his eldest son, Herman Mathis. Will ask case management to [facility] to see if he has written advance [facility]. He does not appear capacitated to make his own health care decisions at this time. Function/Cognitive Trajectory: He appears to have significant weight loss, notable temporal and muscle wasting noted. Review of Systems Constitutional: Reports fatigue, Reports lack of energy, Reports weakness, Reports weight loss Gastrointestinal: Reports constipation Genitourinary: Reports blood in urine, Reports other (urinary retention) Hematologic/Lymphatic: Reports easy bruising PMFSH - History History Provided By: Patient, Medical Record - Medical History Medical History: Medical History (Last Updated 07/02/18 @ 13:56 by Roselia Gonzalez) Alzheimer disease Face lesion - Surgical History Surgical History: Surgical History (Last Updated 07/02/18 @ 13:56 by Roselia Gonzalez) Face lesion - Family History Family History: Family History (Last Updated 07/02/18 @ 13:57 by Roselia Gonzalez) Son - Social History I have reviewed the patient's Social History: Yes - Tobacco History Second Hand Smoke Exposure: No Tobacco Use In Past 30 Days: No Smoking Status: Unknown if ever smoked - Alcohol History How Often Do You Have a Drink Containing Alcohol: Never - Substance Use History Substance History: No History of Abuse - Travel History Recent Travel in the [place] Within the Last 8 Weeks: No Recent Travel Out of the Country Within the Last 8 Weeks: No - Immunization History Tetanus Immunization: Unable to Assess Hx Influenza Vaccine This Season: Unable to Assess Medications and Allergies Active Medications: Active Medications Al Hydroxide/Mg Hydroxide (Milk Of Magnbreanna Liq) 30 ml PO Q12H PRN PRN Reason: Mild Constipation Amlodipine Besylate (Norvasc) 10 mg PO DAILY [facility] Last Admin: 07/02/18 08:33 Dose: 10 mg Bisacodyl (Dulcolax Supp) 10 mg RECTAL DAILY PRN PRN Reason: SEVERE CONSITIPATION Ferrous Sulfate (Ferosul) 325 mg PO BID@1200,1700 [facility] Last Admin: 07/01/18 17:10 Dose: 325 mg Ceftriaxone Sodium 2,000 mg/ (Sodium Chloride) 100 mls @ 200 mls/hr IV.SIG Q24H [facility] Last Infusion: 07/02/18 09:36 Dose: Infused Vancomycin HCl 1,000 mg/ (Sodium Chloride) 250 mls @ 250 mls/hr IV.SIG Q24H [facility] Last Infusion: 07/01/18 14:20 Dose: Infused Sodium Chloride (1/2 Normal Saline Inj) 1,000 mls @ 84 mls/hr IV.CONT .[id number] [facility] Last Admin: 07/02/18 02:04 Dose: 84 mls/hr Lactulose (Lactulose Liq) 30 ml PO DAILY PRN PRN Reason: SEVERE CONSITIPATION Metoprolol Tartrate (Lopressor) 25 mg PO BID [facility] Last Admin: 07/02/18 08:33 Dose: 25 mg Miscellaneous Information ([facility] [place]dered Lab Info) 0 each OTHER ONCE ONE Stop: 07/03/18 11:46 Pharmacy Profile Note (Vancomycin Consult Pharmacy) 1 each OTHER UNSCH PRN PRN Reason: Pharmacy to dose Senna/Docusate Sodium (Jenn-Colace) 1 tab PO BID [facility] Last Admin: 07/02/18 08:33 Dose: 1 tab Sennosides (Senokot) 17.2 mg PO Q12H PRN PRN Reason: Moderate Constipation Sodium Chloride (Ns Flush) 2 ml IV.FLUSH BID [facility] Last Admin: 07/02/18 08:33 Dose: Not Given Sodium Chloride (Ns Flush) 2 ml IV.FLUSH PRN PRN PRN Reason: FLUSH AFTER USING IV ACCESS Tamsulosin HCl (Flomax) 0.4 mg PO DAILY [facility] Last Admin: 07/02/18 08:33 Dose: 0.4 mg Allergies Allergy/AdvReac Type Severity Reaction Status Date / Time lisinopril Allergy Severe tounge Verified 06/22/18 20:19 swelling Advance Directives Living Will: Unknown Power of Senior Engineering Tech: Unknown Family/friends goals: Patient is not capacitated to make his own health care decisions, not expected to regain capacity given Alzheimer's disease. Ethical and Legal Issues: Patient is not capacitated to make his own health care decisions, not expected to regain capacity given Alzheimer's disease. No known written advanced directives. Will ask case management to contact [facility] to see if he has any on file. Patient states he has 4 living children (Herman, Rakesh and Jeanie possible names), uncertain if this is accurate. According to [place] statutes, health care proxy decision making falls to the majority of adult children if no written advance directives. Physical Exam Vital Signs: Vital Signs - 24 hr 07/01/18 12:00 07/01/18 16:00 07/01/18 19:59 Temperature 97.4 F L 97.5 F L 97.8 F Pulse Rate 62 70 66 Respiratory Rate 18 17 19 Blood Pressure 150/65 H 163/70 H 155/66 H Pulse Oximetry 91 L 94 L 96 07/02/18 00:00 07/02/18 08:00 Temperature 97.8 F 97.7 F Pulse Rate 58 L 56 L Respiratory Rate 19 14 Blood Pressure 153/66 H 136/62 Pulse Oximetry 95 99 I&O: Intake & Output 06/30/18 07/01/18 07/02/18 07/03/18 06:59 06:59 06:59 06:59 Intake Total 2450 / 2450 3245 / 3245 250 / 250 Output Total 2019 2280 / 2280 Balance 430 / 430 965 / 965 250 / 250 Weight 56.9 kg 59 kg 59 kg Physical Exam: CONSTITUTIONAL/GENERAL: This is an elderly, frail, cachectic patient, in no apparent distress. TUBES/LINES/DRAINS: PIV, Garza. SKIN: No jaundice, rashes, or lesions. Ecchymoses on upper extremities. Skin tears UEs. Left elbow wound 1x 0.5cm, scab noted. Skin temperature appropriate. Not diaphoretic. HEAD: Atraumatic. Normocephalic. EYES: Pupils equal and round and reactive. + injection left eye. ENT: Hearing grossly normal. Nose without bleeding or purulent drainage. Throat without visible erythema, exudates, masses, or lesions. NECK: Trachea midline. CARDIOVASCULAR: Regular rate and rhythm without murmurs, gallops, or rubs. No JVD. Peripheral pulses symmetric. RESPIRATORY/CHEST: unlabored respirations. Clear to auscultation. Breath sounds equal bilaterally. GASTROINTESTINAL: Abdomen soft, non-tender, nondistended. No hepato-splenomegaly , or palpable masses. No guarding. Bowel sounds present. GENITOURINARY: Without palpable bladder distension. Garza catheter in place. MUSCULOSKELETAL: Extremities without clubbing, cyanosis, or edema. No mottling or clubbing. LYMPHATICS: not examined. NEUROLOGICAL: Awake and pleasantly confused. alert. Generalized weakness. Moves all extremities. PSYCHIATRIC: ? hallucinations, reaching out for something in room, he is unable to articulate what he sees. Diagnostic Tests Laboratory: Laboratory Results - last 72 hr 06/30/18 06/30/18 06/30/18 06:25 06:25 09:01 WBC 14.7 H RBC 4.01 L Hgb 11.8 L Hct 34.7 L MCV 86.4 MCH 29.4 MCHC 34.0 RDW 15.4 Plt Count 160 MPV 8.8 Neut % (Auto) 86.9 H Lymph % (Auto) 4.3 L [place] % (Auto) 8.7 H Eos % (Auto) 0.0 Baso % (Auto) 0.1 Neut # (Auto) 12.8 H Lymph # (Auto) 0.6 L [place] # (Auto) 1.3 H Eos # (Auto) 0.0 Baso # (Auto) 0.0 WBC Differential . Differential Comment Auto diff final Sodium 141 Potassium 4.3 Chloride 104 Carbon Dioxide 24.6 Anion Gap 12 BUN 78 H Creatinine 4.00 H Estimated GFR 14 L Random Glucose 126 H Lactic Acid Calcium 9.1 Phosphorus Albumin Urine Color Yellow Urine Clarity Hazy H Urine pH 5.0 Ur Specific [place] 1.015 Urine Protein Negative Urine Glucose (UA) Negative Urine Ketones Negative Urine Occult Blood Large H Urine Nitrate Negative Urine Bilirubin Negative Urine Urobilinogen Less than 2 Ur Leukocyte Esterase Negative Urine RBC 33 H Urine WBC 1 Urine Mucus Few H Ur Microscopic Review Not Reportable Random Vancomycin 06/30/18 07/01/18 07/01/18 09:36 04:02 04:02 WBC 8.5 RBC 3.51 L Hgb 10.4 L Hct 30.6 L MCV 87.2 MCH 29.8 MCHC 34.1 RDW 15.0 Plt Count 141 L MPV 9.4 Neut % (Auto) 79.3 H Lymph % (Auto) 11.0 [place] % (Auto) 9.0 H Eos % (Auto) 0.4 Baso % (Auto) 0.3 Neut # (Auto) 6.8 Lymph # (Auto) 0.9 L [place] # (Auto) 0.8 Eos # (Auto) 0.0 Baso # (Auto) 0.0 WBC Differential . Differential Comment Auto diff final Sodium 146 H Potassium 3.6 Chloride 112 H D Carbon Dioxide 23.7 Anion Gap 10 BUN 69 H Creatinine 1.54 H Estimated GFR 43 L Random Glucose 87 Lactic Acid 1.7 Calcium 8.6 Phosphorus 2.6 Albumin 2.9 L Urine Color Urine Clarity Urine pH Ur Specific [place] Urine Protein Urine Glucose (UA) Urine Ketones Urine Occult Blood Urine Nitrate Urine Bilirubin Urine Urobilinogen Ur Leukocyte Esterase Urine RBC Urine WBC Urine Mucus Ur Microscopic Review Random Vancomycin 7.1 07/02/18 07/02/18 05:12 05:12 WBC 4.8 RBC 3.43 L Hgb 10.2 L Hct 30.1 L MCV 87.8 MCH 29.7 MCHC 33.8 RDW 14.8 Plt Count 144 L MPV 8.8 Neut % (Auto) 68.5 Lymph % (Auto) 17.8 [place] % (Auto) 10.2 H Eos % (Auto) 3.0 Baso % (Auto) 0.5 Neut # (Auto) 3.3 Lymph # (Auto) 0.9 L [place] # (Auto) 0.5 Eos # (Auto) 0.1 Baso # (Auto) 0.0 WBC Differential . Differential Comment Auto diff final Sodium 144 Potassium 3.4 L Chloride 110 H Carbon Dioxide 29.0 Anion Gap 5 BUN 41 H Creatinine 0.91 Estimated GFR 79 L Random Glucose 90 Lactic Acid Calcium 8.2 L Phosphorus 1.8 L Albumin 2.8 L Urine Color Urine Clarity Urine pH Ur Specific [place] Urine Protein Urine Glucose (UA) Urine Ketones Urine Occult Blood Urine Nitrate Urine Bilirubin Urine Urobilinogen Ur Leukocyte Esterase Urine RBC Urine WBC Urine Mucus Ur Microscopic Review Random Vancomycin Result Diagrams: 07/02/18 05:12 07/02/18 05:12 Microbiology: Microbiology 06/30/18 10:53 Gram Stain - Final Abscess - Arm Wound Culture - Final Group A beta Strep S. aureus MRSA Imaging: Head CT 06/22/18 20:28 CONCLUSION: 1. No acute intracranial abnormalities. . Forearm X-Ray 06/26/18 00:00 CONCLUSION: No acute bony abnormality. Lumbar Spine X-Ray 06/26/18 00:00 CONCLUSION: Advanced degenerative disc disease with minimal degenerative listhesis as above. No acute fracture. Mild scoliosis. Thoracic Spine X-Ray 06/26/18 00:00 CONCLUSION: Moderate to advanced degenerative disc disease with mild kyphoscoliosis. Abdomen/Bladder Ultrasound 06/30/18 00:00 CONCLUSION: 1. Echogenic renal cortex without evidence of hydronephrosis suggesting underlying medical renal disease. Chest X-Ray 06/30/18 00:00 CONCLUSION: No acute cardiopulmonary abnormality is identified. Patient/Family Conference Present at Family Conference: Met with patient at bedside. Family Conference Time: 35 Family Conference Location: Bedside Issues Discussed: * Palliative care role, purpose, approach * Additional medical, psychosocial, and spiritual history * Patients general health, functional status, and cognitive changes in the months leading up to the current hospitalization * Patient/family understanding of the current medical problems * Patient/family understanding of prognosis * Patients goals of care as best understood from advance directives and/or conversations and/or values * Current medical treatment options and benefits/burdens of those options * Likely scenarios comparing ongoing aggressive care with a transition to comfort measures only * Questions answered to the best of my ability * Palliative care contact information provided In summary, he is confused. He is able to answer some questions appropriately. He does not know he is in the hospital. I am unable to verify his history per EMR review. Notes indicate family does not wish to be contacted, would recommend ACCURINT search as he has possible additional family. Assessment and Plan - Disease Oriented Problem List (1) Alzheimers disease (2) UTI (urinary tract infection) (3) PEDRO PABLO (acute kidney injury) (4) Hypertension - Symptom Scale (1) Confusion 0-10 Scale: Unable to quantify Pertinent Non-Medical Issues: Psychosocial: . Born in [place]. [place]. He states he had 5 children, 1 . Spiritual: Unknown. Legal: Patient is not capacitated to make his own health care decisions, not expected to regain capacity given Alzheimer's disease. No known written advanced directives. Will ask case management to contact [facility] to see if he has any on file. Patient states he has 4 living children (Herman, Rakesh and Jeanie possible names), uncertain if this is accurate. According to [place] statutes, health care proxy decision making falls to the majority of adult children if no written advance directives. Ethical issues impacting care: No known concerns at this time. Important Contacts: * Rakesh Churchill, son: no contact info found. * Herman Churchill, son: no contact info found * Jeanie, daughter: no contact info found * Duke Churchill, grandson: [phone] * Nisha Man, grandchild: [phone] Prognosis: Patient appears hospice appropriate given Alzheimers (not end stage), advanced age, severe malnutrition (weight 129 pounds, temporal and muscle wasting) and overall debility (he is unable to sit up in the bed without full assist). Code Status: Full Code Plan: * Patient is not capacitated to make his own health care decisions, not expected to regain capacity given Alzheimer's disease. No known written advanced directives. Will ask case management to contact [facility] to see if he has any on file. Patient states he has 4 living children (Herman, Rakesh and Jeanie possible names), uncertain if this is accurate. According to [place] statutes, health care proxy decision making falls to the majority of adult children if no written advance directives. * FULL CODE * Goals: DCF is involved as family does not reportedly want to be involved in his care (I did not speak with family). Plan for DC to [facility] on 07/03/18 per returned case inspector notes. May need ACCURINT search if no written advance directives found with [facility]. Patient appears hospice appropriate given Alzheimers ( not end stage), advanced age, severe malnutrition (weight 129 pounds, severe temporal and muscle wasting) and overall debility (he is unable to sit up in the bed without full assist). Will need to identify legal health care proxy before this can be considered. It is reasonable to monitor patient in SNF setting as he may have some potential for improvement with proper care. * SYMPTOMS: Confusion: secondary to underlying Alzheimer's disease, may be at baseline mentation. Debility: profound weakness, cachexia. Plan appears fro DC to SNF on 07/03. * Palliative care will continue to follow to assist with symptom management and clarification of goals of medical treatment. Appreciation Thank you for the opportunity to participate in the care of Del García. Attestation Attestation: To help prompt me to consider important information that might be impacting today's encounter and assessment, information from prior notes written by myself or my colleagues may have been "brought forward" into today's note. My signature on this note, however, is an attestation that I personally performed the exam, history, and/or decision-making noted today, and, unless otherwise indicated, the interactions with patient, family, and staff as well as the review of records all occurred today. I also attest that the listed assessment and stated plan reflect my best clinical judgment today based on the combination of historical information, prior notes, and today's exam/ interactions. When time spent is documented, it refers only to time spent today by the signer, or if indicated, combined time spent today by collaborating physician/nurse practitioner.
--- NOTE | 2018-07-02 11:36 | P.PNIM ---
Subjective Interval history: Patient is awake, alert. He currently does not have any complaints. Physical Exam Vital signs: Vital Signs 07/01/18 12:00 07/01/18 16:00 07/01/18 19:59 Temperature 97.4 F L 97.5 F L 97.8 F Pulse Rate 62 70 66 Respiratory Rate 18 17 19 Blood Pressure 150/65 H 163/70 H 155/66 H Pulse Oximetry 91 L 94 L 96 07/02/18 00:00 07/02/18 08:00 Temperature 97.8 F 97.7 F Pulse Rate 58 L 56 L Respiratory Rate 19 14 Blood Pressure 153/66 H 136/62 Pulse Oximetry 95 99 Intake & Output 07/01/18 07/02/18 07/02/18 18:59 06:59 18:59 Intake Total 2065 / 2065 1180 / 1180 250 / 250 Output Total 1600 / 1600 680 / 680 Balance 465 / 465 500 / 500 250 / 250 Weight 59 kg Intake: IV 1750 / 1750 1000 / 1000 100 / 100 NS Inj 1,000 ML @ 125 mls/hr IV 1400 / 1400 .CONT .Q8H [facility] Rx#:[id number] 1/2 Normal Saline Inj 1,000 ML 1000 / 1000 @ 84 mls/hr IV.CONT .[id number] [facility] Rx#:[id number] Vancomycin Inj 1,000 MG In NS 250 / 250 Inj 250 ML @ 250 mls/hr IV.SIG Q24H [facility] Rx#:[id number] Rocephin Inj 2,000 MG In NS Inj 100 / 100 100 / 100 100 ML @ 200 mls/hr IV.SIG Q24H [facility] Rx#:[id number] Oral 315 / 315 180 / 180 150 / 150 Output: Urine 1600 / 1600 Urine Amount (Catheter) 680 / 680 Indwelling Urethral Catheter 680 / 680 Other: Date of Last Bowel Movement 06/28/18 # Bowel Movements 0 Narrative: General patient in no acute distress. He is alert and oriented x1, to person only. HEENT extraocular movements are intact, clear oropharyngeal mucosa, no JVD Cardiovascular S1-S2 audible, RRR, no murmurs rubs or gallops Respiratory clear to auscultation bilaterally Abdomen soft, nontender, nondistended, normal bowel sounds, Garza catheter in place. Extremities no edema 2+ distal pulses in bilateral upper and lower extremities Neuro patient moves all 4 of his extremities sensation is intact bilaterally. - Urinary Catheter Management Straight Cath placed during this visit: yes, but has since been removed by the nurse Reason for continuing: Acute urinary retention Insertion date: 06/30/18 Insertion time: 09:03 Removal date: 06/22/18 Removal time: 22:43 Indwelling Urethral Catheter Cath placed during this visit: no Reason for continuing: Hourly intake/output Results - Labs CBC & Chem 7: 07/02/18 05:12 07/02/18 05:12 Laboratory Results - last 24 hr 07/02/18 07/02/18 05:12 05:12 WBC 4.8 RBC 3.43 L Hgb 10.2 L Hct 30.1 L MCV 87.8 MCH 29.7 MCHC 33.8 RDW 14.8 Plt Count 144 L MPV 8.8 Neut % (Auto) 68.5 Lymph % (Auto) 17.8 [place] % (Auto) 10.2 H Eos % (Auto) 3.0 Baso % (Auto) 0.5 Neut # (Auto) 3.3 Lymph # (Auto) 0.9 L [place] # (Auto) 0.5 Eos # (Auto) 0.1 Baso # (Auto) 0.0 WBC Differential . Differential Comment Auto diff final Sodium 144 Potassium 3.4 L Chloride 110 H Carbon Dioxide 29.0 Anion Gap 5 BUN 41 H Creatinine 0.91 Estimated GFR 79 L Random Glucose 90 Calcium 8.2 L Phosphorus 1.8 L Albumin 2.8 L Microbiology 06/30/18 10:53 Abscess - Arm Gram Stain - Final 06/30/18 10:53 Abscess - Arm Wound Culture - Final Group A beta Strep S. aureus MRSA - Procedures Garza Catheter placed on 06/30/2018. Assessment and Plan - Assessment (1) Dementia Code(s): F03.90 - Status: Chronic (2) UTI (urinary tract infection) Code(s): N39.0 - Status: Acute (3) PEDRO PABLO (acute kidney injury) Code(s): N17.9 - Status: Acute - Plan This patient is an 88-year-old male with a diagnosis of Alzheimer's dementia. The patient was initially brought into the emergency department under a Ngo's act after the police found the patient wandering in the streets and was found to be suicidal. He was evaluated by psychiatry and noted to not be suicidal and the Ngo's act was lifted. An attempt was made to discharge the patient however the patient's family is not willing to take the patient back home. 1. Acute encephalopathy likely from progression of Alzheimer's dementia Currently alert and oriented x1, to person only. The patient's urinalysis did not show any findings consistent with a urinary tract infection. He has received 3 days of IV antibiotics, the antibiotics will be discontinued. Chest x-ray is normal. CT head does not show any acute findings. Patient is afebrile with a resolution in his leukocytosis. If the patient spikes a fever he will be restarted on the antibiotics. I will attempt to discuss the patient's condition with his family members to establish a baseline mental status. We will discuss the case with case management as far as placement when the patient is ready for discharge. 2. Left arm wound Continue wound care, continue IV antibiotics. Will follow up with recommendations from infectious disease. 3. Acute kidney injury possibly secondary to urinary retention. Nephrology following. Garza catheter is in place. Serum creatinine has now normalized. Continue Flomax. Avoid nephrotoxins. 4. Hypertension Continue current medications. His systolic pressure from this morning was in the 130s. His blood pressure medications will be adjusted as needed. Full code. SCDs for DVT prophylaxis. (1) Dementia Qualifiers: Dementia type: Alzheimer's disease Alzheimer's disease onset: late-onset Dementia behavioral disturbance: with behavioral disturbance Qualified Code(s) : G30.1 - Alzheimer's disease with late onset; F02.81 - Dementia in other diseases classified elsewhere with behavioral disturbance
[2018-07-02] MEDS: Vancomycin Inj 1,000 MG in Sodium Chlor 0.9% Inj 250 ML IV.SIG SCH (12:02)
[2018-07-02] MEDS: Ferrous Sulfate 325 MG Tablet PO SCH ×2 (12:03→16:57)
--- NOTE | 2018-07-02 12:27 | P.CONID ---
History of Present Illness Service: Infectious Disease Consult date: 07/02/18 Requesting Physician: Janey Layton Reason for Consult: Evaluate patient with MRSA in wound Primary Care Provider: UNKNOWN Chief Complaint: "I'm very happy" History of Present Illness: Patient seen and examined. Records reviewed. Patient is an 88-year-old male with PMH of Alzheimer's Dementia was brought to the ER under Ngo Act by Police secondary to suicidal ideation. Psych evaluated patient and lifted Ngo Act. patient has been in the hospital since due to placement issues. He had fallen about 5 days ago and had a wound on his L elbow. It was noted to have some purulence several days ago and C/S was done which grew GAS and MRSA. Patient has received Macrobid for UTI when he came in. Repeat UA ok. he has developed urinar retention and has a song now placed 06/30. he is afebrile. he is confused. Infectious Disease consultation has been requested to make recommendations regarding his (+) wound C/S. Review of Systems unobtainable due to mental status PMFSH - History History Provided By: Patient, Medical Record - Medical History Medical History: Medical History (Last Reviewed 07/02/18 @ 12:23 by Margarita Sandoval MD) Alzheimer disease - Tobacco History Second Hand Smoke Exposure: No Tobacco Use In Past 30 Days: No Smoking Status: Never smoker - Alcohol History How Often Do You Have a Drink Containing Alcohol: Never - Substance Use History Substance History: No History of Abuse - Travel History Recent Travel in the [place] Within the Last 8 Weeks: No Recent Travel Out of the Country Within the Last 8 Weeks: No - Immunization History Tetanus Immunization: Unable to Assess Hx Influenza Vaccine This Season: Unable to Assess Medications and Allergies Active Medications: Active Medications Al Hydroxide/Mg Hydroxide (Milk Of Magnbreanna Liq) 30 ml PO Q12H PRN PRN Reason: Mild Constipation Amlodipine Besylate (Norvasc) 10 mg PO DAILY [facility] Last Admin: 07/02/18 08:33 Dose: 10 mg Bisacodyl (Dulcolax Supp) 10 mg RECTAL DAILY PRN PRN Reason: SEVERE CONSITIPATION Collagenase (Santyl Oint) 1 applicatio TOPICAL DAILY [facility] Ferrous Sulfate (Ferosul) 325 mg PO BID@1200,1700 [facility] Last Admin: 07/02/18 12:03 Dose: 325 mg Sodium Chloride (1/2 Normal Saline Inj) 1,000 mls @ 84 mls/hr IV.CONT .[id number] [facility] Last Admin: 07/02/18 12:03 Dose: 84 mls/hr Lactulose (Lactulose Liq) 30 ml PO DAILY PRN PRN Reason: SEVERE CONSITIPATION Metoprolol Tartrate (Lopressor) 25 mg PO BID [facility] Last Admin: 07/02/18 08:33 Dose: 25 mg Miscellaneous Information ([facility] Ordered Lab Info) 0 each OTHER ONCE ONE Stop: 07/03/18 11:46 Senna/Docusate Sodium (Jenn-Colace) 1 tab PO BID [facility] Last Admin: 07/02/18 08:33 Dose: 1 tab Sennosides (Senokot) 17.2 mg PO Q12H PRN PRN Reason: Moderate Constipation Sodium Chloride (Ns Flush) 2 ml IV.FLUSH BID [facility] Last Admin: 07/02/18 08:33 Dose: Not Given Sodium Chloride (Ns Flush) 2 ml IV.FLUSH PRN PRN PRN Reason: FLUSH AFTER USING IV ACCESS Tamsulosin HCl (Flomax) 0.4 mg PO DAILY [facility] Last Admin: 07/02/18 08:33 Dose: 0.4 mg Allergies Allergy/AdvReac Type Severity Reaction Status Date / Time lisinopril Allergy Severe tounge Verified 06/22/18 20:19 swelling Exam Vital signs: Vital Signs 07/01/18 16:00 07/01/18 19:59 07/02/18 00:00 Temperature 97.5 F L 97.8 F 97.8 F Pulse Rate 70 66 58 L Respiratory Rate 17 19 19 Blood Pressure 163/70 H 155/66 H 153/66 H Pulse Oximetry 94 L 96 95 07/02/18 08:00 07/02/18 12:00 Temperature 97.7 F 97.2 F L Pulse Rate 56 L 57 L Respiratory Rate 14 16 Blood Pressure 136/62 158/68 H Pulse Oximetry 99 96 Intake & Output 07/01/18 07/02/18 07/02/18 18:59 06:59 18:59 Intake Total 2065 / 2065 1180 / 1180 1250 / 1250 Output Total 1600 / 1600 680 / 680 Balance 465 / 465 500 / 500 1250 / 1250 Weight 59 kg Intake: IV 1750 / 1750 1000 / 1000 1100 / 1100 NS Inj 1,000 ML @ 125 mls/hr IV 1400 / 1400 .CONT .Q8H [facility] Rx#:[id number] 1/2 Normal Saline Inj 1,000 ML 1000 / 1000 1000 / 1000 @ 84 mls/hr IV.CONT .[id number] [facility] Rx#:[id number] Vancomycin Inj 1,000 MG In NS 250 / 250 Inj 250 ML @ 250 mls/hr IV.SIG Q24H [facility] Rx#:[id number] Rocephin Inj 2,000 MG In NS Inj 100 / 100 100 / 100 100 ML @ 200 mls/hr IV.SIG Q24H [facility] Rx#:[id number] Oral 315 / 315 180 / 180 150 / 150 Output: Urine 1600 / 1600 Urine Amount (Catheter) 680 / 680 Indwelling Urethral Catheter 680 / 680 Other: Date of Last Bowel Movement 06/28/18 # Bowel Movements 0 Narrative: Physical Examination GENERAL: Patient is a well-nourished, well-developed male, awake and alert, confused, not in respiratory distress. SKIN: Cool and dry. No generalized rash. Has some scattered ecchymoses. HEAD: Atraumatic. Normocephalic. No temporal wasting, or tenderness. EYES: Latty conjunctiva. No petechia or hemorrhage. Pupils equal, round and reactive to light. Extraocular movements full and intact. No scleral icterus. He has scleral hemorrhage in lower L eye EARS, NOSE AND THROAT: Nose without bleeding or purulent nasal discharge. No sinus tenderness. Mucous membranes pink and moist. No oral lesions noted. No exudate. No oral thrush. NECK: Trachea midline. Supple and not tender, no meningeal signs CARDIOVASCULAR: Regular rate and rhythm. No murmurs, rubs or gallops heard RESPIRATORY: Clear to auscultation. Breath sounds equal bilaterally. No rales , wheezing or rhonchi ABDOMEN: Soft, non-tender, nondistended. Bowel sounds present and normoactive. No guarding. No rebound. No organomegaly. EXTREMITIES: No clubbing, cyanosis, or edema. No joint effusion, has good ROM. No calf tenderness. There is a wound on his L elbow about 1 x 0.5 inch with crusted scab, no periwound erythema/cellulitis. L elbow is not swollen, no redness, good ROM. Well perfused and warm. NEUROLOGICAL: Awake and alert. Cranial nerves grossly intact. Motor grossly within normal limits. Confused PSYCHIATRIC: calm and cooperative. LINE: No evidence of infection Results - Labs CBC & Chem 7: 07/02/18 05:12 07/02/18 05:12 Labs: Laboratory Results - last 24 hr 07/02/18 07/02/18 05:12 05:12 WBC 4.8 RBC 3.43 L Hgb 10.2 L Hct 30.1 L MCV 87.8 MCH 29.7 MCHC 33.8 RDW 14.8 Plt Count 144 L MPV 8.8 Neut % (Auto) 68.5 Lymph % (Auto) 17.8 [place] % (Auto) 10.2 H Eos % (Auto) 3.0 Baso % (Auto) 0.5 Neut # (Auto) 3.3 Lymph # (Auto) 0.9 L [place] # (Auto) 0.5 Eos # (Auto) 0.1 Baso # (Auto) 0.0 WBC Differential . Differential Comment Auto diff final Sodium 144 Potassium 3.4 L Chloride 110 H Carbon Dioxide 29.0 Anion Gap 5 BUN 41 H Creatinine 0.91 Estimated GFR 79 L Random Glucose 90 Calcium 8.2 L Phosphorus 1.8 L Albumin 2.8 L Assessment and Plan - Plan Impression (+) wound C/S L elbow, MRSA and MSSA, colonization, local infection, no cellulitis Dementia Urinary retention Hematuria, resolved Recommendation Stop systemic Abx Wound care and place santyl to wound Monitor for S/Sxs of new infection Thank you for this consultation Please call if with any new ID issue or question
--- NOTE | 2018-07-02 12:49 | P.PNNP ---
Subjective Interval history: Pleasantly confused. Creatinine has improved at 0.91 today <Lyn Dominguez - Last Filed: 07/02/18 12:44> Physical Exam Vital signs: Vital Signs 07/01/18 16:00 07/01/18 19:59 07/02/18 00:00 Temperature 97.5 F L 97.8 F 97.8 F Pulse Rate 70 66 58 L Respiratory Rate 17 19 19 Blood Pressure 163/70 H 155/66 H 153/66 H Pulse Oximetry 94 L 96 95 07/02/18 08:00 07/02/18 12:00 Temperature 97.7 F 97.2 F L Pulse Rate 56 L 57 L Respiratory Rate 14 16 Blood Pressure 136/62 158/68 H Pulse Oximetry 99 96 Intake & Output 07/01/18 07/02/18 07/02/18 18:59 06:59 18:59 Intake Total 2065 / 2065 1180 / 1180 1250 / 1250 Output Total 1600 / 1600 680 / 680 Balance 465 / 465 500 / 500 1250 / 1250 Weight 59 kg Intake: IV 1750 / 1750 1000 / 1000 1100 / 1100 NS Inj 1,000 ML @ 125 mls/hr IV 1400 / 1400 .CONT .Q8H [facility] Rx#:[id number] 1/2 Normal Saline Inj 1,000 ML 1000 / 1000 1000 / 1000 @ 84 mls/hr IV.CONT .[id number] [facility] Rx#:[id number] Vancomycin Inj 1,000 MG In NS 250 / 250 Inj 250 ML @ 250 mls/hr IV.SIG Q24H [facility] Rx#:[id number] Rocephin Inj 2,000 MG In NS Inj 100 / 100 100 / 100 100 ML @ 200 mls/hr IV.SIG Q24H [facility] Rx#:[id number] Oral 315 / 315 180 / 180 150 / 150 Output: Urine 1600 / 1600 Urine Amount (Catheter) 680 / 680 Indwelling Urethral Catheter 680 / 680 Other: Date of Last Bowel Movement 06/28/18 # Bowel Movements 0 Narrative: GENERAL: Alert, not oriented. NAD SKIN: Warm and dry. Pale HEAD: Normocephalic. EYES: No scleral icterus. No injection or drainage. NECK: Supple, trachea midline. No JVD or lymphadenopathy. CARDIOVASCULAR: Regular rate and rhythm. RESPIRATORY: Breath sounds equal bilaterally. No accessory muscle use. GASTROINTESTINAL: Abdomen soft, non-tender, nondistended GENITOURINARY: Indwelling Garza catheter MUSCULOSKELETAL: No cyanosis, or edema. BACK: Nontender without obvious deformity. No CVA tenderness. - Urinary Catheter Management Straight Cath placed during this visit: yes, but has since been removed by the nurse Reason for continuing: Acute urinary retention Insertion date: 06/30/18 Insertion time: 09:03 Removal date: 06/22/18 Removal time: 22:43 Indwelling Urethral Catheter Cath placed during this visit: no Reason for continuing: Hourly intake/output <Lyn Dominguez - Last Filed: 07/02/18 12:44> Vital signs: Vital Signs 07/04/18 12:00 07/04/18 16:00 07/04/18 20:00 Temperature 97.4 F L 97.7 F 97.2 F L Pulse Rate 63 65 72 Respiratory Rate 19 18 19 Blood Pressure 146/67 H 147/65 H 110/54 L Pulse Oximetry 98 98 07/05/18 00:00 07/05/18 08:00 Temperature 97.5 F L 97.2 F L Pulse Rate 68 77 Respiratory Rate 22 17 Blood Pressure 155/60 H 155/108 H Pulse Oximetry 99 100 Intake & Output 07/04/18 07/05/18 07/05/18 18:59 06:59 18:59 Intake Total 1340 / 1340 1220 / 1220 950 / 950 Output Total 1500 / 1500 550 / 550 Balance -160 / -160 670 / 670 950 / 950 Intake: IV 1100 / 1100 1000 / 1000 950 / 950 1/2 Normal Saline Inj 1,000 ML 1000 / 1000 1000 / 1000 950 / 950 @ 84 mls/hr IV.CONT .[id number] [facility] Rx#:[id number] Rocephin Inj 1,000 MG In NS Inj 100 / 100 100 ML @ 200 mls/hr IV.SIG Q24H [facility] Rx#:[id number] Oral 240 / 240 220 / 220 Output: Urine 550 / 550 Urine Amount (Catheter) 1500 / 1500 Indwelling Urethral Catheter 1500 / 1500 - Urinary Catheter Management Straight Cath placed during this visit: no Indwelling Urethral Catheter Cath placed during this visit: no <Liza Knight - Last Filed: 07/05/18 10:33> Assessment and Plan - Assessment (1) PEDRO PABLO (acute kidney injury) Code(s): N17.9 - Status: Acute Plan: Acute kidney injury with a creatinine of 1.22 that increased to 4.0 on day of consult. Acute kidney injury, post renal from urinary retention. Urine with large hematuria, mild proteinuria. Renal ultrasound with echogenic renal cortex without evidence of hydronephrosis suggesting underlying medical renal disease. Plan Avoid nephrotoxins including NSAIDS, IV contrast, and aminoglycosides Monitor strict I+O On IVF's, discontinue when taking PO well Maintain indwelling Garza catheter for retention. Continue Flomax Hypokalemia at 3.4 and hypophosphatemia, will order K phos IV X1 With creatinine returning to normal Nephrology will sign off and see PRN (2) UTI (urinary tract infection) Code(s): N39.0 - Status: Acute Plan: On antibiotics (3) Hypertension Code(s): I10 - Status: Acute Plan: Continue amlodipine and metoprolol Will monitor <Lyn Dominguez - Last Filed: 07/02/18 12:44> - Assessment (1) PEDRO PABLO (acute kidney injury) Code(s): N17.9 - Acute kidney failure, unspecified Status: Acute Plan: Patient seen and examined, agree with above. Creatinine is better, K and Po4 replaced. Will sign off from Nephrology, see if needed. (2) UTI (urinary tract infection) Code(s): N39.0 - Urinary tract infection, site not specified Status: Acute (3) Hypertension Code(s): I10 - Essential (primary) hypertension Status: Acute <Liza Knight - Last Filed: 07/05/18 10:33>
--- NOTE | 2018-07-02 14:52 | P.PNWCN ---
Wound Care Nurse Consult Description: Wound consult ordered by for wound management. Communicated with: Lisha TAVAREZ Recommendation: Please refer to wound care guidelines for skin tears. Additional information: Patient was not seen today per Lisha TAVAREZ versatel placed on skin tears dry intact.
[2018-07-02] MEDS ORDERED: Potassium Phosphate Inj 30 MMOL in Sodium Chlor 0.9% Inj 250 ML IV.SIG ONE (15:00)
[2018-07-02] MEDS: Collagenase Oint 30 GM Tube TOPICAL SCH ×2 (15:42→16:57)
[2018-07-03] MEDS: Sodium Chloride 0.45 % Inj 1,000 ML IV.CONT SCH ×3 (00:45→22:55)
[2018-07-03] MEDS: Senna/Docusate Sodium 8.6/50 MG Tablet PO SCH ×2 (09:17→20:20)
[2018-07-03] MEDS: Sodium Chloride 0.9% 2 ML Flush BID IV.FLUSH SCH ×2 (09:17→20:20)
[2018-07-03] MEDS: amLODIPine 10 MG Tablet PO SCH (09:17)
[2018-07-03] MEDS: Metoprolol Tartrate 25 MG Tablet PO SCH ×2 (09:17→20:20)
--- NOTE | 2018-07-03 11:08 | P.PNPAL ---
Copy of written advance directives (Living Will with Health Care surrogate designation) received from [place]. Living Will indicates he would not want life sustaining treatments or measures in unconscious, coma, vegetative state with little or no chance of meaningful recovery, severe dementia unable to recognize family, a permanent condition that makes me completely dependent on others for daily needs (eating, toileting, bathing), confined to bed and need a breathing machine for the rest of my life, pain or other symptoms that cannot be relieved or a condition that would cause him to soon. Primary designated health care agent, Mark Clay. Attempted to call, no answer phone rings without opportunity to leave voicemail. Alternate health care agent, Herman García. Left message with his to request return call to provide medical update. Awaiting return call.
[2018-07-03] MEDS ORDERED: Pharmacy Ordered Lab Info OTHER ONE (11:45)
[2018-07-03] MEDS: Ferrous Sulfate 325 MG Tablet PO SCH ×2 (12:22→16:47)
[2018-07-03] MEDS: Collagenase Oint 30 GM Tube TOPICAL SCH (12:59)
--- NOTE | 2018-07-03 15:46 | P.PNIM ---
Subjective Interval history: Patient is awake and alert. He responds to my questions however is difficult to understand. Patient is following simple commands. Physical Exam Vital signs: Vital Signs 07/02/18 16:00 07/02/18 20:00 07/02/18 23:27 Temperature 97.8 F 97.8 F 97.6 F Pulse Rate 60 66 60 Respiratory Rate 18 18 19 Blood Pressure 158/67 H 119/56 L 102/56 L Pulse Oximetry 96 98 100 07/03/18 08:00 07/03/18 12:00 Temperature 97.5 F L 97.2 F L Pulse Rate 62 58 L Respiratory Rate 16 16 Blood Pressure 131/61 109/55 L Pulse Oximetry 94 L 100 Intake & Output 07/02/18 07/03/18 07/03/18 18:59 06:59 18:59 Intake Total 2100 / 2100 1260 / 1260 1000 / 1000 Output Total 850 / 850 1225 / 1225 Balance 1250 / 1250 35 / 35 1000 / 1000 Weight 63.3 kg Intake: IV 1350 / 1350 1260 / 1260 1000 / 1000 1/2 Normal Saline Inj 1,000 ML 1000 / 1000 1000 / 1000 1000 / 1000 @ 84 mls/hr IV.CONT .[id number] COUNT INCLUDES [facility] Rx#:[id number] Potassium Phosphate Inj 30 MMOL 260 / 260 In NS Inj 250 ML @ 43.333 mls/ hr IV.SIG ONCE ONE Rx#:[id number] Vancomycin Inj 1,000 MG In NS 250 / 250 Inj 250 ML @ 250 mls/hr IV.SIG Q24H COUNT INCLUDES THE [facility] Rx#:[id number] Rocephin Inj 2,000 MG In NS Inj 100 / 100 100 ML @ 200 mls/hr IV.SIG Q24H COUNT INCLUDES [facility] Rx#:[id number] Oral 750 / 750 Output: Urine 850 / 850 Urine Amount (Catheter) 1225 / 1225 Indwelling Urethral Catheter 1225 / 1225 Other: # Voids 1 Narrative: General patient in no acute distress. He is alert and oriented x1, to person only. HEENT extraocular movements are intact, clear oropharyngeal mucosa, no JVD Cardiovascular S1-S2 audible, RRR, no murmurs rubs or gallops Respiratory clear to auscultation bilaterally Abdomen soft, nontender, nondistended, normal bowel sounds, Garza catheter in place. Extremities no edema 2+ distal pulses in bilateral upper and lower extremities Neuro patient moves all 4 of his extremities sensation is intact bilaterally. - Urinary Catheter Management Straight Cath placed during this visit: yes, but has since been removed by the nurse Reason for continuing: Acute urinary retention Insertion date: 06/30/18 Insertion time: 09:03 Removal date: 06/22/18 Removal time: 22:43 Indwelling Urethral Catheter Cath placed during this visit: no Reason for continuing: Acute urinary retention Results - Labs CBC & Chem 7: 07/02/18 05:12 07/02/18 05:12 Laboratory Results - last 24 hr 07/03/18 09:37 POC Glucose 105 - Procedures Garza Catheter placed on 06/30/2018. Assessment and Plan - Assessment (1) Dementia Code(s): F03.90 - Unspecified dementia without behavioral disturbance Status: Chronic (2) UTI (urinary tract infection) Code(s): N39.0 - Urinary tract infection, site not specified Status: Acute (3) PEDRO PABLO (acute kidney injury) Code(s): N17.9 - Acute kidney failure, unspecified Status: Acute - Plan This patient is an 88-year-old male with a diagnosis of Alzheimer's dementia. The patient was initially brought into the emergency department under a Ngo's act after the police found the patient wandering in the streets and was found to be suicidal. He was evaluated by psychiatry and noted to not be suicidal and the Ngo's act was lifted. An attempt was made to discharge the patient however the patient's family is not willing to take the patient back home. 1. Acute encephalopathy likely from progression of Alzheimer's dementia No change in the patient's mental status. Currently alert and oriented x1, to person only. The patient's urinalysis did not show any findings consistent with a urinary tract infection. He has received 3 days of IV antibiotics, the antibiotics will be discontinued. Chest x-ray is normal. CT head does not show any acute findings. Patient is afebrile with a resolution in his leukocytosis. Patient is tolerating a p.o. diet. If the patient spikes a fever he will be restarted on the antibiotics. No fevers over the past 24 hours. I asked the nurse to notify me if the patient's family members show up to the hospital to have a discussion with them regarding the patient's current condition. 2. Left arm wound Continue wound care, continue IV antibiotics. Will follow up with recommendations from infectious disease. 3. Acute kidney injury possibly secondary to urinary retention. Nephrology following. Garza catheter is in place. Serum creatinine has now normalized. Continue Flomax. Avoid nephrotoxins. 4. Hypertension Continue current medications. His systolic pressure from this morning was in the 130s. His blood pressure medications will be adjusted as needed. Full code. SCDs for DVT prophylaxis. (1) Dementia Qualifiers: Dementia type: Alzheimer's disease Alzheimer's disease onset: late-onset Dementia behavioral disturbance: with behavioral disturbance Qualified Code(s) : G30.1 - Alzheimer's disease with late onset; F02.81 - Dementia in other diseases classified elsewhere with behavioral disturbance
[2018-07-04] MEDS: Sodium Chloride 0.45 % Inj 1,000 ML IV.CONT SCH ×3 (03:14→21:41)
[2018-07-04 08:43] LABS: Calcium 8.8 mg/dL (8.5-10.1); Carbon Dioxide 27.7 meq/L (21.0-32.0); Magnesium 2.2 mg/dL (1.5-2.5); Potassium 3.6 meq/L (3.5-5.1)
[2018-07-04] MEDS: Sodium Chloride 0.9% 2 ML Flush BID IV.FLUSH SCH ×2 (08:49→21:40)
[2018-07-04] MEDS: Collagenase Oint 30 GM Tube TOPICAL SCH (08:49)
[2018-07-04] MEDS: Metoprolol Tartrate 25 MG Tablet PO SCH ×2 (08:49→21:36)
[2018-07-04] MEDS: Senna/Docusate Sodium 8.6/50 MG Tablet PO SCH ×2 (08:49→21:36)
[2018-07-04] MEDS: amLODIPine 10 MG Tablet PO SCH (08:49)
[2018-07-04] MEDS: Ferrous Sulfate 325 MG Tablet PO SCH ×2 (12:27→17:23)
--- NOTE | 2018-07-04 14:11 | P.PNPAL ---
Palliative care notified of contact with patient's son by attending MD. Follow up phone call with son Herman. Herman indicates he wishes to honor his father's living will indicating he would not want his life prolonged by artificial means. Elected DNR/DNI status. Palliative care CRITICAL CARE NURSE SPECIALIST informed, code status changed. Briefly discussed community DNR form with son. Form emailed to him ([email or web address]) for his signature and request to send back. Copy will be faxed to HIM to be scanned into EMR and original yellow copy to be sent to SNF upon discharge. Palliative care will continue to follow throughout hospitalization.
--- NOTE | 2018-07-04 20:19 | P.PNIM ---
Subjective Interval history: Patient is awake and alert. He is alert and oriented x1. Tolerating a p.o. diet with assistance. He does not appear to be in any acute distress. Physical Exam Vital signs: Vital Signs 07/04/18 00:00 07/04/18 08:00 07/04/18 12:00 Temperature 98.1 F 97.4 F L 97.4 F L Pulse Rate 62 67 63 Respiratory Rate 17 17 19 Blood Pressure 144/97 H 180/69 H 146/67 H Pulse Oximetry 99 94 L 07/04/18 16:00 07/04/18 20:00 Temperature 97.7 F 97.2 F L Pulse Rate 65 72 Respiratory Rate 18 19 Blood Pressure 147/65 H 110/54 L Pulse Oximetry 98 98 Intake & Output 07/04/18 07/04/18 07/05/18 06:59 18:59 06:59 Intake Total 1580 / 1580 1340 / 1340 Output Total 650 / 650 1500 / 1500 Balance 930 / 930 -160 / -160 Weight 63.3 kg Intake: IV 1100 / 1100 1100 / 1100 1/2 Normal Saline Inj 1,000 ML 1000 / 1000 1000 / 1000 @ 84 mls/hr IV.CONT .[id number] [facility] Rx#:[id number] Rocephin Inj 1,000 MG In NS Inj 100 / 100 100 / 100 100 ML @ 200 mls/hr IV.SIG Q24H [facility] Rx#:[id number] Oral 480 / 480 240 / 240 Output: Urine Amount (Catheter) 650 / 650 1500 / 1500 Indwelling Urethral Catheter 650 / 650 1500 / 1500 Narrative: General patient in no acute distress. He is alert and oriented x1, to person only. HEENT extraocular movements are intact, clear oropharyngeal mucosa, no JVD Cardiovascular S1-S2 audible, RRR, no murmurs rubs or gallops Respiratory clear to auscultation bilaterally Abdomen soft, nontender, nondistended, normal bowel sounds, Garza catheter in place. Extremities no edema 2+ distal pulses in bilateral upper and lower extremities Neuro patient moves all 4 of his extremities sensation is intact bilaterally. - Urinary Catheter Management Straight Cath placed during this visit: yes, but has since been removed by the nurse Reason for continuing: Acute urinary retention Insertion date: 06/30/18 Insertion time: 09:03 Removal date: 06/22/18 Removal time: 22:43 Indwelling Urethral Catheter Cath placed during this visit: no Reason for continuing: Hourly intake/output Results - Labs CBC & Chem 7: 07/02/18 05:12 07/04/18 07:38 Laboratory Results - last 24 hr 07/04/18 07/04/18 07:38 07:38 Sodium 140 Potassium 3.6 Chloride 104 Carbon Dioxide 27.7 Anion Gap 8 BUN 21 H Creatinine 0.92 Estimated GFR 78 L Random Glucose 87 Calcium 8.8 Magnesium 2.2 Ammonia 17 - Procedures Garza Catheter placed on 06/30/2018. Assessment and Plan - Assessment (1) Dementia Code(s): F03.90 - Unspecified dementia without behavioral disturbance Status: Chronic (2) UTI (urinary tract infection) Code(s): N39.0 - Urinary tract infection, site not specified Status: Acute (3) PEDRO PABLO (acute kidney injury) Code(s): N17.9 - Acute kidney failure, unspecified Status: Acute - Plan This patient is an 88-year-old male with a diagnosis of Alzheimer's dementia. The patient was initially brought into the emergency department under a Ngo's act after the police found the patient wandering in the streets and was found to be suicidal. He was evaluated by psychiatry and noted to not be suicidal and the Ngo's act was lifted. An attempt was made to discharge the patient however the patient's family is not willing to take the patient back home. 1. Acute encephalopathy likely from progression of Alzheimer's dementia No change in the patient's mental status. Currently alert and oriented x1, to person only. The patient received IV antibiotics for his urinary tract infection however the patient's mental status did not improve. Chest x-ray is normal. CT head does not show any acute findings. Ammonia level was normal. Neuro consultation has been placed I will follow up with recommendations from neurology. Patient is afebrile with a resolution in his leukocytosis. Patient is tolerating a p.o. diet. If the patient spikes a fever he will be restarted on the antibiotics. No fevers over the past 24 hours. I asked the nurse to notify me if the patient's family members show up to the hospital to have a discussion with them regarding the patient's current condition. 2. Left arm wound Bandage in place. The patient was treated with IV antibiotics. 3. Acute kidney injury possibly secondary to urinary retention. Nephrology following. Garza catheter is in place. Serum creatinine has now normalized. Continue Flomax. Avoid nephrotoxins. 4. Hypertension Continue current medications. His systolic pressure from this morning was in the 130s. His blood pressure medications will be adjusted as needed. CODE STATUS I discussed the case with the patient's son Herman over the phone who is now in charge of the patient's medical decisions. The patients son Herman also spoke to his sister and the patient's ex-. Herman says that the patient's wishes were to not have any aggressive measures performed on him if he were to undergo cardiopulmonary arrest. He requests that the patient's CODE STATUS be changed to DNR/DNI. Their wishes will be respected and the patient's CODE STATUS will be changed to DNR and DNI. SCDs for DVT prophylaxis. (1) Dementia Qualifiers: Dementia type: Alzheimer's disease Alzheimer's disease onset: late-onset Dementia behavioral disturbance: with behavioral disturbance Qualified Code(s) : G30.1 - Alzheimer's disease with late onset; F02.81 - Dementia in other diseases classified elsewhere with behavioral disturbance
--- NOTE | 2018-07-04 20:43 | MB ---
cc: Isaac Vizcarra MD, PhD DATE: 07/04/2018 REASON FOR CONSULTATION: Mental status change. HISTORY OF PRESENT ILLNESS: This is an 88-year-old man who has a history of dementia, Alzheimer disease, was brought to the ER under the Ngo Act for suicidal evaluation. He has been more confused, more agitated and less responsive. He initially had a urinary tract infection and was on Macrobid. Repeat urinalysis showed resolution of the infection. He did develop urinary retention. NEUROLOGIC EXAMINATION: VITAL SIGNS: Blood pressure is 144/97, pulse 60, respirations 17, temperature 98 degrees. HIGHER CORTICAL FUNCTION: He is lethargic, disoriented to date and place, has poor recall. Cannot follow simple commands. Has significant language difficulties. Cranial nerves intact. Motor exam: No focal deficit. NECK: Supple. DIAGNOSTIC DATA: CT scan of the brain is within normal limits. Chest x-ray, no acute changes identified. Thoracic spine x-ray, degenerative arthritis. No fracture is seen. There is kyphoscoliosis present. Lumbar spine x-ray advanced degenerative disk disease. No fracture identified. LABORATORY DATA: White count 7300, hemoglobin 12, hematocrit 35%, platelet count 189,000. Sodium is 146, potassium 3.6, chloride 112, BUN is 69, creatinine 1.54, GFR 43. TSH 1.78. Ammonia 17. IMPRESSION: Alzheimer's dementia with probable metabolic encephalopathy. No further neurologic evaluation at this time. Isaac Vizcarra MD, PhD DOLLY/krista , 07:35 PM , 07:41 PM
[2018-07-05 09:26] VITALS: RESP 17
[2018-07-05] MEDS: amLODIPine 10 MG Tablet PO SCH (10:11)
[2018-07-05] MEDS: Sodium Chloride 0.9% 2 ML Flush BID IV.FLUSH SCH (10:11)
[2018-07-05] MEDS: Metoprolol Tartrate 25 MG Tablet PO SCH (10:11)
[2018-07-05] MEDS: Senna/Docusate Sodium 8.6/50 MG Tablet PO SCH (10:11)
[2018-07-05] MEDS: Collagenase Oint 30 GM Tube TOPICAL SCH (10:13)
[2018-07-05] MEDS: Sodium Chloride 0.45 % Inj 1,000 ML IV.CONT SCH (10:14)
[2018-07-05] MEDS: Ferrous Sulfate 325 MG Tablet PO SCH (11:42)
[2018-07-05 12:10] VITALS: BP 143/65; PULSE 63; TEMP 97.1; O2SAT 99
--- NOTE | 2018-07-05 15:37 | P.DS ---
Date of admission: 06/30/18 14:56 Primary care physician: UNKNOWN Attending physician on discharge: Dr. Layton Brief History from admission: This is an 88-year-old male with PMH of Alzheimer's Dementia was originally brought to the ER under Ngo Act by Police secondary to suicidal ideation. Unable to obtain much history from patient, per report pt had argued w/ family members and left the house, found wandering into traffic by police. S/p eval by Psychiatry, not noted to be suicidal/homicidal and BA lifted. Pt attempted to be discharged, however family not willing to take patient back despite being informed by Officer that DCF would be called. Unable to obtain placement at this time, pending DCF evaluation in the next 24hrs. Of note, pt found to have UTI, started on treatment. DS: Diagnosis - Discharge Diagnosis (1) Dementia Status: Chronic (2) UTI (urinary tract infection) Status: Acute (3) PEDRO PABLO (acute kidney injury) Status: Acute DS: Summary Hospital Course: This patient is an 88-year-old male with a diagnosis of Alzheimer's dementia. The patient was initially brought into the emergency department under a Ngo's act after the police found the patient wandering in the streets and was found to be suicidal. He was evaluated by psychiatry and noted to not be suicidal and the Ngo's act was lifted. An attempt was made to discharge the patient however the patient's family is not willing to take the patient back home. 1. Alzheimer's dementia 2. UTI As mentioned above the patient has a diagnosis of Alzheimer's dementia. After he was brought into the emergency department and admitted he was started on treatment for a urinary tract infection. Initially he was on a Ngo's act and after evaluation by psychiatry the Ngo's act was lifted. CT scan of the head was done which did not show any acute abnormalities. It was thought that the patient may have been encephalopathic because of a urinary tract infection. He was admitted and started on IV antibiotics. The patient received adequate treatment for the urinary tract infection. His mental status did improve somewhat from admission. He is alert and oriented x1 responding to some questions and commands however he is oriented to person and place. Ammonia was within normal limits, the patient was not having any fevers and had a normal WBC count and there is no concern for meningitis at this time. Neurology also evaluated the patient and noted that the patient has Alzheimer's dementia. The patient's mental status is likely due to progression of his Alzheimer's dementia. He can continue to follow-up with neurology for management of his [place]'s dementia. I had a discussion with his son Herman over the phone was not seen his father in years however said that noted that 1-2 years ago the patient's mental status started to deteriorate and his dementia was getting worse. A CODE STATUS discussion was also held with the patient and he said that the patient's wishes were to be DNR DNI. Palliative care also evaluated the patient and his CODE STATUS was subsequently changed to DNR/DNI. 2. Left arm wound Continue wound care, the patient received adequate IV antibiotics while in house. 3. Acute kidney injury possibly secondary to urinary retention. The patient did have an elevation in his serum creatinine which has now normalized. 4. Hypertension Continue current medications. His systolic pressure from this morning was in the 130s. His blood pressure medications should be adjusted as needed. Patient is now DNR/DNI - Time Spent with Patient Total time spent providing and/or coordinating discharge services: Greater than 30 minutes - Quality: VTE Deep Vein Thrombosis/Pulmonary Embolism Present on Admission: No Exam Vital signs: Vital Signs 07/04/18 16:00 07/04/18 20:00 07/05/18 00:00 Temperature 97.7 F 97.2 F L 97.5 F L Pulse Rate 65 72 68 Respiratory Rate 18 19 22 Blood Pressure 147/65 H 110/54 L 155/60 H Pulse Oximetry 98 98 99 07/05/18 08:00 07/05/18 12:00 Temperature 97.2 F L 97.1 F L Pulse Rate 77 63 Respiratory Rate 17 17 Blood Pressure 155/108 H 143/65 H Pulse Oximetry 100 99 Intake & Output 07/04/18 07/05/18 07/05/18 18:59 06:59 18:59 Intake Total 1340 / 1340 1220 / 1220 950 / 950 Output Total 1500 / 1500 550 / 550 Balance -160 / -160 670 / 670 950 / 950 Intake: IV 1100 / 1100 1000 / 1000 950 / 950 1/2 Normal Saline Inj 1,000 ML 1000 / 1000 1000 / 1000 950 / 950 @ 84 mls/hr IV.CONT .[id number] [facility] Rx#:[id number] Rocephin Inj 1,000 MG In NS Inj 100 / 100 100 ML @ 200 mls/hr IV.SIG Q24H [facility] Rx#:[id number] Oral 240 / 240 220 / 220 Output: Urine 550 / 550 Urine Amount (Catheter) 1500 / 1500 Indwelling Urethral Catheter 1500 / 1500 Narrative: General patient in no acute distress. He is alert and oriented x1, to person only. HEENT extraocular movements are intact, clear oropharyngeal mucosa, no JVD Cardiovascular S1-S2 audible, RRR, no murmurs rubs or gallops Respiratory clear to auscultation bilaterally Abdomen soft, nontender, nondistended, normal bowel sounds, Garza catheter in place which was changed today. Extremities no edema 2+ distal pulses in bilateral upper and lower extremities Neuro patient moves all 4 of his extremities sensation is intact bilaterally. Results Procedures completed during hospitalization: Garza Catheter placed on 06/30/2018, changed on 07/05/2018. - Impressions ITS Impressions Head CT 06/22/18 20:28 CONCLUSION: 1. No acute intracranial abnormalities. . Forearm X-Ray 06/26/18 00:00 CONCLUSION: No acute bony abnormality. Lumbar Spine X-Ray 06/26/18 00:00 CONCLUSION: Advanced degenerative disc disease with minimal degenerative listhesis as above. No acute fracture. Mild scoliosis. Thoracic Spine X-Ray 06/26/18 00:00 CONCLUSION: Moderate to advanced degenerative disc disease with mild kyphoscoliosis. Abdomen/Bladder Ultrasound 06/30/18 00:00 CONCLUSION: 1. Echogenic renal cortex without evidence of hydronephrosis suggesting underlying medical renal disease. Chest X-Ray 06/30/18 00:00 CONCLUSION: No acute cardiopulmonary abnormality is identified. Discharge Plan - Discharge Disposition Patient Disposition: 03 Discharge to SNF - Discharge Condition Condition: Stable - Discharge Order Discharge Orders: Discharge Order (Routine); Ordered 07/05/18 Ordered By: Janey Layton - Discharge Details Discharge Comment: Patient is DNR/DNI - Physicians Team Primary Care Provider: UNKNOWN, Attending Provider: Janey Layton Other Providers: [facility] [place] ; Liza Knight MD ; Ana Caceres MD ; Margarita Sandoval MD ; Isaac Vizcarra MD, PhD
== END 2018-07-05 16:15 ==
LOC: NEPE 20:05 → NEDA 20:05 → NEPFCDU 06-24 02:35 → N07 06-30 15:55
PROVIDERS: ADMIT Hospitalist; ATTEND Hospitalist